=== PATIENT | female | born 1950 | race Caucasian/White ===

== ENCOUNTER → 2017-10-06 | Outpatient (CLI) | payer MEDICARE ==
[~2017-10-06] MED LIST: BACTRIM DS TAB1 EACH PO; COUMADIN 2.5MG2.5 M1 PO; DUONEB 2.5-0.5 M3 ML INH; LASIX 20 MG TAB20 MG PO; PERCOCET PO; POTASSIUM20 PO; PROTONIX40 M1 PO; TYLENOL325 MG PO
== END ==
LOC: M.WC 01:49
DX: I87.322 Chronic venous hypertension (idiopathic) with inflammation of left lower extremity (principal); I70.242 Atherosclerosis of native arteries of left leg with ulceration of calf; I70.245 Atherosclerosis of native arteries of left leg with ulceration of other part of foot; I70.248 Atherosclerosis of native arteries of left leg with ulceration of other part of lower leg; L97.821 Non-pressure chronic ulcer of other part of left lower leg limited to breakdown of skin; L97.221 Non-pressure chronic ulcer of left calf limited to breakdown of skin; L97.521 Non-pressure chronic ulcer of other part of left foot limited to breakdown of skin; J44.9 Chronic obstructive pulmonary disease, unspecified; E66.01 Morbid (severe) obesity due to excess calories; K21.9 Gastro-esophageal reflux disease without esophagitis; I50.9 Heart failure, unspecified; Z86.718 Personal history of other venous thrombosis and embolism; Z68.41 Body mass index [BMI] 40.0-44.9, adult; Z87.891 Personal history of nicotine dependence

== ENCOUNTER → 2017-10-13 | Outpatient (CLI) | payer MEDICARE | LOC: M.WC 02:41 | DX: E11.622 Type 2 diabetes mellitus with other skin ulcer (principal); I87.312 Chronic venous hypertension (idiopathic) with ulcer of left lower extremity; L97.821 Non-pressure chronic ulcer of other part of left lower leg limited to breakdown of skin; I70.242 Atherosclerosis of native arteries of left leg with ulceration of calf; L97.221 Non-pressure chronic ulcer of left calf limited to breakdown of skin; I87.321 Chronic venous hypertension (idiopathic) with inflammation of right lower extremity; E11.621 Type 2 diabetes mellitus with foot ulcer; L97.521 Non-pressure chronic ulcer of other part of left foot limited to breakdown of skin; E11.51 Type 2 diabetes mellitus with diabetic peripheral angiopathy without gangrene; I50.9 Heart failure, unspecified; K21.9 Gastro-esophageal reflux disease without esophagitis; J44.9 Chronic obstructive pulmonary disease, unspecified; E66.01 Morbid (severe) obesity due to excess calories; Z68.41 Body mass index [BMI] 40.0-44.9, adult; Z87.891 Personal history of nicotine dependence; Z86.718 Personal history of other venous thrombosis and embolism ==

== ENCOUNTER → 2017-10-20 | Outpatient (CLI) | payer MEDICARE | LOC: M.WC 01:23 | DX: I87.312 Chronic venous hypertension (idiopathic) with ulcer of left lower extremity (principal); E11.622 Type 2 diabetes mellitus with other skin ulcer; I70.242 Atherosclerosis of native arteries of left leg with ulceration of calf; L97.821 Non-pressure chronic ulcer of other part of left lower leg limited to breakdown of skin; E11.621 Type 2 diabetes mellitus with foot ulcer; L97.521 Non-pressure chronic ulcer of other part of left foot limited to breakdown of skin; I82.592 Chronic embolism and thrombosis of other specified deep vein of left lower extremity; J44.9 Chronic obstructive pulmonary disease, unspecified; K21.9 Gastro-esophageal reflux disease without esophagitis; E11.51 Type 2 diabetes mellitus with diabetic peripheral angiopathy without gangrene; I50.9 Heart failure, unspecified; E66.01 Morbid (severe) obesity due to excess calories; Z68.41 Body mass index [BMI] 40.0-44.9, adult; Z86.718 Personal history of other venous thrombosis and embolism; Z87.891 Personal history of nicotine dependence ==

== ENCOUNTER → 2017-10-27 | Outpatient (CLI) | payer MEDICARE | LOC: M.WC 01:16 | DX: E11.622 Type 2 diabetes mellitus with other skin ulcer (principal); I87.312 Chronic venous hypertension (idiopathic) with ulcer of left lower extremity; L97.321 Non-pressure chronic ulcer of left ankle limited to breakdown of skin; L97.811 Non-pressure chronic ulcer of other part of right lower leg limited to breakdown of skin; L97.821 Non-pressure chronic ulcer of other part of left lower leg limited to breakdown of skin; I70.242 Atherosclerosis of native arteries of left leg with ulceration of calf; J44.9 Chronic obstructive pulmonary disease, unspecified; E66.01 Morbid (severe) obesity due to excess calories; Z68.41 Body mass index [BMI] 40.0-44.9, adult ==

== ENCOUNTER → 2017-10-29 | Outpatient (CLI) | payer MEDICARE | LOC: M.WC 01:51 | DX: E11.622 Type 2 diabetes mellitus with other skin ulcer (principal); I70.242 Atherosclerosis of native arteries of left leg with ulceration of calf; L97.221 Non-pressure chronic ulcer of left calf limited to breakdown of skin; L97.521 Non-pressure chronic ulcer of other part of left foot limited to breakdown of skin; E11.51 Type 2 diabetes mellitus with diabetic peripheral angiopathy without gangrene; I50.9 Heart failure, unspecified; K21.9 Gastro-esophageal reflux disease without esophagitis; J44.9 Chronic obstructive pulmonary disease, unspecified; Z86.718 Personal history of other venous thrombosis and embolism; Z87.891 Personal history of nicotine dependence ==

== ENCOUNTER → 2017-11-03 | Outpatient (CLI) | payer MEDICARE | LOC: M.WC 01:26 | DX: I87.312 Chronic venous hypertension (idiopathic) with ulcer of left lower extremity (principal); I70.245 Atherosclerosis of native arteries of left leg with ulceration of other part of foot; I70.242 Atherosclerosis of native arteries of left leg with ulceration of calf; L97.221 Non-pressure chronic ulcer of left calf limited to breakdown of skin; L97.521 Non-pressure chronic ulcer of other part of left foot limited to breakdown of skin; J44.9 Chronic obstructive pulmonary disease, unspecified; E66.01 Morbid (severe) obesity due to excess calories; K21.9 Gastro-esophageal reflux disease without esophagitis; I50.9 Heart failure, unspecified; Z87.891 Personal history of nicotine dependence; Z68.41 Body mass index [BMI] 40.0-44.9, adult; Z86.718 Personal history of other venous thrombosis and embolism ==

== ENCOUNTER → 2017-11-11 | Outpatient (CLI) | payer MEDICARE | LOC: M.WC 01:49 | DX: E11.621 Type 2 diabetes mellitus with foot ulcer (principal); L97.521 Non-pressure chronic ulcer of other part of left foot limited to breakdown of skin; E11.622 Type 2 diabetes mellitus with other skin ulcer; I87.321 Chronic venous hypertension (idiopathic) with inflammation of right lower extremity; L97.821 Non-pressure chronic ulcer of other part of left lower leg limited to breakdown of skin; I82.592 Chronic embolism and thrombosis of other specified deep vein of left lower extremity; I87.312 Chronic venous hypertension (idiopathic) with ulcer of left lower extremity; J44.9 Chronic obstructive pulmonary disease, unspecified; E66.01 Morbid (severe) obesity due to excess calories; Z68.41 Body mass index [BMI] 40.0-44.9, adult; K21.9 Gastro-esophageal reflux disease without esophagitis; E11.51 Type 2 diabetes mellitus with diabetic peripheral angiopathy without gangrene; I50.9 Heart failure, unspecified; Z87.891 Personal history of nicotine dependence; Z86.718 Personal history of other venous thrombosis and embolism ==

== ENCOUNTER → 2017-11-17 | Outpatient (CLI) | payer MEDICARE | LOC: M.WC 11-10 10:00 | DX: E11.622 Type 2 diabetes mellitus with other skin ulcer (principal); I82.592 Chronic embolism and thrombosis of other specified deep vein of left lower extremity; I87.312 Chronic venous hypertension (idiopathic) with ulcer of left lower extremity; I70.242 Atherosclerosis of native arteries of left leg with ulceration of calf; I87.321 Chronic venous hypertension (idiopathic) with inflammation of right lower extremity; L97.821 Non-pressure chronic ulcer of other part of left lower leg limited to breakdown of skin; L97.811 Non-pressure chronic ulcer of other part of right lower leg limited to breakdown of skin; J44.9 Chronic obstructive pulmonary disease, unspecified; E66.01 Morbid (severe) obesity due to excess calories; Z68.41 Body mass index [BMI] 40.0-44.9, adult; K21.9 Gastro-esophageal reflux disease without esophagitis; E11.51 Type 2 diabetes mellitus with diabetic peripheral angiopathy without gangrene; I50.9 Heart failure, unspecified; Z86.718 Personal history of other venous thrombosis and embolism; Z87.891 Personal history of nicotine dependence ==

== ENCOUNTER → 2017-12-08 | Outpatient (CLI) | payer MEDICARE | LOC: M.WC 11:00 | DX: E11.621 Type 2 diabetes mellitus with foot ulcer (principal); L97.823 Non-pressure chronic ulcer of other part of left lower leg with necrosis of muscle; L97.521 Non-pressure chronic ulcer of other part of left foot limited to breakdown of skin; I87.332 Chronic venous hypertension (idiopathic) with ulcer and inflammation of left lower extremity; I70.242 Atherosclerosis of native arteries of left leg with ulceration of calf; E66.01 Morbid (severe) obesity due to excess calories; E11.51 Type 2 diabetes mellitus with diabetic peripheral angiopathy without gangrene; I50.9 Heart failure, unspecified; K21.9 Gastro-esophageal reflux disease without esophagitis; J44.9 Chronic obstructive pulmonary disease, unspecified; Z86.718 Personal history of other venous thrombosis and embolism; Z68.41 Body mass index [BMI] 40.0-44.9, adult; Z87.891 Personal history of nicotine dependence ==

== ENCOUNTER → 2017-12-22 | Outpatient (CLI) | payer MEDICARE | LOC: M.WC 12-15 01:56 | DX: I87.321 Chronic venous hypertension (idiopathic) with inflammation of right lower extremity (principal); E11.622 Type 2 diabetes mellitus with other skin ulcer; I87.312 Chronic venous hypertension (idiopathic) with ulcer of left lower extremity; I70.242 Atherosclerosis of native arteries of left leg with ulceration of calf; I82.592 Chronic embolism and thrombosis of other specified deep vein of left lower extremity; L97.821 Non-pressure chronic ulcer of other part of left lower leg limited to breakdown of skin; L97.811 Non-pressure chronic ulcer of other part of right lower leg limited to breakdown of skin; J44.9 Chronic obstructive pulmonary disease, unspecified; K21.9 Gastro-esophageal reflux disease without esophagitis; I50.9 Heart failure, unspecified; E11.51 Type 2 diabetes mellitus with diabetic peripheral angiopathy without gangrene; E66.01 Morbid (severe) obesity due to excess calories; Z68.41 Body mass index [BMI] 40.0-44.9, adult; Z87.891 Personal history of nicotine dependence ==

== ENCOUNTER → 2017-12-31 | Outpatient (CLI) | payer MEDICARE | LOC: M.WC 02:09 | DX: I87.321 Chronic venous hypertension (idiopathic) with inflammation of right lower extremity (principal); L97.811 Non-pressure chronic ulcer of other part of right lower leg limited to breakdown of skin; I87.312 Chronic venous hypertension (idiopathic) with ulcer of left lower extremity; L97.821 Non-pressure chronic ulcer of other part of left lower leg limited to breakdown of skin; L97.521 Non-pressure chronic ulcer of other part of left foot limited to breakdown of skin; I70.242 Atherosclerosis of native arteries of left leg with ulceration of calf; I82.592 Chronic embolism and thrombosis of other specified deep vein of left lower extremity; J44.9 Chronic obstructive pulmonary disease, unspecified; E66.01 Morbid (severe) obesity due to excess calories; Z68.41 Body mass index [BMI] 40.0-44.9, adult; K21.9 Gastro-esophageal reflux disease without esophagitis; E11.51 Type 2 diabetes mellitus with diabetic peripheral angiopathy without gangrene; I50.9 Heart failure, unspecified; Z86.718 Personal history of other venous thrombosis and embolism; Z87.891 Personal history of nicotine dependence ==

== ENCOUNTER → 2018-01-05 | Outpatient (CLI) | payer MEDICARE | LOC: M.WC 01:07 | DX: I87.321 Chronic venous hypertension (idiopathic) with inflammation of right lower extremity (principal); E11.622 Type 2 diabetes mellitus with other skin ulcer; I87.312 Chronic venous hypertension (idiopathic) with ulcer of left lower extremity; I70.242 Atherosclerosis of native arteries of left leg with ulceration of calf; L97.811 Non-pressure chronic ulcer of other part of right lower leg limited to breakdown of skin; L97.821 Non-pressure chronic ulcer of other part of left lower leg limited to breakdown of skin; I82.592 Chronic embolism and thrombosis of other specified deep vein of left lower extremity; J44.9 Chronic obstructive pulmonary disease, unspecified; E66.01 Morbid (severe) obesity due to excess calories; K21.9 Gastro-esophageal reflux disease without esophagitis; E11.51 Type 2 diabetes mellitus with diabetic peripheral angiopathy without gangrene; Z86.718 Personal history of other venous thrombosis and embolism; Z87.891 Personal history of nicotine dependence ==

== ENCOUNTER → 2018-01-12 | Outpatient (CLI) | payer MEDICARE | LOC: M.WC 02:48 | DX: E11.622 Type 2 diabetes mellitus with other skin ulcer (principal); I87.312 Chronic venous hypertension (idiopathic) with ulcer of left lower extremity; L97.821 Non-pressure chronic ulcer of other part of left lower leg limited to breakdown of skin; L97.521 Non-pressure chronic ulcer of other part of left foot limited to breakdown of skin; I82.592 Chronic embolism and thrombosis of other specified deep vein of left lower extremity; I70.242 Atherosclerosis of native arteries of left leg with ulceration of calf; E11.51 Type 2 diabetes mellitus with diabetic peripheral angiopathy without gangrene; E66.01 Morbid (severe) obesity due to excess calories; I11.0 Hypertensive heart disease with heart failure; I50.9 Heart failure, unspecified; K21.9 Gastro-esophageal reflux disease without esophagitis; J44.9 Chronic obstructive pulmonary disease, unspecified; F06.32 Mood disorder due to known physiological condition with major depressive-like episode; Z87.891 Personal history of nicotine dependence; Z68.41 Body mass index [BMI] 40.0-44.9, adult ==

== ENCOUNTER → 2018-01-19 | Outpatient (CLI) | payer MEDICARE | LOC: M.WC 03:06 | DX: E11.622 Type 2 diabetes mellitus with other skin ulcer (principal); I87.312 Chronic venous hypertension (idiopathic) with ulcer of left lower extremity; L97.821 Non-pressure chronic ulcer of other part of left lower leg limited to breakdown of skin; I87.321 Chronic venous hypertension (idiopathic) with inflammation of right lower extremity; I70.242 Atherosclerosis of native arteries of left leg with ulceration of calf; I82.592 Chronic embolism and thrombosis of other specified deep vein of left lower extremity; J44.9 Chronic obstructive pulmonary disease, unspecified; E66.01 Morbid (severe) obesity due to excess calories; Z68.41 Body mass index [BMI] 40.0-44.9, adult; F06.32 Mood disorder due to known physiological condition with major depressive-like episode; K21.9 Gastro-esophageal reflux disease without esophagitis; E11.51 Type 2 diabetes mellitus with diabetic peripheral angiopathy without gangrene; Z86.718 Personal history of other venous thrombosis and embolism; I50.9 Heart failure, unspecified; Z87.891 Personal history of nicotine dependence ==

== ENCOUNTER → 2018-01-26 | Outpatient (CLI) | payer MEDICARE | LOC: M.WC 04:28 | DX: E11.622 Type 2 diabetes mellitus with other skin ulcer (principal); I87.312 Chronic venous hypertension (idiopathic) with ulcer of left lower extremity; L97.821 Non-pressure chronic ulcer of other part of left lower leg limited to breakdown of skin; I70.242 Atherosclerosis of native arteries of left leg with ulceration of calf; I82.592 Chronic embolism and thrombosis of other specified deep vein of left lower extremity; J44.9 Chronic obstructive pulmonary disease, unspecified; E66.01 Morbid (severe) obesity due to excess calories; F06.32 Mood disorder due to known physiological condition with major depressive-like episode; K21.9 Gastro-esophageal reflux disease without esophagitis; E11.51 Type 2 diabetes mellitus with diabetic peripheral angiopathy without gangrene; I50.9 Heart failure, unspecified; Z68.41 Body mass index [BMI] 40.0-44.9, adult; Z86.718 Personal history of other venous thrombosis and embolism; Z87.891 Personal history of nicotine dependence ==

== ENCOUNTER → 2018-02-09 | Outpatient (CLI) | payer MEDICARE | LOC: M.WC 02-02 02:52 | DX: E11.622 Type 2 diabetes mellitus with other skin ulcer (principal); I87.312 Chronic venous hypertension (idiopathic) with ulcer of left lower extremity; L97.821 Non-pressure chronic ulcer of other part of left lower leg limited to breakdown of skin; I87.321 Chronic venous hypertension (idiopathic) with inflammation of right lower extremity; L97.811 Non-pressure chronic ulcer of other part of right lower leg limited to breakdown of skin; I70.242 Atherosclerosis of native arteries of left leg with ulceration of calf; E11.51 Type 2 diabetes mellitus with diabetic peripheral angiopathy without gangrene; I50.9 Heart failure, unspecified; E66.01 Morbid (severe) obesity due to excess calories; K21.9 Gastro-esophageal reflux disease without esophagitis; J44.9 Chronic obstructive pulmonary disease, unspecified; F06.32 Mood disorder due to known physiological condition with major depressive-like episode; Z87.891 Personal history of nicotine dependence; Z86.718 Personal history of other venous thrombosis and embolism; Z68.41 Body mass index [BMI] 40.0-44.9, adult ==

== ENCOUNTER → 2018-02-16 | Outpatient (CLI) | payer MEDICARE | LOC: M.WC 03:41 | DX: E11.622 Type 2 diabetes mellitus with other skin ulcer (principal); I87.312 Chronic venous hypertension (idiopathic) with ulcer of left lower extremity; L97.821 Non-pressure chronic ulcer of other part of left lower leg limited to breakdown of skin; I87.321 Chronic venous hypertension (idiopathic) with inflammation of right lower extremity; L97.811 Non-pressure chronic ulcer of other part of right lower leg limited to breakdown of skin; J44.9 Chronic obstructive pulmonary disease, unspecified; E66.01 Morbid (severe) obesity due to excess calories; F06.32 Mood disorder due to known physiological condition with major depressive-like episode; K21.9 Gastro-esophageal reflux disease without esophagitis; E11.51 Type 2 diabetes mellitus with diabetic peripheral angiopathy without gangrene; I50.9 Heart failure, unspecified; Z86.718 Personal history of other venous thrombosis and embolism; Z87.891 Personal history of nicotine dependence; Z68.41 Body mass index [BMI] 40.0-44.9, adult ==

== ENCOUNTER → 2018-03-02 | Outpatient (CLI) | payer MEDICARE | LOC: M.WC 04:13 | DX: E11.622 Type 2 diabetes mellitus with other skin ulcer (principal); I70.242 Atherosclerosis of native arteries of left leg with ulceration of calf; L97.821 Non-pressure chronic ulcer of other part of left lower leg limited to breakdown of skin; I87.312 Chronic venous hypertension (idiopathic) with ulcer of left lower extremity; I87.321 Chronic venous hypertension (idiopathic) with inflammation of right lower extremity; L97.811 Non-pressure chronic ulcer of other part of right lower leg limited to breakdown of skin; E11.51 Type 2 diabetes mellitus with diabetic peripheral angiopathy without gangrene; I50.9 Heart failure, unspecified; K21.9 Gastro-esophageal reflux disease without esophagitis; E66.01 Morbid (severe) obesity due to excess calories; F06.32 Mood disorder due to known physiological condition with major depressive-like episode; J44.9 Chronic obstructive pulmonary disease, unspecified; Z87.891 Personal history of nicotine dependence; Z68.41 Body mass index [BMI] 40.0-44.9, adult; Z86.73 Personal history of transient ischemic attack (TIA), and cerebral infarction without residual deficits; E11.621 Type 2 diabetes mellitus with foot ulcer ==

== ENCOUNTER → 2018-03-16 | Outpatient (CLI) | payer MEDICARE | LOC: M.WC 03-09 03:34 | DX: E11.622 Type 2 diabetes mellitus with other skin ulcer (principal); I70.242 Atherosclerosis of native arteries of left leg with ulceration of calf; L97.221 Non-pressure chronic ulcer of left calf limited to breakdown of skin; I50.9 Heart failure, unspecified; I87.2 Venous insufficiency (chronic) (peripheral); E66.01 Morbid (severe) obesity due to excess calories; K21.9 Gastro-esophageal reflux disease without esophagitis; J44.9 Chronic obstructive pulmonary disease, unspecified; F06.32 Mood disorder due to known physiological condition with major depressive-like episode; Z86.718 Personal history of other venous thrombosis and embolism; Z68.41 Body mass index [BMI] 40.0-44.9, adult; Z87.891 Personal history of nicotine dependence ==

== ENCOUNTER → 2018-03-23 | Outpatient (CLI) | payer MEDICARE | LOC: M.WC 04:05 | DX: I87.312 Chronic venous hypertension (idiopathic) with ulcer of left lower extremity (principal); E11.622 Type 2 diabetes mellitus with other skin ulcer; L97.821 Non-pressure chronic ulcer of other part of left lower leg limited to breakdown of skin; J44.9 Chronic obstructive pulmonary disease, unspecified; E66.01 Morbid (severe) obesity due to excess calories; F06.32 Mood disorder due to known physiological condition with major depressive-like episode; I50.9 Heart failure, unspecified; K21.9 Gastro-esophageal reflux disease without esophagitis; E11.51 Type 2 diabetes mellitus with diabetic peripheral angiopathy without gangrene; Z86.718 Personal history of other venous thrombosis and embolism; Z87.891 Personal history of nicotine dependence; Z68.41 Body mass index [BMI] 40.0-44.9, adult ==

== ENCOUNTER → 2018-04-13 | Outpatient (CLI) | payer MEDICARE | LOC: M.WC 04:39 | DX: I87.312 Chronic venous hypertension (idiopathic) with ulcer of left lower extremity (principal); E11.621 Type 2 diabetes mellitus with foot ulcer; L97.521 Non-pressure chronic ulcer of other part of left foot limited to breakdown of skin; E11.622 Type 2 diabetes mellitus with other skin ulcer; I70.248 Atherosclerosis of native arteries of left leg with ulceration of other part of lower leg; L97.821 Non-pressure chronic ulcer of other part of left lower leg limited to breakdown of skin; J44.9 Chronic obstructive pulmonary disease, unspecified; E66.01 Morbid (severe) obesity due to excess calories; K21.9 Gastro-esophageal reflux disease without esophagitis; E11.51 Type 2 diabetes mellitus with diabetic peripheral angiopathy without gangrene; I50.9 Heart failure, unspecified; Z86.718 Personal history of other venous thrombosis and embolism; Z87.891 Personal history of nicotine dependence ==

== ENCOUNTER → 2018-05-04 | Outpatient (CLI) | payer MEDICARE | LOC: M.WC 04-20 05:12 | DX: E11.622 Type 2 diabetes mellitus with other skin ulcer (principal); I70.242 Atherosclerosis of native arteries of left leg with ulceration of calf; I87.312 Chronic venous hypertension (idiopathic) with ulcer of left lower extremity; L97.221 Non-pressure chronic ulcer of left calf limited to breakdown of skin; I87.321 Chronic venous hypertension (idiopathic) with inflammation of right lower extremity; L97.811 Non-pressure chronic ulcer of other part of right lower leg limited to breakdown of skin; E11.51 Type 2 diabetes mellitus with diabetic peripheral angiopathy without gangrene; I89.0 Lymphedema, not elsewhere classified; K21.9 Gastro-esophageal reflux disease without esophagitis; E66.01 Morbid (severe) obesity due to excess calories; I82.592 Chronic embolism and thrombosis of other specified deep vein of left lower extremity; I50.9 Heart failure, unspecified; J44.9 Chronic obstructive pulmonary disease, unspecified; F06.32 Mood disorder due to known physiological condition with major depressive-like episode; Z68.41 Body mass index [BMI] 40.0-44.9, adult; Z87.891 Personal history of nicotine dependence ==

== ENCOUNTER → 2018-05-27 | Outpatient (CLI) | payer MEDICARE | LOC: M.WC 05-11 04:08 | DX: E11.622 Type 2 diabetes mellitus with other skin ulcer (principal); L97.221 Non-pressure chronic ulcer of left calf limited to breakdown of skin; E11.621 Type 2 diabetes mellitus with foot ulcer; L97.521 Non-pressure chronic ulcer of other part of left foot limited to breakdown of skin; I87.312 Chronic venous hypertension (idiopathic) with ulcer of left lower extremity; I70.242 Atherosclerosis of native arteries of left leg with ulceration of calf; I50.9 Heart failure, unspecified; E66.01 Morbid (severe) obesity due to excess calories; J44.9 Chronic obstructive pulmonary disease, unspecified; K21.9 Gastro-esophageal reflux disease without esophagitis; F32.9 Major depressive disorder, single episode, unspecified; F41.9 Anxiety disorder, unspecified; Z68.41 Body mass index [BMI] 40.0-44.9, adult; Z86.718 Personal history of other venous thrombosis and embolism; Z87.891 Personal history of nicotine dependence ==

== ENCOUNTER → 2018-07-14 | Outpatient (CLI) | payer MEDICARE | LOC: M.WC 07-08 04:56 → M.ULTRA 05:11 → M.WC 09:00 | DX: E11.622 Type 2 diabetes mellitus with other skin ulcer (principal); L97.811 Non-pressure chronic ulcer of other part of right lower leg limited to breakdown of skin; E11.621 Type 2 diabetes mellitus with foot ulcer; L97.521 Non-pressure chronic ulcer of other part of left foot limited to breakdown of skin; I82.592 Chronic embolism and thrombosis of other specified deep vein of left lower extremity; I87.312 Chronic venous hypertension (idiopathic) with ulcer of left lower extremity; I87.321 Chronic venous hypertension (idiopathic) with inflammation of right lower extremity; I70.242 Atherosclerosis of native arteries of left leg with ulceration of calf; E11.51 Type 2 diabetes mellitus with diabetic peripheral angiopathy without gangrene; E66.9 Obesity, unspecified; E66.01 Morbid (severe) obesity due to excess calories; I50.9 Heart failure, unspecified; J44.9 Chronic obstructive pulmonary disease, unspecified; K21.9 Gastro-esophageal reflux disease without esophagitis; F06.32 Mood disorder due to known physiological condition with major depressive-like episode; F41.1 Generalized anxiety disorder; F32.9 Major depressive disorder, single episode, unspecified; Z68.41 Body mass index [BMI] 40.0-44.9, adult; Z87.891 Personal history of nicotine dependence ==

== ENCOUNTER → 2018-07-19 | Outpatient (CLI) | payer MEDICARE | LOC: M.WC 05:20 | DX: E11.622 Type 2 diabetes mellitus with other skin ulcer (principal); I87.321 Chronic venous hypertension (idiopathic) with inflammation of right lower extremity; L97.811 Non-pressure chronic ulcer of other part of right lower leg limited to breakdown of skin; E11.621 Type 2 diabetes mellitus with foot ulcer; I87.312 Chronic venous hypertension (idiopathic) with ulcer of left lower extremity; L97.521 Non-pressure chronic ulcer of other part of left foot limited to breakdown of skin; I70.242 Atherosclerosis of native arteries of left leg with ulceration of calf; L97.228 Non-pressure chronic ulcer of left calf with other specified severity; I82.592 Chronic embolism and thrombosis of other specified deep vein of left lower extremity; E11.51 Type 2 diabetes mellitus with diabetic peripheral angiopathy without gangrene; E66.01 Morbid (severe) obesity due to excess calories; I50.9 Heart failure, unspecified; J44.9 Chronic obstructive pulmonary disease, unspecified; K21.9 Gastro-esophageal reflux disease without esophagitis; F32.9 Major depressive disorder, single episode, unspecified; F06.32 Mood disorder due to known physiological condition with major depressive-like episode; F41.1 Generalized anxiety disorder; Z87.891 Personal history of nicotine dependence; Z68.41 Body mass index [BMI] 40.0-44.9, adult ==

== ENCOUNTER → 2018-07-22 | Outpatient (CLI) | payer MEDICARE | LOC: M.WC 07-21 05:56 | DX: E11.621 Type 2 diabetes mellitus with foot ulcer (principal); I87.313 Chronic venous hypertension (idiopathic) with ulcer of bilateral lower extremity; L97.521 Non-pressure chronic ulcer of other part of left foot limited to breakdown of skin; I70.245 Atherosclerosis of native arteries of left leg with ulceration of other part of foot; E11.622 Type 2 diabetes mellitus with other skin ulcer; L97.811 Non-pressure chronic ulcer of other part of right lower leg limited to breakdown of skin; I82.592 Chronic embolism and thrombosis of other specified deep vein of left lower extremity; E11.51 Type 2 diabetes mellitus with diabetic peripheral angiopathy without gangrene; E66.01 Morbid (severe) obesity due to excess calories; I50.9 Heart failure, unspecified; J44.9 Chronic obstructive pulmonary disease, unspecified; K21.9 Gastro-esophageal reflux disease without esophagitis; F41.1 Generalized anxiety disorder; F32.9 Major depressive disorder, single episode, unspecified; F06.32 Mood disorder due to known physiological condition with major depressive-like episode; Z87.891 Personal history of nicotine dependence; Z68.41 Body mass index [BMI] 40.0-44.9, adult ==

== ENCOUNTER → 2018-07-25 | Outpatient (CLI) | payer MEDICARE | LOC: M.WC 01:49 | DX: E11.621 Type 2 diabetes mellitus with foot ulcer (principal); I87.323 Chronic venous hypertension (idiopathic) with inflammation of bilateral lower extremity; L97.521 Non-pressure chronic ulcer of other part of left foot limited to breakdown of skin; I70.245 Atherosclerosis of native arteries of left leg with ulceration of other part of foot; E11.622 Type 2 diabetes mellitus with other skin ulcer; L97.811 Non-pressure chronic ulcer of other part of right lower leg limited to breakdown of skin; E11.51 Type 2 diabetes mellitus with diabetic peripheral angiopathy without gangrene; I82.592 Chronic embolism and thrombosis of other specified deep vein of left lower extremity; I50.9 Heart failure, unspecified; J44.9 Chronic obstructive pulmonary disease, unspecified; E66.01 Morbid (severe) obesity due to excess calories; K21.9 Gastro-esophageal reflux disease without esophagitis; F06.32 Mood disorder due to known physiological condition with major depressive-like episode; F41.1 Generalized anxiety disorder; Z87.891 Personal history of nicotine dependence; Z68.41 Body mass index [BMI] 40.0-44.9, adult ==

== ENCOUNTER → 2018-07-29 | Outpatient (CLI) | payer MEDICARE | LOC: M.WC 05:28 | DX: E11.621 Type 2 diabetes mellitus with foot ulcer (principal); I87.312 Chronic venous hypertension (idiopathic) with ulcer of left lower extremity; L97.521 Non-pressure chronic ulcer of other part of left foot limited to breakdown of skin; E11.622 Type 2 diabetes mellitus with other skin ulcer; I87.321 Chronic venous hypertension (idiopathic) with inflammation of right lower extremity; L97.811 Non-pressure chronic ulcer of other part of right lower leg limited to breakdown of skin; I82.592 Chronic embolism and thrombosis of other specified deep vein of left lower extremity; E66.01 Morbid (severe) obesity due to excess calories; K21.9 Gastro-esophageal reflux disease without esophagitis; I73.9 Peripheral vascular disease, unspecified; I50.9 Heart failure, unspecified; E66.9 Obesity, unspecified; J44.9 Chronic obstructive pulmonary disease, unspecified; F41.1 Generalized anxiety disorder; Z87.891 Personal history of nicotine dependence; Z68.41 Body mass index [BMI] 40.0-44.9, adult ==

== ENCOUNTER → 2018-08-05 | Outpatient (CLI) | payer MEDICARE | LOC: M.WC 03:45 | DX: E11.621 Type 2 diabetes mellitus with foot ulcer (principal); I87.312 Chronic venous hypertension (idiopathic) with ulcer of left lower extremity; I70.245 Atherosclerosis of native arteries of left leg with ulceration of other part of foot; L97.521 Non-pressure chronic ulcer of other part of left foot limited to breakdown of skin; E11.622 Type 2 diabetes mellitus with other skin ulcer; I87.331 Chronic venous hypertension (idiopathic) with ulcer and inflammation of right lower extremity; L97.811 Non-pressure chronic ulcer of other part of right lower leg limited to breakdown of skin; E11.51 Type 2 diabetes mellitus with diabetic peripheral angiopathy without gangrene; E66.01 Morbid (severe) obesity due to excess calories; I82.592 Chronic embolism and thrombosis of other specified deep vein of left lower extremity; I50.9 Heart failure, unspecified; K21.9 Gastro-esophageal reflux disease without esophagitis; J44.9 Chronic obstructive pulmonary disease, unspecified; F06.32 Mood disorder due to known physiological condition with major depressive-like episode; F41.1 Generalized anxiety disorder; F32.9 Major depressive disorder, single episode, unspecified; Z68.41 Body mass index [BMI] 40.0-44.9, adult; Z87.891 Personal history of nicotine dependence ==

== ENCOUNTER → 2018-08-12 | Outpatient (CLI) | payer MEDICARE | LOC: M.WC 00:42 | DX: E11.621 Type 2 diabetes mellitus with foot ulcer (principal); I87.312 Chronic venous hypertension (idiopathic) with ulcer of left lower extremity; L97.521 Non-pressure chronic ulcer of other part of left foot limited to breakdown of skin; E11.622 Type 2 diabetes mellitus with other skin ulcer; I70.242 Atherosclerosis of native arteries of left leg with ulceration of calf; L97.221 Non-pressure chronic ulcer of left calf limited to breakdown of skin; I82.592 Chronic embolism and thrombosis of other specified deep vein of left lower extremity; I87.321 Chronic venous hypertension (idiopathic) with inflammation of right lower extremity; E11.51 Type 2 diabetes mellitus with diabetic peripheral angiopathy without gangrene; E66.01 Morbid (severe) obesity due to excess calories; I50.9 Heart failure, unspecified; J44.9 Chronic obstructive pulmonary disease, unspecified; K21.9 Gastro-esophageal reflux disease without esophagitis; F06.32 Mood disorder due to known physiological condition with major depressive-like episode; F41.1 Generalized anxiety disorder; F32.9 Major depressive disorder, single episode, unspecified; Z68.41 Body mass index [BMI] 40.0-44.9, adult; Z87.891 Personal history of nicotine dependence ==

== ENCOUNTER → 2018-08-22 | Outpatient (CLI) | payer MEDICARE | LOC: M.WC 08-19 04:49 | DX: E11.621 Type 2 diabetes mellitus with foot ulcer (principal); L97.521 Non-pressure chronic ulcer of other part of left foot limited to breakdown of skin; E11.622 Type 2 diabetes mellitus with other skin ulcer; I87.312 Chronic venous hypertension (idiopathic) with ulcer of left lower extremity; I70.242 Atherosclerosis of native arteries of left leg with ulceration of calf; L97.221 Non-pressure chronic ulcer of left calf limited to breakdown of skin; I87.321 Chronic venous hypertension (idiopathic) with inflammation of right lower extremity; L97.818 Non-pressure chronic ulcer of other part of right lower leg with other specified severity; L97.121 Non-pressure chronic ulcer of left thigh limited to breakdown of skin; L89.892 Pressure ulcer of other site, stage 2; L97.111 Non-pressure chronic ulcer of right thigh limited to breakdown of skin; E66.01 Morbid (severe) obesity due to excess calories; I50.9 Heart failure, unspecified; I82.592 Chronic embolism and thrombosis of other specified deep vein of left lower extremity; J44.9 Chronic obstructive pulmonary disease, unspecified; K21.9 Gastro-esophageal reflux disease without esophagitis; F32.9 Major depressive disorder, single episode, unspecified; F41.1 Generalized anxiety disorder; Z68.41 Body mass index [BMI] 40.0-44.9, adult; Z87.891 Personal history of nicotine dependence ==

== ENCOUNTER → 2018-09-02 | Outpatient (CLI) | payer MEDICARE | LOC: M.WC 04:35 | DX: E11.621 Type 2 diabetes mellitus with foot ulcer (principal); L97.521 Non-pressure chronic ulcer of other part of left foot limited to breakdown of skin; E11.622 Type 2 diabetes mellitus with other skin ulcer; I87.312 Chronic venous hypertension (idiopathic) with ulcer of left lower extremity; I70.242 Atherosclerosis of native arteries of left leg with ulceration of calf; L97.222 Non-pressure chronic ulcer of left calf with fat layer exposed; I87.321 Chronic venous hypertension (idiopathic) with inflammation of right lower extremity; L97.812 Non-pressure chronic ulcer of other part of right lower leg with fat layer exposed; L89.892 Pressure ulcer of other site, stage 2; L97.111 Non-pressure chronic ulcer of right thigh limited to breakdown of skin; L97.121 Non-pressure chronic ulcer of left thigh limited to breakdown of skin; E11.51 Type 2 diabetes mellitus with diabetic peripheral angiopathy without gangrene; E66.01 Morbid (severe) obesity due to excess calories; I11.0 Hypertensive heart disease with heart failure; I50.9 Heart failure, unspecified; I82.592 Chronic embolism and thrombosis of other specified deep vein of left lower extremity; J44.9 Chronic obstructive pulmonary disease, unspecified; K21.9 Gastro-esophageal reflux disease without esophagitis; F06.32 Mood disorder due to known physiological condition with major depressive-like episode; F41.1 Generalized anxiety disorder; F32.9 Major depressive disorder, single episode, unspecified; Z68.41 Body mass index [BMI] 40.0-44.9, adult; Z87.891 Personal history of nicotine dependence ==

== ENCOUNTER → 2018-09-16 | Outpatient (CLI) | payer MEDICARE | LOC: M.WC 04:26 | DX: I87.312 Chronic venous hypertension (idiopathic) with ulcer of left lower extremity (principal); L97.522 Non-pressure chronic ulcer of other part of left foot with fat layer exposed; I70.242 Atherosclerosis of native arteries of left leg with ulceration of calf; L97.221 Non-pressure chronic ulcer of left calf limited to breakdown of skin; E66.01 Morbid (severe) obesity due to excess calories; I82.592 Chronic embolism and thrombosis of other specified deep vein of left lower extremity; K21.9 Gastro-esophageal reflux disease without esophagitis; I50.9 Heart failure, unspecified; J44.9 Chronic obstructive pulmonary disease, unspecified; F06.32 Mood disorder due to known physiological condition with major depressive-like episode; F41.1 Generalized anxiety disorder; F41.9 Anxiety disorder, unspecified; F32.9 Major depressive disorder, single episode, unspecified; Z87.891 Personal history of nicotine dependence; Z68.41 Body mass index [BMI] 40.0-44.9, adult ==

== ENCOUNTER 2018-10-17 12:35 | Inpatient (IN) | payer MEDICARE ==
[~2018-10-17] VITALS: Ht 160 cm; Wt 144.7 kg
[~2018-10-17 12:35] MED LIST changes: -COUMADIN 2.5MG2.5 M1 PO; +COUMADIN 3 MG TA3 M1 PO
[2018-10-17 12:37] VITALS: BP 136/95
[2018-10-17] MEDS ORDERED: XANAX 0.5 MG0.5 MG PO (12:54)
[2018-10-17 13:11] LABS: HEMATOCRIT 31.8 % (37.0-47.0); HEMOGLOBIN 9.6 gm/dL (12.0-15.0); MCH 25.7 pg (26.0-34.0); MCHC 30.2 g/dL (28.0-37.0); MCV 85.2 fL (80.0-100.0); MPV 7.3 fl. (7.2-11.1); NUCLEATED RBCS 0 /100WBC; PLATELET COUNT* 432 thou/uL (150-400); RBC 3.74 mil/uL (4.20-5.00); RDW-CV 17.6 % (10.5-14.5); WBC 19.6 thou/uL (4.0-11.0)
[2018-10-17 13:18] LABS: BE 8.7 mmol/L (-2 to +3)
[2018-10-17 13:20] LABS: PCO2 77.8 mmHg (35.0-45.0); PO2 230.7 mmHg (75.0-100.0)
[2018-10-17 13:20] LABS: ANION GAP < 0 mmol/L (7-16); APTT 34.5 Seconds (25.0-31.3); BUN 28 mg/dL (7-18); CALCIUM 9.3 mg/dL (8.5-10.1); CHLORIDE 95 mmol/L (98-107); CO2 43 mmol/L (21-32); CREATININE 1.5 mg/dL (0.6-1.3); GLUCOSE 277 mg/dL (70-99); INR 1.7; POTASSIUM 5.3 mmol/L (3.5-5.1); SODIUM 137 mmol/L (136-145)
[2018-10-17 13:25] LABS: ABSOLUTE LYMPHOCYTES 0.8 thou/uL (0.8-5.3); ABSOLUTE MONOCYTES 0.6 thou/uL (0.0-1.2); ABSOLUTE NEUTROPHILS 18.2 thou/uL (1.6-8.1)
[2018-10-17 13:26] LABS: ANISOCYTOSIS 1+; HYPOCHROMASIA 1+; PLATELET ESTIMATE INCREASED
[2018-10-17 13:30] LABS: ALBUMIN 2.4 g/dL (3.4-5.0); ALKALINE PHOSPHATASE 113 U/L (46-116); LIPASE 144 U/L (73-393); MAGNESIUM 1.9 mg/dL (1.8-2.4); NT-PRO BRAIN NAT PEPTIDE 5517 pg/mL (<300); SGOT 83 U/L (15-37); SGPT 49 U/L (30-65); TOTAL BILIRUBIN 0.5 mg/dL (<0.1-1.0); TOTAL PROTEIN 7.9 g/dL (6.4-8.2)
[2018-10-17 13:32] LABS: TROPONIN-I LEVEL 16.19 ng/mL (<0.06)
[2018-10-17 13:45] LABS: URINE BILIRUBIN NEGATIVE (Negative); URINE BLOOD TRACE (Negative); URINE CLARITY CLEAR; URINE COLOR YELLOW; URINE GLUCOSE-RANDOM TRACE (Negative); URINE KETONES NEGATIVE (Negative); URINE LEUKOCYTES-REFLEX NEGATIVE (Negative); URINE NITRITE-REFLEX NEGATIVE (Negative); URINE PROTEIN 3+ (Negative); URINE SPECIFIC GRAVITY 1.025 (1.005-1.030)
[2018-10-17 13:52] LABS: SQUAMOUS >10 Many /LPF (0-3)
[2018-10-17 13:53] LABS: AMORPHOUS URATES Moderate /LPF (None Seen); BACTERIA-REFLEX None Seen /HPF (None Seen); CASTS None Seen /LPF (None Seen); URINE RBC None Seen /HPF (0-2); URINE WBC-REFLEX None Seen /HPF (0-5)
[2018-10-17 15:00] VITALS: BP 177/63
[2018-10-17 15:14] VITALS: BP 150/74
--- NOTE | 2018-10-17 15:39 | EKG ---
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 : 1950 Requested By: Gómez Palacios Order Number: [id number] MD: Keshav Ling Measurements Intervals [place] Rate: 101 P: 52 NC: 167 QRS: -55 QRSD: 131 T: 129 QT: 345 QTc: 448 Interpretive Statements Sinus tachycardia Probable left atrial enlargement Right bundle branch block LVH with IVCD and secondary repol abnrm Baseline wander in lead(s) V2 Electronically Signed On 10-17-2018 15:39:24 [employer]ING [employer]UTTER by Keshav Ling [email or web address] <ELECTRONICALLY SIGNED> By: Keshav Ling MD, [facility] 10/17/18 1539 1246 1246 Keshav Ling MD, [facility] /EPI
[2018-10-17 16:01] VITALS: BP 107/32
--- NOTE | 2018-10-17 16:19 | 2DMMODE ---
[place] [address] 2 D/M-MODE ECHOCARDIOGRAM Name: PAULYBASILIO MORAN Brandon Room: [address] IN [facility]#: [id number] Admission: 10/17/18 Attend Phys: Jennifer Vizcarra MD Discharge: Date of : 52 Date of Service: 10/17/18 1619 Report #: [id number] THIS REPORT FOR: //name// APPROVED REPORT Study performed: 10/17/2018 15:34:07 EXAM: Comprehensive 2D, Doppler, and color-flow Echocardiogram Patient Location: In-Patient Room #: [facility] Status: routine BSA: 2.34 HR: 94 bpm BP: 177/63 mmHg Rhythm: NSR Other Information Study Quality: Good Indications Elevated Troponin 2D Dimensions IVSd: 19.83 (7-11mm) LVOT Diam: 19.95 (18-24mm) LVDd: 43.46 mm PWd: 15.12 (7-11mm) Ascending Ao: 31.52 (22-36mm) LVDs: 29.22 (25-40mm) Aortic Root: 28.46 mm Pulmonary Valve PV Peak Gerard.: 1.33 m/s PV Peak Gr.: 7.10 mmHg Tricuspid Valve RAP Estimate: 5.00 mmHg TR Peak Gr.: 44.86 mmHg RVSP: 49.00 mmHg PA Pressure: 49.00 mmHg Left Ventricle The left ventricle is normal size. Moderate concentric left ventricular hypertrophy. The left ventricular systolic function is normal. The left ventricular ejection fraction is within the normal range. LVEF is 60%. Right Ventricle The right ventricle is normal size. The right ventricular systolic [facility] [address] [place] [address] 2 D/M-MODE ECHOCARDIOGRAM Name: BASILIO COATS Room: [address] IN [facility]#: [id number] Admission: 10/17/18 Attend Phys: Jennifer Vizcarra MD Discharge: Date of : 52 Date of Service: 10/17/18 1619 Report #: [id number] function is normal. Atria The left atrium size is normal. Aortic Valve Mild aortic valve sclerosis. No aortic regurgitation is present. Mitral Valve The mitral valve is normal in structure. There is no mitral valve regurgitation noted. Tricuspid Valve The tricuspid valve is normal in structure. Mild tricuspid regurgitation. Moderate pulmonary hypertension. Pulmonic Valve The pulmonary valve is normal in structure. There is no pulmonic valvular regurgitation. Great Vessels The aortic root is normal in size. Pericardium There is no pericardial effusion. <Conclusion> The left ventricle is normal size. Moderate concentric left ventricular hypertrophy. The left ventricular systolic function is normal. The left ventricular ejection fraction is within the normal range. LVEF is 60%. The right ventricle is normal size. The left atrium size is normal. Mild aortic valve sclerosis. The mitral valve is normal in structure. The tricuspid valve is normal in structure. <ELECTRONICALLY SIGNED> By: Keshav Ling MD, FACC 10/17/181618 18 18 Keshav Ling MD, FACC /INF
[2018-10-17 18:16] LABS: BE 12.7 mmol/L (-2 to +3); PO2 71.9 mmHg (75.0-100.0); pH 7.311 (7.340-7.450)
[2018-10-17 18:17] LABS: PCO2 83.6 mmHg (35.0-45.0)
[2018-10-17 20:00] VITALS: BP 133/49
[2018-10-17 21:00] VITALS: BP 128/51
[2018-10-18] VITALS (22 sets, daily range): BP systolic 87–112; BP diastolic 48–85
[2018-10-18 04:33] LABS: ABSOLUTE LYMPHOCYTES 0.5 thou/uL (0.8-5.3); ABSOLUTE MONOCYTES 0.4 thou/uL (0.0-1.2); ABSOLUTE NEUTROPHILS 18.2 thou/uL (1.6-8.1); BASOPHILS 0.1 %; HEMATOCRIT 30.5 % (37.0-47.0); HEMOGLOBIN 9.1 gm/dL (12.0-15.0); LYMPHOCYTES 2.6 %; MCH 26.4 pg (26.0-34.0); MCHC 29.9 g/dL (28.0-37.0); MCV 88.1 fL (80.0-100.0); MPV 7.4 fl. (7.2-11.1); NUCLEATED RBCS 0 /100WBC; PLATELET COUNT* 368 thou/uL (150-400); POLYS 95.3 %; RBC 3.46 mil/uL (4.20-5.00); RDW-CV 17.4 % (10.5-14.5); WBC 19.1 thou/uL (4.0-11.0)
[2018-10-18 04:55] LABS: ALBUMIN 2.1 g/dL (3.4-5.0); CALCIUM 8.3 mg/dL (8.5-10.1); CREATININE 1.3 mg/dL (0.6-1.3); PHOSPHORUS* 4.6 mg/dL (2.5-4.9); POTASSIUM 5.1 mmol/L (3.5-5.1); TOTAL BILIRUBIN 0.2 mg/dL (<0.1-1.0); TOTAL PROTEIN 6.7 g/dL (6.4-8.2)
[2018-10-18 05:53] LABS: BE 9.6 mmol/L (-2 to +3); PO2 72.8 mmHg (75.0-100.0)
[2018-10-18 05:57] LABS: PCO2 92.3 mmHg (35.0-45.0); pH 7.249 (7.340-7.450)
[2018-10-18 09:51] LABS: BE 12.5 mmol/L (-2 to +3); PCO2 89.4 mmHg (35.0-45.0); PO2 75.3 mmHg (75.0-100.0); pH 7.288 (7.340-7.450)
--- NOTE | 2018-10-18 11:10 | CON ---
[address] [address] CONSULTATION Name: PAULYBASILIO Brandon Room: [address] IN M.R.#: [id number] Admission: 10/17/18 Attend Phys: Jennifer Vizcarra MD Discharge: Date of : 52 Report #: [id number] THIS REPORT FOR: //name// CC: Kenny Vizcarra REASON FOR CONSULTATION: Respiratory failure. HISTORY OF PRESENT ILLNESS: This is a 67-year-old female patient with history of chronic respiratory failure, COPD, at baseline she is on Trilogy with 5 liters oxygen bled through the Trilogy during sleep and 2-3 liter oxygen during the daytime. Also, there is a mention of noncompliance in her history. She presented to the hospital with increasing shortness of breath of few days' duration. Apparently, she has been somnolent and falling back to sleep. Upon arrival to the ER, she was in distress and she was placed on BiPAP. This morning, she was changed to AVAPS. She has history of chronic wounds and she follows with the wound clinic. She has no chest pain. When I saw her this morning, she was on AVAPS, awake, alert, answered question appropriately, she was on 50% FiO2. She denied chest pain. She feels her breathing was at baseline while she was on the BiPAP, but per RN there were some episodes of desaturation occasionally. She remains n.p.o. She has no change in the chronic lower extremity edema. She denied any headache or blurring of vision. She reports that she has no wheezes at baseline, she is slightly more wheezy and she is having more cough. She has history of DVT, on Coumadin at home in addition to chronic kidney disease. ALLERGIES: FENTANYL. PAST MEDICAL HISTORY: History of COPD, chronic respiratory failure on oxygen and Trilogy, history of obesity, history of DVT on anticoagulation, history of diastolic heart failure, anemia. PAST SURGICAL HISTORY: Tonsillectomy, , leg surgery in the past with chronic wounds. SOCIAL HISTORY: Ex-smoker, smoked for significant number of years, but she quit. Does not drink alcohol excessively, does not abuse drugs. FAMILY HISTORY: Reviewed with the patient, noncontributory. HOME MEDICATIONS: Coumadin, Tylenol, Xanax, DuoNeb, Lasix and potassium supplement. REVIEW OF SYSTEMS: She denied any urinary frequency [place] [address] CONSULTATION Name: BASILIO COATS Room: [address] IN [facility]#: [id number] Admission: 10/17/18 Attend Phys: Jennifer Vizcarra MD Discharge: Date of : 52 Report #: [id number] nausea or vomiting, but she has shortness of breath. She has no chest pain or palpitation. She has no headache, no trauma, no dysphagia, no dysarthria, no change in vision, but she felt fever and chills at home. She denied any numbness. She has chronic wounds. PHYSICAL EXAMINATION: VITAL SIGNS: Her blood pressure is 112/70, breathing 20 times a minute, pulse rate of 94, temperature 36.8. HEENT: Head normocephalic, atraumatic. Pupils reactive to light. Oral cavity not examined, she has BiPAP mask in place. Her speech actually is clear, I was able to understand her through the BiPAP mask. External ears look healthy and normal. NECK: Supple. She has right IJ in place. CHEST: Diminished air movement bilaterally with an expiratory wheeze and rhonchi at the bases. HEART: S1, S2. ABDOMEN: Obese, soft, lax, benign, nontender. Positive bowel sounds. No masses felt. EXTREMITIES: Lower extremity, trace edema, but she has also dressing on both lower extremities for chronic wounds. I did not disturb the dressing. NEUROLOGIC: Moving 4 extremities spontaneously. No focal weakness. Cranial nerves grossly normal. PSYCHIATRIC: Mood and affect appropriate. Good insight and judgment. LYMPHATICS: No palpable lymph node. LABORATORY DATA: White blood count 19.6, hemoglobin 9.6 and platelets of 432. ABGs, she had multiple sets of ABGs, the last ABG this morning was 7.24/92/72, and this was done on BiPAP of 50%, but she was awake, alert, protecting the airways. Her INR upon hospitalization was 1.7. Her potassium is 5.3 with a chloride of 95, bicarbonate 43, BUN of 28, creatinine 1.5. Troponin elevated, BNP elevated. She had 3 sets of chest x-rays, the chest x-ray showed cardiomegaly with basilar infiltrates. IMPRESSION: 1. Uhmje-hs-vkresys hypoxic and hypercapnic respiratory failure. 2. Sepsis. 3. Wound infection. 4. Pulmonary infiltrate. 5. Pneumonia. 6. Decubitus ulcer. 7. Chronic obstructive pulmonary disease exacerbation. 8. Chronic obstructive pulmonary disease. 9. Chronic kidney disease. At this point, the patient does not require vasopressors. I would recommend gentle hydration given the diastolic heart failure and consider p.r.n. diuresis, [address] [address] CONSULTATION Name: BASILIO COATS Room: [address] IN [facility]#: [id number] Admission: 10/17/18 Attend Phys: Jennifer Vizcarra MD Discharge: Date of : 52 Report #: [id number] monitor electrolytes and kidney function. Continue antibiotics, continue steroids, scheduled nebulization treatments. The patient currently protecting the airways; however, I would still watch her in the ICU, keep low threshold for intubation. Continue to follow her ABGs. She was changed to AVAPS this morning by RT, which I agree with. We need to follow up ABGs. Cardiology following along. Discussed with the patient and her daughter and RN. Thank you for the consult. We will follow along with you. We will do followup ABGs, chest x-rays. <ELECTRONICALLY SIGNED> By: Luigi Parish MD 10/18/18 1110 0931 [id number] Parish MD /nt
[2018-10-19] VITALS (13 sets, daily range): BP systolic 95–136; BP diastolic 52–79
[2018-10-19 04:17] LABS: ABSOLUTE LYMPHOCYTES 0.5 thou/uL (0.8-5.3); ABSOLUTE MONOCYTES 0.4 thou/uL (0.0-1.2); ABSOLUTE NEUTROPHILS 14.2 thou/uL (1.6-8.1); BASOPHILS 0.1 %; HEMOGLOBIN 8.7 gm/dL (12.0-15.0); LYMPHOCYTES 3.1 %; MCH 26.3 pg (26.0-34.0); MCHC 30.1 g/dL (28.0-37.0); MCV 87.3 fL (80.0-100.0); MONOCYTES 2.8 %; MPV 7.4 fl. (7.2-11.1); NUCLEATED RBCS 0 /100WBC; PLATELET COUNT* 341 thou/uL (150-400); RBC 3.32 mil/uL (4.20-5.00); RDW-CV 17.5 % (10.5-14.5); WBC 15.1 thou/uL (4.0-11.0)
[2018-10-19 04:51] LABS: ALBUMIN 1.9 g/dL (3.4-5.0); ALKALINE PHOSPHATASE 88 U/L (46-116); ANION GAP < 0 mmol/L (7-16); BUN 38 mg/dL (7-18); CALCIUM 8.3 mg/dL (8.5-10.1); CHLORIDE 100 mmol/L (98-107); CO2 39 mmol/L (21-32); CREATININE 1.5 mg/dL (0.6-1.3); GLUCOSE 272 mg/dL (70-99); POTASSIUM 4.7 mmol/L (3.5-5.1); SGOT 37 U/L (15-37); SGPT 39 U/L (30-65); SODIUM 138 mmol/L (136-145); TOTAL BILIRUBIN 0.3 mg/dL (<0.1-1.0); TOTAL PROTEIN 7.2 g/dL (6.4-8.2)
[2018-10-19 08:23] LABS: BE 9.4 mmol/L (-2 to +3); PCO2 68.3 mmHg (35.0-45.0); PO2 79.6 mmHg (75.0-100.0)
--- NOTE | 2018-10-19 11:42 | CON ---
[address] [address] CONSULTATION Name: PAULYBASILIO Brandon Room: [address] IN .R.#: [id number] Admission: 10/17/18 Attend Phys: Jennifer Vizcarra MD Discharge: Date of : 52 Report #: [id number] THIS REPORT FOR: //name// CC: Kenny Vizcarra DATE OF SERVICE: 10/18/2018 INFECTIOUS DISEASE CONSULTATION ATTENDING PHYSICIAN: Jennifer Vizcarra MD. REASON FOR EVALUATION: Sepsis with associated respiratory failure, felt to have a pneumonitis as well as bilateral lower extremity inflammatory eruption, left lower extremity cellulitis. HISTORY OF PRESENT ILLNESS: Chart reviewed, patient examined. This is a 67-year-old woman with extensive medical history given her age, has underlying COPD, acute on chronic respiratory failure with hypercarbia, also has history of lymphedema in the lower extremities. She has had multiple wounds as well as skin and soft tissue infectious complications. She is followed intermittently at the wound care center. I had actually seen her in 03/2017. She presents to the hospital with progressive dyspnea, associated somnolence and encephalopathy. She does arouse only for brief periods. Due to her hemodynamic lability, she was transferred from the Emergency Room to the Intensive Care Unit. She is on BiPAP at this point. Blood cultures have been collected here sterile thus far. She was started empirically on broad-spectrum antibiotic therapy with cefepime, vancomycin and fluconazole. She does have a history of MRSA associated wound infections. ALLERGIES: FENTANYL. CURRENT MEDICATIONS: Include aspirin, levofloxacin, vancomycin, insulin lispro, cefepime, p.r.n. analgesics, antiemetics, enoxaparin, fluconazole, pantoprazole. PAST MEDICAL HISTORY: Above noted COPD, history of deep venous thrombosis, chronic anemia, cardiomyopathy with congestive heart failure. She is obese. SOCIAL HISTORY: Nonsmoker, no ethanol, no illicit drug use. FAMILY HISTORY: Noncontributory. REVIEW OF SYSTEMS: Somewhat limited due to her somnolence, otherwise unremarkable. A 10-point review of systems is otherwise noted in the [place] [address] CONSULTATION Name: BASILIO COATS Room: [address] IN [facility]#: [id number] Admission: 10/17/18 Attend Phys: Jennifer Vizcarra MD Discharge: Date of : 52 Report #: [id number] PHYSICAL EXAMINATION: GENERAL: She appears chronically ill, she is supine, maintained with BiPAP. She does arouse when her name is called and makes eye contact, moderate distress, appears to be undernourished. VITAL SIGNS: Temperature 98.2, pulse 80, respirations 20, blood pressure 105/65. SKIN: Warm, dry, no rashes. HEENT: BiPAP in place. Extraocular muscles intact. NECK: Supple. LUNGS: Scattered coarse breath sounds, occasional end-expiratory wheeze. HEART: Regular, distant. No appreciated murmur. ABDOMEN: Soft, nontender. There are no peritoneal signs. GENITOURINARY: Deferred. RECTAL: Deferred. EXTREMITIES: Lower extremities have compression dressings to below the knee. Toes are somewhat cool to touch. LABORATORY DATA: Blood cultures sterile thus far. Chest x-ray, some patchy infiltrates in the lung bases. Most recent ABG, pH 7.249, pCO2 of 92.3, pO2 of 72.8 on FiO2 of 50% BiPAP. TSH of 1.020. Troponin level was elevated at 17.9. CBC: White count 19.1, H and H 9.1 and 30.5, platelets of 368. Lactic acid of 1.4, down from 3.2 on admission. Urinalysis unremarkable. ASSESSMENT: Respiratory failure, acute on chronic situation. This is likely multifactorial, can exclude a pneumonitis, certainly appears to have a non-ST elevation myocardial infarction, which is certainly contributing. She is encephalopathic that will be due to the elevated carbon dioxide. I agree with empiric antimicrobial therapy presumption of pneumonitis, does have lower extremity wounds, I have seen there is a concern about skin and soft tissue infection as well. We will work with the wound care nurse. Continue to monitor expectantly. Wean off support as allowed. <ELECTRONICALLY SIGNED> By: Anjel Kang MD 10/19/18 1142 0930 [id number] Kang MD /nt
[2018-10-20] VITALS (14 sets, daily range): BP systolic 95–128; BP diastolic 54–69
[2018-10-20 06:08] LABS: HEMATOCRIT 25.7 % (37.0-47.0); HEMOGLOBIN 7.7 gm/dL (12.0-15.0); MCV 86.8 fL (80.0-100.0); MPV 7.5 fl. (7.2-11.1); RBC 2.97 mil/uL (4.20-5.00); RDW-CV 17.6 % (10.5-14.5); WBC 12.7 thou/uL (4.0-11.0)
[2018-10-20 06:12] LABS: ANION GAP < 0 mmol/L (7-16); BUN 43 mg/dL (7-18); CALCIUM 8.4 mg/dL (8.5-10.1); CHLORIDE 103 mmol/L (98-107); CO2 42 mmol/L (21-32); CREATININE 1.4 mg/dL (0.6-1.3); GLUCOSE 248 mg/dL (70-99); POTASSIUM 4.4 mmol/L (3.5-5.1); SODIUM 143 mmol/L (136-145)
[2018-10-20 11:22] LABS: BE 10.9 mmol/L (-2 to +3); PO2 64.5 mmHg (75.0-100.0); pH 7.325 (7.340-7.450)
[2018-10-20 11:24] LABS: PCO2 76.2 mmHg (35.0-45.0)
[2018-10-21] VITALS (14 sets, daily range): BP systolic 101–144; BP diastolic 58–79
[2018-10-21 11:53] LABS: CALCIUM 8.8 mg/dL (8.5-10.1); CREATININE 1.4 mg/dL (0.6-1.3); POTASSIUM 4.4 mmol/L (3.5-5.1)
[2018-10-22] VITALS (10 sets, daily range): BP systolic 96–129; BP diastolic 53–69
[2018-10-22 05:39] LABS: HEMATOCRIT 24.4 % (37.0-47.0); HEMOGLOBIN 7.4 gm/dL (12.0-15.0); MCH 26.3 pg (26.0-34.0); MCHC 30.4 g/dL (28.0-37.0); MCV 86.4 fL (80.0-100.0); MPV 7.5 fl. (7.2-11.1); RBC 2.82 mil/uL (4.20-5.00); RDW-CV 16.6 % (10.5-14.5); WBC 15.4 thou/uL (4.0-11.0)
[2018-10-22 05:44] LABS: CALCIUM 8.5 mg/dL (8.5-10.1); CREATININE 1.3 mg/dL (0.6-1.3); MAGNESIUM 2.2 mg/dL (1.8-2.4); POTASSIUM 4.2 mmol/L (3.5-5.1)
[2018-10-23] VITALS: BP 105/63
[2018-10-23 04:00] VITALS: BP 109/67
[2018-10-23 05:02] LABS: APTT 37.5 Seconds (25.0-31.3); INR 1.3; PROTIME 13.7 Seconds (9.20-11.50)
[2018-10-23 12:00] VITALS: BP 134/75
[2018-10-23 16:00] VITALS: BP 135/75
[2018-10-23 19:30] VITALS: BP 96/55
[2018-10-24] VITALS: BP 109/63
[2018-10-24 04:00] VITALS: BP 109/59
[2018-10-24 07:30] VITALS: BP 123/73
[2018-10-24 11:55] VITALS: BP 127/80
[2018-10-24 15:34] VITALS: BP 97/62
[2018-10-24 19:30] VITALS: BP 100/52
[2018-10-25] VITALS: BP 102/60
[2018-10-25 04:00] VITALS: BP 131/76
[2018-10-25 06:01] LABS: HEMATOCRIT 22.2 % (37.0-47.0); MCH 27.9 pg (26.0-34.0); MCHC 31.1 g/dL (28.0-37.0); MCV 89.8 fL (80.0-100.0); MPV 7.4 fl. (7.2-11.1); RBC 2.48 mil/uL (4.20-5.00); RDW-CV 18.3 % (10.5-14.5); WBC 10.9 thou/uL (4.0-11.0)
[2018-10-25 06:19] LABS: HEMOGLOBIN 6.9 gm/dL (12.0-15.0)
[2018-10-25 06:40] LABS: ANION GAP < 0 mmol/L (7-16); BUN 39 mg/dL (7-18); CALCIUM 8.5 mg/dL (8.5-10.1); CHLORIDE 102 mmol/L (98-107); CO2 44 mmol/L (21-32); GLUCOSE 220 mg/dL (70-99); MAGNESIUM 2.3 mg/dL (1.8-2.4); POTASSIUM 4.3 mmol/L (3.5-5.1); SODIUM 143 mmol/L (136-145)
[2018-10-25 08:00] VITALS: BP 130/60
[2018-10-25 11:51] VITALS: BP 114/70
[2018-10-25 13:31] VITALS: BP 109/47; BP 114/69; BP 138/81; BP 140/70
[2018-10-25 19:30] VITALS: BP 134/66
[2018-10-26] VITALS: BP 152/79
[2018-10-26 04:00] VITALS: BP 133/67
[2018-10-26 05:32] LABS: HEMATOCRIT 26.1 % (37.0-47.0); HEMOGLOBIN 8.3 gm/dL (12.0-15.0); MCH 28.4 pg (26.0-34.0); MCHC 31.7 g/dL (28.0-37.0); MCV 89.6 fL (80.0-100.0); MPV 7.5 fl. (7.2-11.1); RBC 2.91 mil/uL (4.20-5.00); RDW-CV 17.8 % (10.5-14.5); WBC 10.9 thou/uL (4.0-11.0)
[2018-10-26 05:49] LABS: ANION GAP < 0 mmol/L (7-16); BUN 36 mg/dL (7-18); CALCIUM 8.4 mg/dL (8.5-10.1); CHLORIDE 101 mmol/L (98-107); CO2 44 mmol/L (21-32); CREATININE 1.1 mg/dL (0.6-1.3); GLUCOSE 248 mg/dL (70-99); POTASSIUM 4.1 mmol/L (3.5-5.1); SODIUM 144 mmol/L (136-145)
[2018-10-26 07:35] VITALS: BP 127/54
[2018-10-26 11:53] VITALS: BP 158/78
[2018-10-26 16:00] VITALS: BP 117/69
[2018-10-26 19:30] VITALS: BP 110/54
[2018-10-27] VITALS (8 sets, daily range): BP systolic 96–135; BP diastolic 47–69
[2018-10-27 12:38] LABS: BUN 38 mg/dL (7-18); CALCIUM 8.7 mg/dL (8.5-10.1); CHLORIDE 97 mmol/L (98-107); CREATININE 1.2 mg/dL (0.6-1.3); GLUCOSE 202 mg/dL (70-99); MAGNESIUM 2.2 mg/dL (1.8-2.4); POTASSIUM 3.5 mmol/L (3.5-5.1); SODIUM 142 mmol/L (136-145)
[2018-10-27 12:40] LABS: CO2 > 45 mmol/L (21-32)
[2018-10-28] VITALS (8 sets, daily range): BP systolic 96–100; BP diastolic 45–63
[2018-10-28 05:43] LABS: BUN 39 mg/dL (7-18); CALCIUM 8.9 mg/dL (8.5-10.1); CHLORIDE 100 mmol/L (98-107); CREATININE 1.1 mg/dL (0.6-1.3); GLUCOSE 114 mg/dL (70-99); MAGNESIUM 2.3 mg/dL (1.8-2.4); POTASSIUM 3.8 mmol/L (3.5-5.1); SODIUM 144 mmol/L (136-145)
[2018-10-28 05:49] LABS: CO2 > 45 mmol/L (21-32)
[2018-10-28] MEDS ORDERED: IPRAT-ALBUT 0.5-3 ML INH (12:50)
[2018-10-28] MEDS ORDERED: CARVEDILOL3.125 MG PO (12:50)
[2018-10-28] MEDS ORDERED: ATORVASTATIN CA20 MG PO (12:50)
[2018-10-28] MEDS ORDERED: LASIX 40 MG TAB40 M1 PO (12:51)
[2018-10-28] MEDS ORDERED: ASPIR 8181 MG PO (12:51)
[2018-10-28] MEDS ORDERED: SENNA PLUS TAB1 EACH PO (12:52)
[2018-10-28] MEDS ORDERED: NYSTATIN15 G1 TOP (12:53)
[2018-10-28] MEDS ORDERED: LANTUS100 UNIT/M SUBQ (12:53)
[2018-10-28] MEDS ORDERED: HUMALOG100 UNIT/1 SUBQ ×2 (12:53)
[2018-10-28] MEDS ORDERED: VITAMIN D1000 UNI1 PO (12:54)
[2018-10-28] MEDS ORDERED: NEXIUM40 MG PO (12:54)
[2018-10-28] MEDS ORDERED: UNICOMPLEX M TA1 TA1 PO (12:55)
[2018-10-28] MEDS ORDERED: PREDNISONE 20 M20 MG PO (12:56)
== END 2018-10-28 16:00 | DRG 871 ==
LOC: M.ERS 12:35 → M.ICU 13:43 → M.TBA-ER 13:43 → M.ICU 13:43 → M.2W 10-22 14:29
PROVIDERS: Family Medicine; Internal Medicine; Internal Medicine Critical Care Medicine; Internal Medicine Pulmonary Disease; ADMIT Family Medicine
PROC: 02HV33Z Insertion of Infusion Device into Superior Vena Cava, Percutaneous Approach (ICD-10-PCS; principal; 2018-10-17)
PROC: 5A09457 Assistance with Respiratory Ventilation, 24-96 Consecutive Hours, Continuous Positive Airway Pressure (ICD-10-PCS; principal; 2018-10-17)
PROC: 5A09457 Assistance with Respiratory Ventilation, 24-96 Consecutive Hours, Continuous Positive Airway Pressure (ICD-10-PCS; 2018-10-19)
PROC: 5A09357 Assistance with Respiratory Ventilation, Less than 24 Consecutive Hours, Continuous Positive Airway Pressure (ICD-10-PCS; 2018-10-21)
PROC: 5A09357 Assistance with Respiratory Ventilation, Less than 24 Consecutive Hours, Continuous Positive Airway Pressure (ICD-10-PCS; 2018-10-22)
PROC: 5A09357 Assistance with Respiratory Ventilation, Less than 24 Consecutive Hours, Continuous Positive Airway Pressure (ICD-10-PCS; 2018-10-23)
PROC: 5A09357 Assistance with Respiratory Ventilation, Less than 24 Consecutive Hours, Continuous Positive Airway Pressure (ICD-10-PCS; 2018-10-24)
PROC: 5A09357 Assistance with Respiratory Ventilation, Less than 24 Consecutive Hours, Continuous Positive Airway Pressure (ICD-10-PCS; 2018-10-25)
PROC: 30233N1 Transfusion of Nonautologous Red Blood Cells into Peripheral Vein, Percutaneous Approach (ICD-10-PCS; 2018-10-25)
PROC: 5A09357 Assistance with Respiratory Ventilation, Less than 24 Consecutive Hours, Continuous Positive Airway Pressure (ICD-10-PCS; 2018-10-26)
PROC: 5A09357 Assistance with Respiratory Ventilation, Less than 24 Consecutive Hours, Continuous Positive Airway Pressure (ICD-10-PCS; 2018-10-27)
DX: A41.9 Sepsis, unspecified organism (principal); J96.22 Acute and chronic respiratory failure with hypercapnia; J96.21 Acute and chronic respiratory failure with hypoxia; I21.4 Non-ST elevation (NSTEMI) myocardial infarction; I50.33 Acute on chronic diastolic (congestive) heart failure; J15.6 Pneumonia due to other Gram-negative bacteria; Z68.43 Body mass index [BMI] 50.0-59.9, adult; L03.116 Cellulitis of left lower limb; J44.0 Chronic obstructive pulmonary disease with (acute) lower respiratory infection; J44.1 Chronic obstructive pulmonary disease with (acute) exacerbation; I42.9 Cardiomyopathy, unspecified; N18.4 Chronic kidney disease, stage 4 (severe); T82.838A Hemorrhage due to vascular prosthetic devices, implants and grafts, initial encounter; Y83.8 Other surgical procedures as the cause of abnormal reaction of the patient, or of later complication, without mention of misadventure at the time of the procedure; Y92.238 Other place in hospital as the place of occurrence of the external cause; G47.33 Obstructive sleep apnea (adult) (pediatric); R65.20 Severe sepsis without septic shock; I48.0 Paroxysmal atrial fibrillation; E66.01 Morbid (severe) obesity due to excess calories; B36.9 Superficial mycosis, unspecified; F41.9 Anxiety disorder, unspecified; D50.9 Iron deficiency anemia, unspecified; Z86.718 Personal history of other venous thrombosis and embolism; Z87.891 Personal history of nicotine dependence; Z98.891 History of uterine scar from previous surgery; Z79.01 Long term (current) use of anticoagulants; Z79.899 Other long term (current) drug therapy; Z88.8 Allergy status to other drugs, medicaments and biological substances

== ENCOUNTER 2019-06-13 14:22 | Inpatient (IN) | payer MEDICARE ==
[2019-06-13] VITALS (9 sets, daily range): BP systolic 92–155; BP diastolic 40–72
[~2019-06-13] VITALS: Ht 157.5 cm; Wt 145.8 kg
[~2019-06-13 14:22] MED LIST changes: +ASPIR 8181 MG PO; +ATORVASTATIN CA20 MG PO; +CARVEDILOL3.125 MG PO; +HUMALOG100 UNIT/1 SUBQ; +IPRAT-ALBUT 0.5-3 ML INH; +LANTUS100 UNIT/M SUBQ; +LASIX 40 MG TAB40 M1 PO; +NEXIUM40 MG PO; +NYSTATIN15 G1 TOP; +PREDNISONE 20 M20 MG PO; +SENNA PLUS TAB1 EACH PO; +UNICOMPLEX M TA1 TA1 PO; +VITAMIN D1000 UNI1 PO; +XANAX 0.5 MG0.5 MG PO
[2019-06-13 15:05] LABS: ABSOLUTE BASOPHILS 0.1 thou/uL (0.0-0.2); ABSOLUTE EOSINOPHILS 0.4 thou/uL (0.0-0.7); ABSOLUTE LYMPHOCYTES 3.6 thou/uL (0.8-5.3); ABSOLUTE MONOCYTES 1.2 thou/uL (0.0-1.2); ABSOLUTE NEUTROPHILS 12.8 thou/uL (1.6-8.1); BASOPHILS 0.6 %; EOSINOPHILS 2.1 %; HEMATOCRIT 37.1 % (37.0-47.0); HEMOGLOBIN 10.8 gm/dL (12.0-15.0); LYMPHOCYTES 19.8 %; MCHC 29.1 g/dL (28.0-37.0); MCV 89.3 fL (80.0-100.0); MONOCYTES 6.7 %; MPV 7.3 fl. (7.2-11.1); NUCLEATED RBCS 0 /100WBC; PLATELET COUNT* 576 thou/uL (150-400); POLYS 70.8 %; RBC 4.15 mil/uL (4.20-5.00); RDW-CV 17.8 % (10.5-14.5); WBC 18.1 thou/uL (4.0-11.0)
--- NOTE | 2019-06-13 15:08 | EKG ---
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 : 1950 Requested By: Jagdish Herring Order Number: [id number] MD: Kenny Nixon Measurements Intervals [place] Rate: 59 P: 0 ND: 107 QRS: -68 QRSD: 135 T: 97 QT: 342 QTc: 339 Interpretive Statements Sinus rhythm Ventricular premature complex Short ND interval Right bundle branch block LVH with IVCD and secondary repol abnrm Short QT interval Compared to ECG 10/17/2018 12:46:21 Ventricular premature complex(es) now present Short ND interval now present Short QT interval now present Sinus tachycardia no longer present Electronically Signed On 06-13-2019 15:08:29 CDT by Kenny Nixon [email or web address] <ELECTRONICALLY SIGNED> By: Kenny Nixon MD, FAC 06/13/19 1508 1434 1434 Kenny Nixon MD, [facility] /EPI
[2019-06-13 15:12] LABS: CALCIUM 9.7 mg/dL (8.5-10.1); CREATININE 1.4 mg/dL (0.6-1.3); POTASSIUM 4.6 mmol/L (3.5-5.1)
[2019-06-13 15:23] LABS: ALBUMIN 3.2 g/dL (3.4-5.0); TOTAL BILIRUBIN 0.3 mg/dL (<0.1-1.0); TOTAL PROTEIN 9.2 g/dL (6.4-8.2); TROPONIN-I LEVEL 0.14 ng/mL (<0.06)
[2019-06-13 15:29] LABS: INR 1.5; PROTIME 14.8 Seconds (9.20-11.50)
--- NOTE | 2019-06-13 16:06 | NUR ---
DR SOARES AT BEDSIDE SETTING UP FOR CENTRAL LINE PLACEMENT
[2019-06-13 16:22] LABS: BE 5.7 mmol/L (-2 to +3); pH 7.363 (7.340-7.450)
[2019-06-13 16:23] LABS: PCO2 59.4 mmHg (35.0-45.0); PO2 > 488.8 mmHg (75.0-100.0)
--- NOTE | 2019-06-13 19:54 | NUR ---
PATIENT ADMITTED TO ICU 4 REMAINS ON VENT SPOKE WITH DR DE JESUS AND JUDITH VIERA. CONSENT FOR CATH DONE.
[2019-06-14] VITALS (22 sets, daily range): BP systolic 102–163; BP diastolic 46–73
[2019-06-14 05:05] LABS: HEMATOCRIT 31.7 % (37.0-47.0); HEMOGLOBIN 9.8 gm/dL (12.0-15.0); MCH 26.5 pg (26.0-34.0); MCHC 30.8 g/dL (28.0-37.0); RBC 3.69 mil/uL (4.20-5.00); RDW-CV 17.8 % (10.5-14.5); WBC 10.7 thou/uL (4.0-11.0)
[2019-06-14 05:20] LABS: INR 1.5; PROTIME 15.6 Seconds (9.20-11.50)
[2019-06-14 05:28] LABS: CREATININE 1.7 mg/dL (0.6-1.3); MAGNESIUM 2.1 mg/dL (1.8-2.4); POTASSIUM 3.9 mmol/L (3.5-5.1)
--- NOTE | 2019-06-14 07:19 | NUR ---
RECEIVED REPORT AND ASSUMED CARE AT 1900. VSS. ASSESSMENT COMPLETED CHARTED. WOUND CARE CONSULTED/ PICTURES ON CHARTE. MEDICATION ADMIN PER EMAR. POSITION CHANGED EVERY TWO HOURS AND PRN.
[2019-06-14 08:30] LABS: BE 6.5 mmol/L (-2 to +3); pH 7.379 (7.340-7.450)
[2019-06-14 08:33] LABS: CHOLESTEROL 210 mg/dL (<200); HDL CHOLESTEROL 45 mg/dL (>40); LDL CHOLESTEROL 95 mg/dL (<100); TC:HDL 4.7 Ratio (Not establshd); TRIGLYCERIDE 354 mg/dL (<150); VLDL 71 mg/dL (<40)
[2019-06-14 08:34] LABS: SERUM ASSESSMENT Clear
[2019-06-14 08:34] LABS: PCO2 57.2 mmHg (35.0-45.0)
--- NOTE | 2019-06-14 13:22 | NUR ---
ICU rounds-Pt on vent. Per nurse, Pt hasn't left home since November. Wound care following. Pt may need at trach at some point during this hospital stay. ?ESLD. Pt to have heart cath today. Spoke with Pt's dtr, Pina via phone, she provided some history. Dtr confirmed that Pt hasn't "really" left the house since November. Dtr unsure if Pt has went to any Drs appts, dtr asked that CM speak with Pt's . Left left VM for Pt's and will continue to try to reach to obtain hx and to assess 's ability to continue to care for Pt at home. is Pt's CG. Per dtr, she believes that Pt and get along ok at home, dtr checks on them. Per previous note, Pt has home o2 and a trilogy through [facility]. Hx of [facility] skilled. CM to continue to follow for disposition.
--- NOTE | 2019-06-14 14:05 | 2DMMODE ---
[place] [address] 2 D/M-MODE ECHOCARDIOGRAM Name: BASILIO COATS Brandon Room: [address] IN [facility]#: [id number] Admission: 06/13/19 Attend Phys: Jefferson Ware, Discharge: Date of : 52 Date of Service: 06/14/19 1405 Report #: [id number] THIS REPORT FOR: //name// APPROVED REPORT Study performed: 06/14/2019 09:37:44 EXAM: Comprehensive 2D, Doppler, and color-flow Echocardiogram Patient Location: In-Patient Room #: [facility] Status: routine BSA: 2.33 HR: 74 bpm BP: 129/71 mmHg Rhythm: NSR Other Information Technically limited study due to body habitus, inability to position patient, off axis apical images. 2D Dimensions IVSd: 17.05 (7-11mm) LVOT Diam: 20.18 (18-24mm) LVDd: 48.85 mm PWd: 15.56 (7-11mm) Ascending Ao: 27.71 (22-36mm) LVDs: 32.46 (25-40mm) Aortic Root: 30.39 mm Aortic Valve AoV Peak Gerard.: 1.51 m/s AO Peak Gr.: 9.11 mmHg LVOT Max P.04 mmHg AO Mean Gr.: 4.77 mmHg LVOT Mean P.97 mmHg LVOT Max V: 1.12 m/s AO V2 VTI: 29.86 cm LVOT Mean V: 0.62 m/s SREEDHAR (VTI): 2.34 cm2 LVOT V1 VTI: 21.84 cm Mitral Valve E/A Ratio: 0.85 MV Decel. Time: 240.35 ms MV E Max Gerard.: 0.93 m/s MV PHT: 69.70 ms MVA (PHT): 3.16 cm2 Pulmonary Valve PV Peak Gerard.: 1.16 m/s PV Peak Gr.: 5[place]42 [place] [address] 2 D/M-MODE ECHOCARDIOGRAM Name: PAULYBASILIO MORAN Brandon Room: [address] IN [facility].#: [id number] Admission: 06/13/19 Attend Phys: Jefferson Ware, Discharge: Date of : 52 Date of Service: 06/14/19 1405 Report #: [id number] Tricuspid Valve RAP Estimate: 5.00 mmHg TR Peak Gr.: 36.26 mmHg RVSP: 41.00 mmHg PA Pressure: 41.00 mmHg Left Ventricle The left ventricle is normal size. There is normal LV segmental wall motion. Mild concentric left ventricular hypertrophy. Left ventricular systolic function is normal. The left ventricular ejection fraction is within the normal range. LVEF is 60%. Grade I - abnormal relaxation pattern. Right Ventricle The right ventricle is normal size. The right ventricular systolic function is normal. Atria The left atrium size is normal. The right atrium size is normal. Aortic Valve Mild aortic valve sclerosis. No aortic regurgitation is present. There is no aortic valvular stenosis. Mitral Valve Mild mitral annular calcification. Trace mitral regurgitation. No evidence of mitral valve stenosis. Tricuspid Valve The tricuspid valve is normal in structure. Mild tricuspid regurgitation Mild pulmonary hypertension. Pulmonic Valve The pulmonary valve is normal in structure. There is no pulmonic valvular regurgitation. Great Vessels The aortic root is normal in size. IVC is normal in size and collapses >50% with inspiration. Pericardium There is no pericardial effusion. <Conclusion> The left ventricle is normal size. Mild concentric [place] [address] 2 D/M-MODE ECHOCARDIOGRAM Name: BASILIO COATS Brandon Room: [address] IN [facility]#: [id number] Admission: 06/13/19 Attend Phys: Jefferson Ware, Discharge: Date of : 52 Date of Service: 06/14/19 1405 Report #: [id number] Left ventricular systolic function is normal. The left ventricular ejection fraction is within the normal range. LVEF is 60%. Grade I - abnormal relaxation pattern. The right ventricle is normal size. The left atrium size is normal. Mild aortic valve sclerosis. No aortic regurgitation is present. There is no aortic valvular stenosis. Mild mitral annular calcification. Trace mitral regurgitation. No evidence of mitral valve stenosis. The tricuspid valve is normal in structure. Mild tricuspid regurgitation Mild pulmonary hypertension. IVC is normal in size and collapses >50% with inspiration. There is no pericardial effusion. There is normal LV segmental wall motion. <ELECTRONICALLY SIGNED> By: Keshav Ling MD, [facility] 06/14/19 1405 1405 1405 Keshav Ling MD, FAC /INF
--- NOTE | 2019-06-14 16:12 | NUR ---
WOUND CARE NOTE: CONSULT RECEIVED FOR WOUNDS BLE PATIENT PRESENTS WITH WHAT APPEARS TO BE CELLULITIS TO BILATERAL LEGS. RED, HOT, EDEMATOUS GAITER AREAS. CLEANSED BILATERAL LEGS WITH SOAP AND WATER. APPLIED Z-GUARD TO REDDENED AREAS. 2-3+ EDEMA BILATERALLY. TO THE LEFT LEG AT THE ANTERIOR ASPECT OF THE TIBIA. WOUND MEASURES 4X1.8X0.2. MOIST, YELLOW, ADHERENT SLOUGH TISSUE. MORALES-WOUND IS MACERATED WITH REDNESS. APPLIED AQUACEL AG. COVERED WITH ABD. SECURED WITH KERLIX AND MARCIA. PATIENT ALSO HAS A FULL THICKNESS ULCERATION TO THE RIGHT GROIN. HYPERGRANULATION NOTED. MORALES-WOUND WITH FUNGAL RASH AND NEW EPITHELIUM. CLEANSED AREA. APPLIED OPTIFOAM AG. RECOMMEND TURN Q2 HOURS-KEEP ON PRASANNA MATTRESS ENCOURAGE GOOD NUTRITION/HYDRATION HUMERA'S ONCE MORE STABLE TO EVALUATE IF PATIENT COULD TOLERATE MORE COMPRESSION
[2019-06-14 18:52] LABS: CK-MB MASS 9.3 ng/mL (<0.5-3.6)
[2019-06-14 18:53] LABS: TROPONIN-I LEVEL 5.26 ng/mL (<0.06)
--- NOTE | 2019-06-14 20:32 | NUR ---
PATIENT RETURNED FROM RD SCIENTIST. REMAINS ON VENT BP STABLE. PROGRESSING.
[2019-06-15] VITALS (22 sets, daily range): BP systolic 110–193; BP diastolic 46–82
[2019-06-15 04:15] LABS: HEMATOCRIT 29.5 % (37.0-47.0); HEMOGLOBIN 9.2 gm/dL (12.0-15.0); MCH 26.9 pg (26.0-34.0); MCHC 31.2 g/dL (28.0-37.0); MCV 86.3 fL (80.0-100.0); MPV 7.6 fl. (7.2-11.1); RBC 3.41 mil/uL (4.20-5.00); RDW-CV 17.9 % (10.5-14.5); WBC 14.3 thou/uL (4.0-11.0)
[2019-06-15 04:32] LABS: INR 2.2; PROTIME 21.5 Seconds (9.20-11.50)
[2019-06-15 04:38] LABS: ALBUMIN 2.5 g/dL (3.4-5.0); CALCIUM 8.7 mg/dL (8.5-10.1); CREATININE 1.6 mg/dL (0.6-1.3); MAGNESIUM 2.4 mg/dL (1.8-2.4); POTASSIUM 3.7 mmol/L (3.5-5.1); TOTAL BILIRUBIN 0.3 mg/dL (<0.1-1.0)
[2019-06-15 04:50] LABS: CK-MB MASS 5.9 ng/mL (<0.5-3.6)
[2019-06-15 04:53] LABS: TROPONIN-I LEVEL 5.56 ng/mL (<0.06)
--- NOTE | 2019-06-15 05:44 | NUR ---
RECEIVED REPORT AND ASSUMED CARE AT 1900. VSS. ASSESSMENT COMPLETED CHARTED. MEDICATION ADMIN PER EMAR. POSITION CHANGED EVERY TWO HOURS, HEELS OFF LOADED. ROUNDING COMPLETED AND ALL NEEDS MET.
[2019-06-15 09:25] LABS: BE 9.1 mmol/L (-2 to +3); PO2 71.8 mmHg (75.0-100.0); pH 7.405 (7.340-7.450)
--- NOTE | 2019-06-15 10:46 | NUR ---
ICU rounds: Critical labs received. Cath yesterday, stent placed to LAD. Attempt to wean sedation today, once Pt is awake, RT to do a pressure support trial.
--- NOTE | 2019-06-15 10:50 | CON ---
[address] [address] CONSULTATION Name: PAULYBASILIO Brandon Room: [address] IN M.R.#: [id number] Admission: 06/13/19 Attend Phys: Jefferson Ware MD Discharge: Date of : 52 Report #: [id number] THIS REPORT FOR: //name// CC: Jefferson Mauricio DATE OF SERVICE: 06/14/2019 NEW PATIENT EVALUATION REASON FOR EVALUATION: COPD, obstructive sleep apnea per history, gniel-as-nxvyeoo respiratory failure. HISTORY OF PRESENT ILLNESS: The patient is a 68-year-old woman known to have severe COPD, on home oxygen, on home Trelegy, had recent hospitalization in October. At that time required AVAPS and had myocardial infarction as well with peak troponin of 17 at that time. This time, she came in with aucbn-ja-ymsabpi worsening of shortness of breath. 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 After admission, she required intubation. She had lactic acidosis, had elevated troponin with a troponin at this time around 6. With severity of respiratory distress, the patient was intubated, currently she is intubated and sedated on propofol, history was obtained from records, nurse and RT and staff. Apparently, we do not have significant secretion, had minimal 1 mucus plug this morning. Her airway pressure is adequate. A chest x-ray, which I have reviewed, showed left base infiltrate as well as pulmonary vascular congestion. Known to have hypercapnic respiratory failure. She has skin wounds as well, has past medical history of pulmonary embolism as well. She is on home Trelegy as above. Was admitted in October and was seen by our Pulmonary Team. PAST MEDICAL HISTORY: Significant for cellulitis, CHF, DVT, non-ST elevation SC, previous history of pneumonia, pulmonary embolism. Venous ulcers. COPD, on oxygen around 3 liters during daytime. ALLERGIES: FENTANYL. PAST SURGICAL HISTORY: Tonsillectomy, , leg surgery for chronic wounds. SOCIAL HISTORY: Ex-smoker, quit smoking. No alcohol. FAMILY HISTORY: No family history of pulmonary disease [place] [address] CONSULTATION Name: BASILIO COATS Room: [address] IN [facility]#: [id number] Admission: 06/13/19 Attend Phys: Jefferson Ware MD Discharge: Date of : 51 Report #: [id number] REVIEW OF SYSTEMS: Unobtainable other than reviewed by records, there is no history of fever, no significant mucus production. PHYSICAL EXAMINATION: GENERAL: On examination, the patient is sedated on propofol, not arousable, afebrile. VITAL SIGNS: Pulse is 78, respiratory rate 20, blood pressure 129/70, O2 saturation is 95%. HEAD AND NECK: Supple. Oral mucosa clear. No JVD. Eyes, nonicteric. CHEST: Clear to auscultation, equal breath sounds. ABDOMEN: Morbidly obese. EXTREMITIES: Edema. She has increased neck circumference. Otherwise unable to do psychiatry and neurology examination. LABORATORY AND OTHER DATABASE: Yesterday, her white blood cell count was 18,000, today is 10.7; hemoglobin 9.8 and stable. Platelets 398. Chemistry shows normal sodium and potassium. Her creatinine is 1.7, which is acute and yesterday it was 1.4. Troponin 6.8. Lactic acid was 1.3, yesterday it was 7.3. Chest x-ray, which I have reviewed yesterday had right mainstem intubation, which I discussed with the nurse and tube was retracted. Chest x-ray from today ET tube still is in better position, but would probably benefit from withdrawal of 2 cm as it is close to the kaushal with associated left lobe infiltrate, questionable atelectasis. ASSESSMENT AND PLAN: Ublpu-gh-ogxsjui respiratory failure. The patient is known to have hypercapnic respiratory failure related to chronic obstructive pulmonary disease, obstructive sleep apnea and obesity-hypoventilation. At this time, the patient is intubated, will keep sedated. The patient has myocardial infarction. We will wait until the patient is stabilized, have her cath before doing weaning of sedation and weaning of the ventilator. Per Cardiology, plan for cardiac catheterization today. At this time, continue nebulized treatment as well as steroids. Lkhrj-eh-iuuhqzf respiratory failure, chronic obstructive pulmonary disease exacerbation. Agree with steroid in this treatment, we will add antibiotics. Especially with lactic acidosis. Lactic acidosis, suspect related to hypoxemia. Differential diagnosis includes sepsis, hypoperfusion, especially with myocardial infarction. Cardiology following. Previous history of deep venous thrombosis, pulmonary embolism. Agree with anticoagulation. Prophylaxis. Recommend GI prophylaxis as well as she is on anticoagulation. [facility] [address] [facility] [place] [address] CONSULTATION Name: BASILIO COATS Room: [address] IN M.R.#: [id number] Admission: 06/13/19 Attend Phys: Jefferson Ware MD Discharge: Date of : 52 Report #: [id number] Tomorrow if not able to wean, recommend to start nutrition. This was discussed with her RT and nursing staff. Total critical care time with the patient's care was 40 minutes. <ELECTRONICALLY SIGNED> By: Theodore Munoz MD 06/15/19 1050 1122 0112Aamos Munoz MD /nt
[2019-06-15 11:26] LABS: PO2 77.7 mmHg (75.0-100.0); pH 7.362 (7.340-7.450)
[2019-06-15 11:34] LABS: PCO2 59.1 mmHg (35.0-45.0)
--- NOTE | 2019-06-15 12:26 | CON ---
[address] [address] CONSULTATION Name: PAULYBASILIO Brandon Room: [address] IN M.R.#: [id number] Admission: 06/13/19 Attend Phys: Jefferson Ware MD Discharge: Date of : 51 Report #: [id number] THIS REPORT FOR: //name// CC: Jefferson Mauricio DATE OF SERVICE: 06/14/2019 INFECTIOUS DISEASE CONSULTATION ATTENDING PHYSICIAN: Jefferson Ware MD. REASON FOR EVALUATION: Severe inflammatory eruption with ulceration involving the right inguinal site, in addition may have early sepsis. HISTORY OF PRESENT ILLNESS: Chart reviewed, patient examined. This is a 68-year-old, known to myself, has fairly significant medical history including COPD, morbid obesity, has cardiomyopathy as well, who presented with complaints of progressive dyspnea. She was scheduled to undergo outpatient visit with a barrel straightener. This led to extreme anxiety. Apparently, has an issue with leaving her house. Family describes possibility of a panic attack. She clinically deteriorated, ultimately needed intubation with mechanical ventilatory support. It is notable she has oxygen-requiring COPD. It is unclear if she had any fevers or chills. Appetite has been reasonable per family. No gastrointestinal-related complaints. She was found to have markedly elevated lactic acid of 7.3, lipase of 46. Initial CBC: White count of 18.1. Chest x-ray, no acute infiltrates, effusions, or pneumothoraces. Additional findings on exam, she has extensive inflammatory eruption involving her perineal area. It was consistent with candidiasis. She had an ulceration, suspected higx-qp-jsiy, due to a large pannus following the right inguinal site as well. She is empirically started on broad-spectrum therapy with linezolid, piperacillin, tazobactam, and fluconazole. She is nonresponsive at this point and maintained on the vent. ALLERGIES: TO FENTANYL. CURRENT MEDICATIONS: Include fluconazole, linezolid, Zosyn, aspirin, furosemide, insulin, pantoprazole, p.r.n. analgesics and antiemetics. PAST MEDICAL HISTORY: Above noted oxygen-requiring COPD, morbid obesity, history of DVT, chronic anemia, cardiomyopathy, history of congestive heart failure, previous section. She has venous stasis insufficiency, chronic ulcers of the lower extremities bilaterally, may be a component [place] [address] CONSULTATION Name: PAULYBASILIO MORAN Brandon Room: [address] IN [facility]#: [id number] Admission: 06/13/19 Attend Phys: Jefferson Ware MD Discharge: Date of : 51 Report #: [id number] SOCIAL HISTORY: Former smoker. No ethanol or illicit drug use. FAMILY HISTORY: Noncontributory. REVIEW OF SYSTEMS: Unobtainable. PHYSICAL EXAMINATION: GENERAL: She is not responsive, sedated and maintained on the vent via an endotracheal tube, does have a right-sided central venous catheter. VITAL SIGNS: Temperature is 97.7, pulse 78, respirations 19, blood pressure 129/71. HEENT: Normocephalic. NECK: Appears to be supple. SKIN: Warm and dry. HEART: Regular. I do not appreciate a murmur. LUNGS: Diminished breath sounds overall. ABDOMEN: Obese, large pannus. Inguinal site, in addition to lower extremities, proximal thighs, there is inflammatory eruption, some satellite lesions. There is a superficial ulceration involving the right inguinal site. This is all consistent with candidiasis. EXTREMITIES: Distal lower extremities have bilateral compressive dressings to below the knee. GENITOURINARY AND RECTAL: Deferred. LABORATORY DATA: Echo: LV size is normal; there is some hypertrophy, EF of 60%. Blood cultures are sterile thus far. Chest x-ray, no acute process. Electrolytes: Sodium 141, potassium 3.9, chloride 97, bicarbonate is 34, anion gap of 10, BUN and creatinine 37 and 1.7, glucose of 264. CBC: White count now 10.7, H and H 9.8 and 31.7, platelets of 398, is down from 576. Lactic acid, most recently is 1.3. ASSESSMENT: Multiorgan dysfunction. It is not entirely clear as to the etiology and cannot exclude early sepsis. At this point, she is maintaining her blood pressure, was very little reserve. Continue supportive therapy. I think antibacterials are reasonable. Secondly, has inflammatory eruption, certainly is suggestive of candidiasis. Discussed with the family. She takes sponge bath basically and it is not clear that she can even reach down there. We will continue InterDry. We will increase the fluconazole dose given her size. She remains quite tenuous at this point. We will pare down the therapy as well as try to wean off supports as allowed. Discussed with the family. <ELECTRONICALLY SIGNED> By: Anjel Kang MD 06/15/19 1226 1518 0316Anjel Kang MD /nt
--- NOTE | 2019-06-15 18:05 | EKG ---
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1950 Requested By: Kenny Nixon Order Number: [id number] Reading MD: Karlos Carl Measurements Intervals [place] Rate: 79 P: 71 SD: 113 QRS: -44 QRSD: 150 T: 164 QT: 402 QTc: 461 Interpretive Statements Sinus rhythm Borderline short SD interval Right bundle branch block LVH with IVCD and secondary repol abnrm Compared to ECG 06/13/2019 14:34:04 Ventricular premature complex(es) no longer present Short QT interval no longer present consider left anterior fascicular block Electronically Signed On 06-15-2019 18:05:04 CDT by Karlos Carl [email or web address] <ELECTRONICALLY SIGNED> By: Can Carl MD, [facility] 06/15/19 1805 0850 0850 Can Carl MD, [facility] /EPI
[2019-06-15 18:32] LABS: TROPONIN-I LEVEL 6.71 ng/mL (<0.06)
--- NOTE | 2019-06-15 18:41 | NUR ---
THIS CLOTH SHADER ASSUMED CARE OF PT AFTER RECEIVING REPORT AT 0700. pT PROGRESSED TOWARDS GOALS TODAY. WEINED OFF SEDATION AND EXTUBATED AT 1140, PT TOLERATED WELL PERFORMED BEDSIDE SWALLOW STUDY PT HAD NO ISSUES DURING SWALLOW STUDY ADVANCED TO DIET CONTROLLED CARB DIET.
[2019-06-16] VITALS (20 sets, daily range): BP systolic 112–157; BP diastolic 47–112
--- NOTE | 2019-06-16 05:50 | NUR ---
RECIEVED REPORT AND ASSUMED CARE AT 1900.VSS. MONITORING IN PLACE. PT DENIES COMPLAINTS OF PAIN. ASSESSMENT COMPLETED CHARTED. MEDICATION ADMIN PER EMAR. BED LOCKED IN LOWEST POSITION, CALL LIGHT WITHIN REACH. ROUNDING COMPLETED AND ALL NEEDS MET.
[2019-06-16 08:58] LABS: CALCIUM 8.4 mg/dL (8.5-10.1); CREATININE 1.7 mg/dL (0.6-1.3); POTASSIUM 3.8 mmol/L (3.5-5.1)
--- NOTE | 2019-06-16 10:29 | NUR ---
ICU rounds: Extubated yesterday. Continue IVABX and fluids. Wound care following. 6L o2 HF. Dtr discussed SNF with Pt yesterday, Pt will need encouragement to agree to skilled.
--- NOTE | 2019-06-16 15:36 | CARD ---
[address] [address] CARDIAC CATH REPORT Name: BASILIO COATS Room: [address] IN .R.#: [id number] Admission: 06/13/19 Attend Phys: Jefferson Ware MD Discharge: Date of : 51 Report #: [id number] THIS REPORT FOR: //name// APPROVED REPORT Study performed: 06/14/2019 15:56:50 Patient Details The patient is a 68 year-old female Event Personnel Kenny Nixon Surgical Tech, Jennifer Holland RN Civil Engineering Draftsperson, Jimmy JungIS Scrub, Maggie Jaffe RTR Monitor, Laura Thomas RN Monitor, Keshav Ling Want Ad Clerk Procedures Performed Art Access - R radial artery Left Heart Cath w/or w/o Coronaries [id number] [facility] w/wo Plasty Single LAD [id number] Hemostasis with Hemoband Admission/Lab Medications/Medications given during procedure Thrombin Inhibitors, Platelet Aff. Inhib., Effient PO 60 mg, Angiomax IV 22 ml, Angiomax Drip IV 50.4 ml per hr Procedure Narrative The patient was brought electively to the Cardiac Catheterization Laboratory and was prepped and draped in a sterile manner. The right wrist was infiltrated with 2% Lidocaine subcutaneous anesthesia. A Slender Glidesheath sheath was inserted into the right radial artery. Coronary angiography was performed using coronary diagnostic catheters. The right coronary system was accessed and visualized with a JR4 5fr catheter. The left coronary system was accessed and visualized with a JL4 6fr catheter. The left ventricle was accessed and visualized with a Angled Pig 6fr catheter. Closure device was deployed with a Fr vascband. The patient tolerated the procedure well and there were no complications associated with the procedure. There was no hematoma. Intraoperative Conscious Sedation Sedation start time: 1633 Case end Time: 1747 Propofol / Diprivan mg Fluoro Time: 24.1 minutes Dose: DAP [id number] cGycm2 4014 [place] [address] CARDIAC CATH REPORT Name: BASILIO COATS Brandon Room: [address] IN [facility].#: [id number] Admission: 06/13/19 Attend Phys: Jefferson Ware MD Discharge: Date of : 51 Report #: [id number] Contrast Type and Amount: Visipaque 360 ml Diagnostic Cath Left Main Normal. Long vessel prior to bifurcating into the LAD and circumflex. LAD Mildly plaqued calcified proximally. There is a 90% narrowing in the midportion just after the takeoff of a large first diagonal branch. The distal vessel is minimally plaqued. The distal LAD wraps around the apex. Diagonal 1 Large vessel that appears free of significant disease. Circumflex Minimally plaqued in the proximal origin. The circumflex complex is a large vessel that gives rise to 2 large obtuse marginal branches. OM1 Large in size mildly plaqued proximally without hemodynamically some stenoses. This is a large vessel. OM2 Moderate size vessel with no significant narrowing noted. Right Coronary Large vessel that is minimally plaqued in the proximal mid and distal portion. R PDA Free of significant disease. Hemodynamics The aortic pressure is 128/71 mmHg with a mean of 92 mmHg. The left ventricular pressure is 155/20 mmHg with a mean of mmHg. The left ventricular end diastolic pressure is 35 mmHg. PCI Technique Lesion Anticoagulation was achieved with Angiomax Drip. Patient was preloaded with Angiomax IV 22 ml. Percutaneous coronary intervention was performed on the mid left anterior descending artery segment. The lesion stenosis prior to intervention was 90% with NÉSTOR 3 flow. A 6FR LAUNCHER JL4.0 Guide Catheter was used to engage the left ostium. A IG: ProVokleFlex 180CM Interventional Guidewire was used to cross the lesion. BALLOON DILATION A Balloon catheter Trek RX 2.5 X 12 was inserted and inflated up to 12.00atm for 12seconds. Additional Inflation: 16.00atm for 11seconds. STENT DEPLOYMENT A drug-eluting stent Barrera 2.75 x 18 was inserted and inflated up to 12.00atm for 12seconds. Additional Inflation: 12.00atm for 10seconds. POST STENT DEPLOYMENT [place] [address] CARDIAC CATH REPORT Name: BASILIO COATS Room: [address] IN ..#: [id number] Admission: 06/13/19 Attend Phys: Jefferson Ware MD Discharge: Date of : 51 Report #: [id number] A Balloon catheter NC Trek RX 2.75 X 12 was inserted and inflated up to 16.00atm for 14seconds. Additional Inflation: 14.00atm for 7seconds. Final angiography reveals 10 % stenosis with NÉSTOR 3 flow. Conclusion 1. Critical 90% narrowing of the mid left anterior descending coronary artery. 2. Otherwise nonocclusive coronary artery disease as noted above. 3. Elevated left ventricular end-diastolic pressure consistent with acute diastolic heart failure. 4. Successful percutaneous coronary intervention with deployment of a drug-eluting stent at site of 90% mid LAD stenosis with 10% residual narrowing and NÉSTOR-3 flow the distal vessel Recommendations 1. Continue aggressive risk factor modification. 2. Percutaneous coronary intervention to the mid left anterior descending coronary artery. Medications Administered Aspirin (any) <ELECTRONICALLY SIGNED> By: Keshav Ling MD, [facility] 06/16/19 1536 1536 1536Keshav Ling MD, FACC /INF
--- NOTE | 2019-06-16 18:25 | NUR ---
PT IS A/O X4,VSS,TRACING SR WITH BBB ON THE MONITOR.PT REMAINS ON 6L O2 HF NC.SANABRIA SECURE AND PATENT.LEFT JUGULAR PATENT WITH IVF INFUSING PER ORDERS-DRESSING CHANGED THIS SHIFT DUE TO BLEEDING.RIGHT RADIAL CATH SITE BRUISED WITH SMALL HEMATOMA.BILATERAL LOWER EXTREMITIES DRESSINGS CHANGED.PT IS ANXIOUS BUT COOPERATIVE.NO C/O PAIN.PT LEFT RESTING IN BED WITH CALL LIGHT WITHIN REACH.WILL CONTINUE TO MONITOR FOR DURATION OF SHIFT.
[2019-06-16 18:26] LABS: CK-MB MASS 4.8 ng/mL (<0.5-3.6)
[2019-06-16 18:29] LABS: TROPONIN-I LEVEL 4.55 ng/mL (<0.06)
[2019-06-17 04:19] VITALS: BP 162/56
--- NOTE | 2019-06-17 05:01 | NUR ---
ASSUMED CARE AT 1910H, ON HIGH FLOW AT 6LPM AND TOLERATED. PUT ON BIPAP AND SLEPT WELL. NOTED CENTRAL LINE SITE AT LEFT JUGULAR BLEEDS, PRESSURE DRESSING APPLIED BUT STARTS TO BLEED WHEN SHE MOVES HER HEAD.CONTINUE MONITORING AND TOWARD GOALS.
[2019-06-17 10:34] VITALS: BP 131/72
[2019-06-17 12:45] VITALS: BP 154/52
--- NOTE | 2019-06-17 13:53 | NUR ---
PT TRANSFERED TO ROOM 204. REPORT GIVEN TO BELLE PEREIRA. ALL BELONGINGS THAT WERE IN THE PT ROOM WERE SENT TO ROOM 204 INCLUDING HOME TRILOGY.
[2019-06-17 15:37] VITALS: BP 153/47
--- NOTE | 2019-06-17 19:10 | NUR ---
PT TO UNIT AT APPROX 1400 FROM ICU. IJ DRESSING SATURATED MULTIPLE TIMES THIS SHIFT- DR. SUGGS AWARE AND ORDERS TO STOP LOVENOX AND RESTART HOME DOSE OF WARFARIN. VSS ON 6L NC. C/O ABD PAIN- MEDICATED PER EMAR. ELLY TO BEAU. NO CHANGES NOTED IN PREVIOUS NURSE ASSESSMENT. WILL CONT TO MONITOR
[2019-06-17 20:00] VITALS: BP 136/51
[2019-06-18] VITALS: BP 155/62
[2019-06-18 04:00] VITALS: BP 133/53
[2019-06-18 05:24] LABS: INR 1.4; PROTIME 13.9 Seconds (9.20-11.50)
--- NOTE | 2019-06-18 05:49 | NUR ---
ASSUMED CARE OF PT AFTER REPORT AT 1930. PT A&OX4. VSS. PHYSICAL ASSESSMENT COMPLETED AND CHARTED. PT ON O2 AT 6L/TRILOGY WHEN SLEEPING. PT COMPLAINED OF GENERALIZED BODY PAIN- MEDS GIVEN PER MAR. PT TURNED TO SIDES. PT WITH SANABRIA TO DEPENDENT DRAIN. CENTRAL LINE TO RIGHT IJ PATENT & INTACT BUT STILL LEAKING. CHANGE OF DRESSING DONE. PT ABLE TO SLEEP WELL ON BED. CALL LIGHT WITHIN REACH.
[2019-06-18 08:00] VITALS: BP 140/48
[2019-06-18 11:27] VITALS: BP 145/47
[2019-06-18 11:47] LABS: ALBUMIN 2.5 g/dL (3.4-5.0); CREATININE 1.6 mg/dL (0.6-1.3); POTASSIUM 3.8 mmol/L (3.5-5.1); TOTAL BILIRUBIN 0.3 mg/dL (<0.1-1.0); TOTAL PROTEIN 5.5 g/dL (6.4-8.2)
[2019-06-18 12:49] LABS: HEMOGLOBIN 7.3 gm/dL (12.0-15.0); MCH 26.8 pg (26.0-34.0); MCHC 30.4 g/dL (28.0-37.0); MCV 88.4 fL (80.0-100.0); MPV 7.5 fl. (7.2-11.1); NUCLEATED RBCS 0 /100WBC; PLATELET COUNT* 333 thou/uL (150-400); RBC 2.72 mil/uL (4.20-5.00); RDW-CV 18.2 % (10.5-14.5); WBC 15.6 thou/uL (4.0-11.0)
[2019-06-18 13:31] LABS: ABSOLUTE LYMPHOCYTES 1.4 thou/uL (0.8-5.3); ABSOLUTE MONOCYTES 0.5 thou/uL (0.0-1.2); ABSOLUTE NEUTROPHILS 13.7 thou/uL (1.6-8.1); ANISOCYTOSIS 1+; HYPOCHROMASIA 1+; PLATELET ESTIMATE ADEQUATE
--- NOTE | 2019-06-18 15:08 | NUR ---
CENTRAL LINE SITE CONTINUES TO OOZE. BLED THROUGH 3 ABD PADS AND WASH CLOTH. MANUAL PRESSURE APPLIED FOR 20 MIN. GEL FOAM AND ABD APPLIED. BLEEDING CONTROLLED AT THIS TIME. WILL CONTINUE TO MONITOR
[2019-06-18 15:25] VITALS: BP 177/63
--- NOTE | 2019-06-18 16:38 | NUR ---
PT RESTING IN BED THROUGHOUT SHIFT. PT REPOSITIONED FREQUENTLY. REPORTS GENERALIZED PAIN CONTROLLED WITH PO MEDS. POOR APPETITE. IVF INFUSING. NSR ON MONITOR
[2019-06-18 19:40] VITALS: BP 148/58
[2019-06-19] VITALS (43 sets, daily range): BP systolic 81–153; BP diastolic 48–71
--- NOTE | 2019-06-19 06:53 | NUR ---
PT CARE ASSUMED AT 1930. SAT MAINTAINED IN O2 AND TRILOGY. ALERT AND ORIENTED X4. CALL LIGHT WITHIN REACH AND BED IN LOW POSITION. DENIES PAIN AND SOB. HOURLY ROUNDING DONE FOR PT SAFETY.
--- NOTE | 2019-06-19 09:20 | NUR ---
INITAL ASSESMENT COMPLETED CHARTED. VSS. TRACING SR WITH BBB ON MONITOR. PT REFUSED TO GET UP TO CHAIR FOR BREAKFAST. PT CONTINUES ON 5 LPM VIA NC. SEE COMPUTER CHARTING FOR FURTHER DETAILS. HOURLY ROUNDING AND FALL PRECAUTIONS IN PLACE FOR PT SAFETY. CLWR.
--- NOTE | 2019-06-19 11:57 | NUR ---
Code danyel called, Pt transferred to ICU
[2019-06-19 12:11] LABS: BE 4.8 mmol/L (-2 to +3)
[2019-06-19 12:11] LABS: ABSOLUTE BASOPHILS 0.1 thou/uL (0.0-0.2); ABSOLUTE LYMPHOCYTES 0.5 thou/uL (0.8-5.3); ABSOLUTE MONOCYTES 0.5 thou/uL (0.0-1.2); ABSOLUTE NEUTROPHILS 15.3 thou/uL (1.6-8.1); BASOPHILS 0.4 %; EOSINOPHILS 0.1 %; HEMATOCRIT 22.2 % (37.0-47.0); MCH 26.3 pg (26.0-34.0); MCHC 30.1 g/dL (28.0-37.0); MCV 87.2 fL (80.0-100.0); MONOCYTES 2.9 %; MPV 7.6 fl. (7.2-11.1); NUCLEATED RBCS 0 /100WBC; PLATELET COUNT* 407 thou/uL (150-400); POLYS 93.6 %; RBC 2.55 mil/uL (4.20-5.00); RDW-CV 18.3 % (10.5-14.5); WBC 16.3 thou/uL (4.0-11.0)
[2019-06-19 12:15] LABS: HEMOGLOBIN 6.7 gm/dL (12.0-15.0)
[2019-06-19 12:16] LABS: PCO2 83.2 mmHg (35.0-45.0); PO2 26.8 mmHg (75.0-100.0); pH 7.222 (7.340-7.450)
--- NOTE | 2019-06-19 12:30 | NUR ---
CODE BLUE CALLED AT APPROXIMATELY 1100. SEE CODE BLUE SHEET.
[2019-06-19 12:41] LABS: ALBUMIN 2.2 g/dL (3.4-5.0); CALCIUM 8.3 mg/dL (8.5-10.1); CREATININE 1.8 mg/dL (0.6-1.3); POTASSIUM 4.5 mmol/L (3.5-5.1); TOTAL BILIRUBIN 0.5 mg/dL (<0.1-1.0); TOTAL PROTEIN 6.3 g/dL (6.4-8.2)
[2019-06-19 12:46] LABS: TROPONIN-I LEVEL 1.2 ng/mL (<0.06)
[2019-06-19 13:12] LABS: HEMATOCRIT 20.1 % (37.0-47.0); MCH 26.1 pg (26.0-34.0); MCHC 30.2 g/dL (28.0-37.0); MCV 86.5 fL (80.0-100.0); MPV 7.6 fl. (7.2-11.1); NUCLEATED RBCS 0 /100WBC; PLATELET COUNT* 339 thou/uL (150-400); RBC 2.32 mil/uL (4.20-5.00); RDW-CV 18.3 % (10.5-14.5); WBC 20.6 thou/uL (4.0-11.0)
[2019-06-19 13:15] LABS: HEMOGLOBIN 6.1 gm/dL (12.0-15.0)
[2019-06-19 13:54] LABS: ABSOLUTE LYMPHOCYTES 0.8 thou/uL (0.8-5.3); ABSOLUTE NEUTROPHILS 19.8 thou/uL (1.6-8.1)
[2019-06-19 13:56] LABS: HYPOCHROMASIA 1+; PLATELET ESTIMATE ADEQUATE
[2019-06-19 13:57] LABS: ANISOCYTOSIS 1+
[2019-06-19 14:10] LABS: BE 6.3 mmol/L (-2 to +3); PO2 87.9 mmHg (75.0-100.0); pH 7.307 (7.340-7.450)
[2019-06-19 14:13] LABS: PCO2 68.3 mmHg (35.0-45.0)
--- NOTE | 2019-06-19 16:30 | NUR ---
RIGHT INTRAJUGULAR VESSEL ACCESSED FOR J.A.C.C. (CENTRAL LINE CATHETER) PRIOR CHEST X-RAY REVIEWED NEGATIVE FOR PNEUMOTHORAX/HEMOTHORAX. GUIDE WIRE ADVANCED WITH NO RESISTANCE. MICROINTRODUCER CLEANLY CANNULATED VESSEL WITH NO ADVERSE EVENTS. LINE ADVANCED TO THE 20CM ALBERTO; GOOD BRISK BLOOD RETURN AND EASY FLUSHING FROM ALL THREE LUMEN APPRECIATED. POST PROCEDURE CXR SHOWS TIP TERMINATION AT THE CAVOATRIAL JUNCTION. INSERTION SITE DRESSED AND REPORT GIVEN TO MARCELINA ODONNELL.
--- NOTE | 2019-06-19 18:50 | NUR ---
RECEIVED PT FROM TELEMETRY POST CODE AT 1145. PT RESPONSIVE TO NAME AND TOUCH. BP INITIALLY HYPOTENSIVE WITH MAPS 60-63. RECEIVED ORDER FOR LEVOPHED AND PRIOR TO ADMININSTRATION BP ELEVATED TO SYSTOLIC BP >100 AND SUSTAINED. PT DID NOT REQUIRE PRESSURE SUPPORT THIS SHIFT. OG TUBE PLACED. RECEIVED ORDER FOR BLOOD TRANSFUSION. PER LAB, BLOOD WOULD TAKE "HOURS" PT POSITIVE FOR ANTIBIODIES. NOTIFIED AND MADE AWARE OF DELAY OF BLOOD TRANSFUSION. BLOOD TRANSFUSING PER PROTOCOL. SPOUSE AND DTR VISITED PT THIS SHIFT. PER CARDIOLOGY WARFAIN DC'D AT THIS TIME DUE TO LOW HEMOGLOBIN.
[2019-06-20] VITALS (24 sets, daily range): BP systolic 114–164; BP diastolic 42–72
[2019-06-20 01:36] LABS: ABSOLUTE LYMPHOCYTES 0.4 thou/uL (0.8-5.3); ABSOLUTE MONOCYTES 0.4 thou/uL (0.0-1.2); ABSOLUTE NEUTROPHILS 15.7 thou/uL (1.6-8.1); BASOPHILS 0.1 %; HEMATOCRIT 24.3 % (37.0-47.0); LYMPHOCYTES 2.6 %; MCH 27.9 pg (26.0-34.0); MCHC 32.9 g/dL (28.0-37.0); MCV 84.7 fL (80.0-100.0); MONOCYTES 2.4 %; MPV 7.8 fl. (7.2-11.1); NUCLEATED RBCS 0 /100WBC; PLATELET COUNT* 295 thou/uL (150-400); POLYS 94.9 %; RBC 2.87 mil/uL (4.20-5.00); RDW-CV 17.3 % (10.5-14.5); WBC 16.5 thou/uL (4.0-11.0)
[2019-06-20 03:10] LABS: CALCIUM 8.8 mg/dL (8.5-10.1); CREATININE 1.9 mg/dL (0.6-1.3); POTASSIUM 4.4 mmol/L (3.5-5.1)
[2019-06-20 03:20] LABS: PREALBUMIN 22.1 mg/dL (18.0-35.7)
--- NOTE | 2019-06-20 06:38 | NUR ---
RECEIVED REPORT AND ASSUMED CARE AT 1900. ICU MONIORING IN PLACE. PT INTUBATED/ SEDATED. NO APARENT PAIN. BED LOCKED IN LOWEST POSITION, POSITION CHANGED EVERY TWO HOURS, HEELS OFF LOADED. ROUNDING COMPLETED, ALL NEEDS MET.
[2019-06-20 08:19] LABS: pH 7.348 (7.340-7.450)
[2019-06-20 08:22] LABS: PCO2 58.9 mmHg (35.0-45.0)
[2019-06-20 14:02] LABS: ABSOLUTE LYMPHOCYTES 0.5 thou/uL (0.8-5.3); ABSOLUTE MONOCYTES 0.2 thou/uL (0.0-1.2); BASOPHILS 0.2 %; HEMATOCRIT 23.7 % (37.0-47.0); HEMOGLOBIN 7.7 gm/dL (12.0-15.0); LYMPHOCYTES 4.1 %; MCH 27.4 pg (26.0-34.0); MCHC 32.7 g/dL (28.0-37.0); MCV 83.9 fL (80.0-100.0); MONOCYTES 1.7 %; MPV 7.4 fl. (7.2-11.1); NUCLEATED RBCS 0 /100WBC; PLATELET COUNT* 287 thou/uL (150-400); RBC 2.83 mil/uL (4.20-5.00); RDW-CV 17.7 % (10.5-14.5); WBC 11.7 thou/uL (4.0-11.0)
[2019-06-20 15:08] LABS: PCO2 43.6 mmHg (35.0-45.0); pH 7.436 (7.340-7.450)
[2019-06-20 15:10] LABS: PO2 55.3 mmHg (75.0-100.0)
--- NOTE | 2019-06-20 15:15 | NUR ---
PATIENT REMAINS ON VENT RESPONDS TO VOICE. APPEARS COMFORTABLE.
--- NOTE | 2019-06-20 15:38 | NUR ---
ICU rounds: Pt nurse discussed pt has anxiety and panic attacks. No family present at this time; pt resting.
--- NOTE | 2019-06-20 17:19 | EKG ---
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: : 1950 Requested By: Rajesh Cuellar Order Number: [id number] Trinity MD: Kenny Nixon Measurements Intervals [place] Rate: 77 P: 66 [place]: 106 QRS: -39 QRSD: 142 T: 169 QT: 394 QTc: 446 Interpretive Statements Sinus rhythm Short [place] interval Right bundle branch block LVH with IVCD and secondary repol abnrm Compared to ECG 06/15/2019 08:50:46 No significant changes Electronically Signed On 06-20-2019 17:19:27 CDT by Kenny Nixon [email or web address] <ELECTRONICALLY SIGNED> By: Kenny Nixon MD, [facility] 06/20/19 1719 45 45 Kenny Nixon MD, [facility] /EPI
--- NOTE | 2019-06-20 17:24 | EKG ---
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: : 1950 Requested By: Rajesh Cuellar Order Number: [id number] Trinity MD: Kenny Nixon Measurements Intervals [place] Rate: 65 P: 58 [place]: 105 QRS: -31 QRSD: 150 T: 206 QT: 425 QTc: 442 Interpretive Statements Sinus rhythm Short [place] interval Right bundle branch block LVH with IVCD and secondary repol abnrm Compared to ECG 06/15/2019 08:50:46 No significant changes Electronically Signed On 06-20-2019 17:24:04 CDT by Kenny Nixon [email or web address] <ELECTRONICALLY SIGNED> By: Kenny Nixon MD, [facility] 06/20/19 1724 0853 0853 Kenny Nixon MD, [facility] /EPI
[2019-06-21] VITALS (47 sets, daily range): BP systolic 132–167; BP diastolic 42–68
[2019-06-21 05:36] LABS: MCH 28.2 pg (26.0-34.0); MCHC 33.4 g/dL (28.0-37.0); MCV 84.5 fL (80.0-100.0); MPV 7.5 fl. (7.2-11.1); RBC 2.84 mil/uL (4.20-5.00); RDW-CV 17.5 % (10.5-14.5)
[2019-06-21 05:39] LABS: pH 7.403 (7.340-7.450)
[2019-06-21 05:41] LABS: PCO2 53.4 mmHg (35.0-45.0)
[2019-06-21 05:56] LABS: ALBUMIN 2.2 g/dL (3.4-5.0); CALCIUM 8.6 mg/dL (8.5-10.1); CREATININE 2.1 mg/dL (0.6-1.3); MAGNESIUM 2.9 mg/dL (1.8-2.4); POTASSIUM 3.7 mmol/L (3.5-5.1); TOTAL BILIRUBIN 0.5 mg/dL (<0.1-1.0); TOTAL PROTEIN 5.9 g/dL (6.4-8.2)
--- NOTE | 2019-06-21 06:16 | NUR ---
RECIEVED REPORT AND ASSUMED CARE AT 1900. VSS. MONITORING IN PLACE. ASSESSMENT COMPLETED CHARTED.POSITION CHANGED EVERY TWO HOURS, ROUNDING COMPLETED AND ALL NEEDS MET. MEDICATION PER EMAR
--- NOTE | 2019-06-21 10:21 | NUR ---
Nutrition: Consult for TF goals. Recommend Glucerna 1.2 @ goal rate 60mL/hr. Water boluses: 175mL QID. See RD Reassessment form for details.
--- NOTE | 2019-06-21 10:37 | NUR ---
ICU rounds: Pt remains intubated/sedated. Awaiting SBT today. Pt nurse explained possible anxiety issues remain. SW/CM to remain available to assist with safe dc planning/support.
[2019-06-22] VITALS (40 sets, daily range): BP systolic 111–192; BP diastolic 39–81
[2019-06-22 05:37] LABS: HEMATOCRIT 25.8 % (37.0-47.0); HEMOGLOBIN 8.6 gm/dL (12.0-15.0); MCH 28.6 pg (26.0-34.0); MCHC 33.5 g/dL (28.0-37.0); MCV 85.4 fL (80.0-100.0); MPV 7.9 fl. (7.2-11.1); RBC 3.02 mil/uL (4.20-5.00); RDW-CV 17.5 % (10.5-14.5); WBC 8.8 thou/uL (4.0-11.0)
--- NOTE | 2019-06-22 05:50 | NUR ---
PT. PROGRESSING TOWARDS GOALS. TTT IN PROGRESS AT THIS TIME, TOLERATING WELL. SANABRIA CATHETER REPLACED DUE TO LEAKAGE. 18 ARMENIAN PLACED WITHOUT DIFFICULTY, DRAINAING WELL. REMAINS ON VENTILATOR WITH BILAT SOFT WRIST RESTRAINTS IN PLACE. COMPLETE BED BATH GIVEN. SINUS LENORE. BP'S WITHIN NORMAL LIMITS. WILL CONTINUE TO MONITOR.
[2019-06-22 05:53] LABS: ALBUMIN 2.3 g/dL (3.4-5.0); CALCIUM 8.3 mg/dL (8.5-10.1); CREATININE 2.2 mg/dL (0.6-1.3); POTASSIUM 3.3 mmol/L (3.5-5.1); TOTAL BILIRUBIN 0.6 mg/dL (<0.1-1.0); TOTAL PROTEIN 6.2 g/dL (6.4-8.2)
[2019-06-22 06:25] LABS: BE 1.1 mmol/L (-2 to +3); PCO2 45.9 mmHg (35.0-45.0); PO2 95.7 mmHg (75.0-100.0)
--- NOTE | 2019-06-22 10:48 | NUR ---
ICU rounds: No new concerns or questions from pt family. Possible trial extubate tomorrow? SW/CM to remain available to assist with safe dc planning/support as needed.
[2019-06-22 13:35] LABS: BE 2.4 mmol/L (-2 to +3); PCO2 48.1 mmHg (35.0-45.0); PO2 85.7 mmHg (75.0-100.0); pH 7.383 (7.340-7.450)
--- NOTE | 2019-06-22 16:36 | NUR ---
PT PROGRESSING TOWARDS GOALS THIS SHIFT. PT COMPLETED TWO WEANING TRIALS TODAY WITH ADEQUATE BLOOD GASES AND VITALS THROUGHOUT. ORDERED TO EXTUBATE FROM FRAME STYLIST. PT PLACED ON HEATED HIGH FLOW NC AT 40 FI02 AND TOLERATING WELL. PT REMAINS NPO AT THIS TIME. PT GIVEN ONE DOSE OF IVP ATIVAN FOR ANXIETY. FAMILY AT BEDSIDE. NO OTHER CONCERNS AT THIS TIME. CLWR. WCTM.
[2019-06-23] VITALS (19 sets, daily range): BP systolic 103–150; BP diastolic 61–86
[2019-06-23 04:37] LABS: HEMATOCRIT 29.2 % (37.0-47.0); MCH 26.6 pg (26.0-34.0); MCHC 30.8 g/dL (28.0-37.0); MCV 86.3 fL (80.0-100.0); MPV 7.5 fl. (7.2-11.1); RBC 3.39 mil/uL (4.20-5.00); RDW-CV 17.6 % (10.5-14.5); WBC 13.2 thou/uL (4.0-11.0)
[2019-06-23 04:55] LABS: ALBUMIN 2.6 g/dL (3.4-5.0); CALCIUM 8.7 mg/dL (8.5-10.1); CREATININE 1.8 mg/dL (0.6-1.3); MAGNESIUM 3.1 mg/dL (1.8-2.4); POTASSIUM 3.7 mmol/L (3.5-5.1); TOTAL BILIRUBIN 0.6 mg/dL (<0.1-1.0); TOTAL PROTEIN 6.6 g/dL (6.4-8.2)
--- NOTE | 2019-06-23 05:10 | NUR ---
ASSUMED CARE AT 1910H,ON HIGHFLOW AT 40% AND TOLERATED THE WHOLE NIGHT.PT SOMETIMES ANXIOUS, 3X LORAZEPAM IV GIVEN.NO RESPIRATORY DISTRESS NOTED.BEDSIDE SWALLOW TEST DONE AND PT TOLERATED WATER. NO CHEST PAIN.KEEP MONITORING AND TOWARDS GOAL.
--- NOTE | 2019-06-23 10:29 | NUR ---
PARTICIPATED IN TEAM ROUNDS. NOW EXTUBATED & ON HIGH FLOW. PT/OT TO SEE PT TODAY
--- NOTE | 2019-06-23 14:48 | NUR ---
ICU rounds: Pt weaned from vent last night and recommended to be able to transfer to tele after 2 pm if stable. PT/OT reordered for pt.
--- NOTE | 2019-06-23 15:49 | NUR ---
WOUND CARE NOTE: REASSESSMENT OF BILATERAL LEG WOUNDS AND RIGHT GROIN. RIGHT LEG HAS SIGNIFICANTLY IMPROVED. GAITER AREA NO LONGER RED, EDEMATOUS, AND DENUDED. CLEANSED WITH SOAP AND WATER, APPLIED LOTION. APPLIED DOUBLE LAYER TUBIGRIP. LEFT LEG: SIGNIFICANTLY IMPROVED. GAITER AREA REMAINS REDDENED, BUT NO LONGER DENUDED. EDEMA IS IMPROVED. ULCERATION TO THE ANTERIOR ASPECT NOW MEASURES 5X1X0.1. MOIST, PALE WOUND BED. CLEANSED ENTIRE LEG WITH SOAP AND WATER, PATTED DRY. APPLIED OPTIFOAM AG OVER ULCERATION AND SECURED WITH A DOUBLE LAYER TUBIGRIP. RIGHT GROIN: SIGNIFICANTLY IMPROVED. MOIST, RED, GRANULAR WOUND BED. WOUND MEASURES 4X1.8X0.2. APPEARS THAT MORALES-WOUND RASH IS RESOLVING. CLEANSED AND THEN APPLIED OPTIFOAM AG. WOUNDS ARE MAKING SIGNIFICANT PROGRESS. RECOMMEND TUBIGRIP-REMOVE, PERFORM CARES, THEN REAPPLY ENCOURAGE GOOD NUTRITION/HYDRATION
--- NOTE | 2019-06-23 17:56 | NUR ---
PATIENT SOMEWAHT PROGRESSING WELL TOWARDS GOALS. APPETITE INCREASING AND TOLERATING FULL LIQUIDS THROUGHOUT DAY. PATIENT WEARING HOME CPAP 1 HOUR BETWEEN MEALS AND WHEN SLEEPING AND TOLERATING MORE. MORE AWAKE BY END OF SHIFT COMPARED TO BEGINNING OF SHIFT. PATIENT HAS NOT REALLY BEEN ANXIOUS THROUGHOUT SHIFT, NO ATIVAN GIVEN THIS SHIFT. BATH COMPLETED, WOUNDS CHANGED. BED IN LOWEST POSITION. CONTINUE TO MONITOR.
[2019-06-24] VITALS (11 sets, daily range): BP systolic 123–157; BP diastolic 62–123
[2019-06-24 04:30] LABS: HEMATOCRIT 26.9 % (37.0-47.0); HEMOGLOBIN 8.6 gm/dL (12.0-15.0); MCH 27.3 pg (26.0-34.0); MCHC 31.8 g/dL (28.0-37.0); MCV 85.7 fL (80.0-100.0); MPV 7.3 fl. (7.2-11.1); RBC 3.14 mil/uL (4.20-5.00); RDW-CV 17.2 % (10.5-14.5); WBC 11.5 thou/uL (4.0-11.0)
--- NOTE | 2019-06-24 04:43 | NUR ---
ASSUMED CARE AT 1910H, PT ON CPAP AT 50% AND KEPT THE WHOLE NIGHT.PT SAT'S AT 91% WHEN SHE WAS SLEEPING AND BACK TO 96% WHWN AWAKE.NOTED PT WAS A SHALLOW BREATHER WHEN ON CPAP AND SLEEPING.CONTINUE MONITORING AND TOWARDS GOAL.
[2019-06-24 04:44] LABS: ALBUMIN 2.4 g/dL (3.4-5.0); CALCIUM 8.6 mg/dL (8.5-10.1); CREATININE 1.6 mg/dL (0.6-1.3); POTASSIUM 3.5 mmol/L (3.5-5.1); TOTAL BILIRUBIN 0.5 mg/dL (<0.1-1.0); TOTAL PROTEIN 6.1 g/dL (6.4-8.2)
[2019-06-24 06:35] LABS: BE 5.6 mmol/L (-2 to +3); PO2 70.1 mmHg (75.0-100.0); pH 7.396 (7.340-7.450)
[2019-06-24 06:39] LABS: PCO2 52.7 mmHg (35.0-45.0)
--- NOTE | 2019-06-24 16:13 | NUR ---
ASSUMED CARE OF PT AROUND 0730 THIS AM. REFER TO ASSESSMENT. PT DOWNGRADED TO TELE STATUS TODAY. ADVANCED TO LOW SODIUM DIET AND IS TOLERATING WELL. PAIN MANAGED WITH FREQUENT REPOSITIONING, DISTRACTION, AND PRN TRAMADOL. PT TOLERATED HEATED HIGH FLOW NC AND REMAINED ALERT THROUGHOUT SHIFT. PT TO WEAR CPAP WHILE SLEEPING. AT BEDSIDE. ENCOURAGED ORAL INTAKE AND PT COMPLIANT. NO OTHER CONCERNS AT THIS TIME. CLWR. WCTM.
[2019-06-25 00:01] VITALS: BP 119/63
[2019-06-25 04:00] VITALS: BP 120/60
[2019-06-25 04:02] LABS: HEMATOCRIT 28.4 % (37.0-47.0); MCH 27.1 pg (26.0-34.0); MCHC 31.6 g/dL (28.0-37.0); MCV 85.7 fL (80.0-100.0); MPV 7.2 fl. (7.2-11.1); RBC 3.31 mil/uL (4.20-5.00); RDW-CV 17.2 % (10.5-14.5); WBC 13.9 thou/uL (4.0-11.0)
[2019-06-25 04:17] LABS: ALBUMIN 2.3 g/dL (3.4-5.0); CALCIUM 8.5 mg/dL (8.5-10.1); CREATININE 1.3 mg/dL (0.6-1.3); MAGNESIUM 2.7 mg/dL (1.8-2.4); POTASSIUM 3.8 mmol/L (3.5-5.1); TOTAL BILIRUBIN 0.7 mg/dL (<0.1-1.0); TOTAL PROTEIN 5.9 g/dL (6.4-8.2)
--- NOTE | 2019-06-25 05:45 | NUR ---
ASSUMED CARE AT 1915H, ON HIGHFLOW AT 40% AND CHANGE TO CPAP AND WELL TOLERATED.NO RESPIRATORY DISTRESS AND PANIC ATTACK NOTED.BRUISING INCREASED NOTED IN ABDOMEN AND ARMS.CONTINUE MONITORING AND TOWARDS GOAL.
[2019-06-25 08:01] VITALS: BP 138/77
--- NOTE | 2019-06-25 16:07 | NUR ---
ASSUMED CARE OF PT AROUND 0700 THIS AM. REFER TO ASSESSMENT. PT OOB WITH KAMINI LIFT AND ASSIST X2 TO CHAIR. PT TOLERATED BEING UP IN CHAIR FOR ABOUT SIX HOURS. ABLE TO TITRATE OXYGEN TO 35% FIO2 AND 35 LITERS WITH HEATED HIGH FLOW. PT WEARS TRILOGY WHILE SLEEPING. TOLERATING DIET. NO OTHER CONCERNS AT THIS TIME. CLWR. WCTM.
[2019-06-26 03:58] LABS: HEMATOCRIT 27.6 % (37.0-47.0); HEMOGLOBIN 8.7 gm/dL (12.0-15.0); MCHC 31.4 g/dL (28.0-37.0); MCV 85.8 fL (80.0-100.0); MPV 7.2 fl. (7.2-11.1); RBC 3.22 mil/uL (4.20-5.00); RDW-CV 17.6 % (10.5-14.5); WBC 15.4 thou/uL (4.0-11.0)
[2019-06-26 04:14] LABS: ALBUMIN 2.3 g/dL (3.4-5.0); CALCIUM 8.4 mg/dL (8.5-10.1); CREATININE 1.3 mg/dL (0.6-1.3); MAGNESIUM 2.4 mg/dL (1.8-2.4); POTASSIUM 3.8 mmol/L (3.5-5.1); TOTAL BILIRUBIN 0.6 mg/dL (<0.1-1.0); TOTAL PROTEIN 5.9 g/dL (6.4-8.2)
--- NOTE | 2019-06-26 06:49 | NUR ---
ASSESSMENT CHARTED. PATIENT SLEPT FOR THE SHIFT, TURNS Q2H ON JOJO BED. VSS. LABWORK STABLE. NO SIGNIFICANT EVENTS DURING SHIFT.
[2019-06-26 08:29] VITALS: BP 125/70
[2019-06-26 12:55] VITALS: BP 137/68
--- NOTE | 2019-06-26 14:14 | NUR ---
REHAB CONSULT ORDERED AND PENDING THERPY ASSESSMENT AND DECISION. TRANSFER TO TELE BED 06/26. PATIENT'S HOME TRILOGY HERE FOR BEDSIDE USE PER ASSIGNED UNIT RN. PLAN: PENDING REHAB EVAL AND DECISION.
[2019-06-26 16:34] VITALS: BP 124/49
--- NOTE | 2019-06-26 17:28 | NUR ---
PATIENT PROGRESSING WELL TOWARDS GOALS THIS SHIFT. UP IN CHAIR FOR DINNER WITH KAMINI. TOLERATING WELL. VITALS STABLE THROUGHOUT SHIFT. NO PAIN, NAUSEA OR SHORTNESS OF BREATH AT THIS TIME. AT BEDSIDE HELPING THROUGHOUT CARE. ALL QUESTIONS ANSWERED. PATIENT REMAINS TELE STATUS. BED IN LOWEST POSITION, CALL LIGHT IN REACH, ENGRAVING SUPERVISOR IN PLACE.
[2019-06-26 21:02] VITALS: BP 135/72
[2019-06-27] VITALS: BP 120/57
[2019-06-27 04:00] VITALS: BP 128/54
[2019-06-27 07:50] VITALS: BP 106/65
--- NOTE | 2019-06-27 10:30 | NUR ---
SPOKE WITH [facility] AFTER THEY WORKED WITH PATIENT. PATIENT SITTING UP IN THE CHAIR. REHAB EVAL PENDING. WILL NEED TO SEE HOW PATIENT DOES WITH THERAPIES, HOW MOTIVATED SHE IS TO PARTICIPATE. PT IS FROM HOME, HAD NOT LEFT THE HOUSE FOR MONTHS. PT HAS A HISTORY OF ANXIETY WHICH MAY IMPACT HER RECOVERY ALSO. CASE MGT WILL CONTINUE TO FOLLOW.
[2019-06-27 12:00] VITALS: BP 116/78
--- NOTE | 2019-06-27 15:07 | NUR ---
REPORT GIVEN TO BELLE MEAD, ALL BELONGINGS TRANSFERRED WITH PT INCLUDING TRILOGY, AND MEDICATIONS, GLASSES AND CELL PHONE, HAS CELL PHONE REAL ESTATE MANAGEMENT SPECIALIST, PT ALERT AND ORIENTED, ALL ORDERS AND PAIN MEDS GIVEN REPORTED TO BELLE MEAD.
--- NOTE | 2019-06-27 15:33 | NUR ---
VSS, ASSUMED CARE OF PT FROM ICU I AGREE WITH ICU FINDINGS AND CHARTINGS, WILL FOLLOW WITH PLAN OF CARE.
[2019-06-27 17:05] VITALS: BP 153/56
[2019-06-27 20:00] VITALS: BP 102/60; BP 119/67
[2019-06-28] VITALS: BP 110/50
[2019-06-28 04:00] VITALS: BP 167/61
[2019-06-28 04:54] LABS: HEMATOCRIT 26.1 % (37.0-47.0); HEMOGLOBIN 8.3 gm/dL (12.0-15.0); MCH 27.4 pg (26.0-34.0); MCHC 31.8 g/dL (28.0-37.0); MCV 86.3 fL (80.0-100.0); MPV 6.8 fl. (7.2-11.1); RBC 3.03 mil/uL (4.20-5.00); RDW-CV 17.6 % (10.5-14.5); WBC 15.2 thou/uL (4.0-11.0)
[2019-06-28 05:09] LABS: ALBUMIN 2.1 g/dL (3.4-5.0); CALCIUM 8.6 mg/dL (8.5-10.1); POTASSIUM 3.5 mmol/L (3.5-5.1); TOTAL BILIRUBIN 0.7 mg/dL (<0.1-1.0); TOTAL PROTEIN 5.6 g/dL (6.4-8.2)
--- NOTE | 2019-06-28 05:56 | NUR ---
ASSUMED PT CARE AT 1930. NURSING ASSESSMENT COMPLETED AT START OF SHIFT. SR ON BAKER HELPER. PT VOICED NO CONCERNS THIS SHIFT. Q2H REPOSITIONING COMPLETED. CONTINUES ON 4L NC. TRILOGY HS. NEGATIVE SEPSIS SCREENING THIS SHIFT. CALL LIGHT WITHIN REACH.
--- NOTE | 2019-06-28 07:25 | NUR ---
CHANGE OF SHIFT, BEDSIDE REPIORT GIVEN PATIENT SEEN AT BEDSIDE, IN BED ASLEEP ASSUMED PATIENT CARE
[2019-06-28 08:00] VITALS: BP 104/60
[2019-06-28 12:00] VITALS: BP 135/75
[2019-06-28 16:00] VITALS: BP 97/80
[2019-06-28 20:00] VITALS: BP 128/66
[2019-06-29] VITALS: BP 106/48
[2019-06-29 04:00] VITALS: BP 112/61
--- NOTE | 2019-06-29 06:19 | NUR ---
ASSUMED PATIENT CARE AT 1900. BOILER FIREMAN COMPLETED CHARTED. NO QUESTIONS OR CONCERNS AT THIS TIME. MINOR COMPLAINTS OF PAIN THROUGH THE NIGHT, CONTROLLED WITH ORAL MEDICATION
--- NOTE | 2019-06-29 07:12 | NUR ---
CHANGE OF SHIFT, BEDSIDE REPORT GIVEN PATIENT SEEN AT BEDSIDE, IN BED RESTING ASSUMED PATIENT CARE
[2019-06-29 08:00] VITALS: BP 144/75
[2019-06-29 11:43] VITALS: BP 131/72
[2019-06-29 12:11] LABS: HEMATOCRIT 25.3 % (37.0-47.0); HEMOGLOBIN 7.8 gm/dL (12.0-15.0); MCH 27.1 pg (26.0-34.0); MCHC 30.8 g/dL (28.0-37.0); MCV 88.2 fL (80.0-100.0); MPV 7.9 fl. (7.2-11.1); RBC 2.87 mil/uL (4.20-5.00); RDW-CV 18.5 % (10.5-14.5); WBC 12.6 thou/uL (4.0-11.0)
--- NOTE | 2019-06-29 13:04 | NUR ---
Spoke with , anticipate that Pt is getting close to dc, updated rehabilitation teacher.
[2019-06-29 16:23] VITALS: BP 96/51
[2019-06-29 21:13] VITALS: BP 169/66
[2019-06-30] VITALS: BP 106/55
[2019-06-30 04:00] VITALS: BP 95/57
[2019-06-30 04:38] LABS: HEMATOCRIT 24.7 % (37.0-47.0); HEMOGLOBIN 7.7 gm/dL (12.0-15.0); MCH 27.5 pg (26.0-34.0); MCHC 31.2 g/dL (28.0-37.0); RBC 2.81 mil/uL (4.20-5.00); RDW-CV 18.7 % (10.5-14.5); WBC 14.3 thou/uL (4.0-11.0)
[2019-06-30 04:50] LABS: CALCIUM 8.7 mg/dL (8.5-10.1); MAGNESIUM 1.9 mg/dL (1.8-2.4); POTASSIUM 3.4 mmol/L (3.5-5.1)
[2019-06-30 07:31] VITALS: BP 154/56
--- NOTE | 2019-06-30 07:42 | NUR ---
INITAL ASSESSMENT COMPLETED CHARTED. VSS. TRACING SR WITH BBB ON MONITOR. PT DENIES PAIN, SOA, CP, N/V/D AT THIS TIME. PT DENIES ANY FURTHER NEEDS AT THIS TIME. HOURLY ROUNDING AND FALL PRECAUTIONS IN PLACE FOR PT SAFETY. Q2 TURNS TO MAINTAIN SKIN INTEGRITY. CLWR.
--- NOTE | 2019-06-30 08:29 | NUR ---
PT IS ABLE TO COMMUNICATE HER NEEDS TO STAFF EFFECTIVELY. CURRENT PAIN MEDICATION REGIMEN HAS BEEN ADEQUATE FOR CONTROLLING HER PAIN UP TO 0700 THIS MORNING. ELLY IS PATENT. PT WEARING HOME TRILOGY WHILE SLEEPING; TOLERATED WELL.
[2019-06-30] MEDS ORDERED: EFFIENT10 MG PO (11:15)
[2019-06-30] MEDS ORDERED: COLACE100 MG PO (11:16)
[2019-06-30] MEDS ORDERED: TRAMADOL 50 MG50 MG PO (11:17)
[2019-06-30] MEDS ORDERED: IPRATROPIU0.2 MG/1 M INH (11:47)
[2019-06-30] MEDS ORDERED: GLUTOSE GEL 1515 G1 PO (11:49)
[2019-06-30] MEDS ORDERED: GLUCAGON HCL1 MG IM (11:49)
[2019-06-30] MEDS ORDERED: GLUCOSE4 GM PO (11:51)
[2019-06-30] MEDS ORDERED: PROTONIX40 M2 PO (11:53)
[2019-06-30] MEDS ORDERED: LEVALBUTER1.25 MG/0. INH (11:56)
[2019-06-30 12:00] VITALS: BP 125/53
--- NOTE | 2019-06-30 12:48 | NUR ---
Dc orders written for Pt to dc to acute rehab. CM went in post Pt's discusstion with , Pt now stating that she wants to dc to Skilled at [facility]. Dtr in room. health outcomes liaison down to provide information on acute rehab. Per dtr they need to discuss as a family. CM contacted [facility], they may have beds later today and tomorrow, faxed referral they will review and let CM know if they are able to accept Pt for skilled. If Pt decides that she wants to dc to acute rehab, they can accept Pt on Wednesday or Wednesday. Updated Dr and nurse.
[2019-06-30 16:26] VITALS: BP 121/48
[2019-07-01] VITALS: BP 128/52
--- NOTE | 2019-07-01 02:40 | NUR ---
PT ALERT ORIENTED. UP TO BSC WITH ONE PERSON ASSIST. TELEMETRY SHOWS SR BBB. O2 AT 4 LITERS. ON TRILOGY CPAP HS. REFUSING TO TURN AT 2200 AND MN.
[2019-07-01 04:00] VITALS: BP 98/58
[2019-07-01 07:00] VITALS: BP 152/52
--- NOTE | 2019-07-01 07:54 | NUR ---
INITAL ASSESSMENT COMPLETED CHARTED. TRACING SR WITH BBB ON MONITOR. PT C/O CHRONIC GENERALIZED PAIN. PT SONTINUES TO REFUSE TURNS, EDUCATED ON IMPORTANCE OF MAINTAINING SKIN INTEGRITY, VERBALIZES UNDERSTANDING. PT CARLOS ANY FURTHER NEEDS AT THIS TIME. HOURLY ROUNDING AND FALL PRECAUTIONS IN PLACE FOR PT SAFETY. CLWR.
--- NOTE | 2019-07-01 10:56 | NUR ---
PT CHANGED TO M/S STATUS PER
--- NOTE | 2019-07-01 13:31 | NUR ---
MET WITH PT, SHE HAS DECIDED TO GO TO IN REHAB. MESSAGE TO [facility] TO SEE ABOUT PT DCING THERE ON WEDNESDAY
[2019-07-01 15:32] VITALS: BP 101/57
[2019-07-01 20:00] VITALS: BP 129/60
[2019-07-02 04:00] VITALS: BP 161/57
[2019-07-02 04:44] LABS: HEMATOCRIT 23.4 % (37.0-47.0); HEMOGLOBIN 7.3 gm/dL (12.0-15.0); MCH 27.4 pg (26.0-34.0); MCV 88.5 fL (80.0-100.0); MPV 7.9 fl. (7.2-11.1); RBC 2.65 mil/uL (4.20-5.00); RDW-CV 20.2 % (10.5-14.5); WBC 9.2 thou/uL (4.0-11.0)
[2019-07-02 04:54] LABS: CALCIUM 8.7 mg/dL (8.5-10.1); CREATININE 1.1 mg/dL (0.6-1.3); MAGNESIUM 1.7 mg/dL (1.8-2.4); POTASSIUM 3.1 mmol/L (3.5-5.1)
--- NOTE | 2019-07-02 05:11 | NUR ---
ASSUMED PT CARE AT APPROX 1930. PT IS AWAKE AND ORIENTED X4. VSS ON 4L OF O2/NC. ASSESSMENT DONE AND CHARTED. PT USES HOME TRILOGY AT HS. POSITION CHANGES DONE, PT REFUSED SOME TURNS, EDUCATION GIVEN. PT DENIES PAIN THIS SHIFT. CALL LIGHT WITHIN REACH. HOURLY ROUNDING DONE FOR PT SAFETY.
[2019-07-02 07:05] VITALS: BP 153/51
--- NOTE | 2019-07-02 10:52 | NUR ---
INITAL ASSESSMENT COMPLETED CHARTED. VSS. PT C/O CHRONIC PAIN. COMPLETE BED BATH GIVEN, WOUND DRESSINGS CHANGED, PICTURES TAKEN. MEDS GIVEN PER EMAR. HOURLY ROUNDING AND FALL PRECAUTIONS IN PLACE FOR PT SAFETY. CLWR.
[2019-07-02 12:17] VITALS: BP 102/46
[2019-07-02 20:00] VITALS: BP 138/52
[2019-07-03 04:00] VITALS: BP 145/50
--- NOTE | 2019-07-03 05:35 | NUR ---
ASSUMED PT CARE AT APPROX 1930. PT IS AWAKE AND ORIENTED X4. VSS ON 3L OF O2/NC. ASSESSMENT DONE AND CHARTED. PT REFUSED SOME TURNS, PT REMINDED OF THE IMPORTANCE OF REPOSITIONING. PT IS ABLE TO SLEEP MOST OF THE NIGHT WITH TRILOGY ON. CALL LIGHT WITHIN REACH. HOURLY ROUNDING DONE FOR PT SAFETY.
[2019-07-03 05:46] LABS: MAGNESIUM 1.7 mg/dL (1.8-2.4); POTASSIUM 3.8 mmol/L (3.5-5.1)
[2019-07-03 07:46] VITALS: BP 156/61
--- NOTE | 2019-07-03 09:20 | NUR ---
ASSUMED CARE AFTER REPORT APPROX 0730. A&OX4, ABLE TO EXPRESS NEEDS TO STAFF. MED/SURG STATUS. NO C/O PAIN, N/V, SOA OR OTHER DISTRESS. LIFT DEVICE TRANSFERS. CALL LIGHT WITHIN REACH. HOURLY ROUNDING FOR SAFETY AND PATIENT NEEDS.
[2019-07-03 12:00] VITALS: BP 108/50
--- NOTE | 2019-07-03 13:29 | NUR ---
Pt discharging to acute rehab today to room 321. CM faxed orders and updated Pt.
[2019-07-03] MEDS ORDERED: NYSTATIN 100,0015 G1 TOP (15:01)
[2019-07-03] MEDS ORDERED: SENOKOT-S1 TA2 PO (15:03)
--- NOTE | 2019-07-03 15:56 | NUR ---
REPORT GIVEN TO RIP FLOWER ARRANGER. PATIENT BELONGINGS MOVED FROM ROOM 205 TO ROOM 320. TRILOGY MOVED. WALKER MOVED. PATIENT TRANSPORTED VIA BED, O2 AND 2 STAFF MEMBERS. CHART AND ONE VIAL OF INSULIN FROM PATIENT ACCESS BIN. PATIENT'S SPOUSE ACCOMPANIED PATIENT & STAFF TO REHAB UNIT.
== END 2019-07-03 15:59 | DRG 853 ==
LOC: M.ERS 14:22 → M.TBA-ER 15:52 → M.ICU 15:52 → M.2W 06-17 13:49 → M.ICU 06-19 11:32 → M.2W 06-27 13:04
PROVIDERS: Emergency Medicine; Internal Medicine; Internal Medicine Cardiovascular Disease; Internal Medicine Pulmonary Disease; Registered Nurse; ADMIT Internal Medicine
PROC: 02HV33Z Insertion of Infusion Device into Superior Vena Cava, Percutaneous Approach (ICD-10-PCS; principal; 2019-06-13)
PROC: 0BH17EZ Insertion of Endotracheal Airway into Trachea, Via Natural or Artificial Opening (ICD-10-PCS; principal; 2019-06-13)
PROC: 5A1945Z Respiratory Ventilation, 24-96 Consecutive Hours (ICD-10-PCS; principal; 2019-06-13)
PROC: B211YZZ Fluoroscopy of Multiple Coronary Arteries using Other Contrast (ICD-10-PCS; 2019-06-14)
PROC: 027034Z Dilation of Coronary Artery, One Artery with Drug-eluting Intraluminal Device, Percutaneous Approach (ICD-10-PCS; 2019-06-14)
PROC: 4A023N7 Measurement of Cardiac Sampling and Pressure, Left Heart, Percutaneous Approach (ICD-10-PCS; 2019-06-14)
PROC: 5A09357 Assistance with Respiratory Ventilation, Less than 24 Consecutive Hours, Continuous Positive Airway Pressure (ICD-10-PCS; 2019-06-15)
PROC: 5A09357 Assistance with Respiratory Ventilation, Less than 24 Consecutive Hours, Continuous Positive Airway Pressure (ICD-10-PCS; 2019-06-16)
PROC: 5A09357 Assistance with Respiratory Ventilation, Less than 24 Consecutive Hours, Continuous Positive Airway Pressure (ICD-10-PCS; 2019-06-17)
PROC: 5A09357 Assistance with Respiratory Ventilation, Less than 24 Consecutive Hours, Continuous Positive Airway Pressure (ICD-10-PCS; 2019-06-19)
PROC: 0BH17EZ Insertion of Endotracheal Airway into Trachea, Via Natural or Artificial Opening (ICD-10-PCS; 2019-06-19)
PROC: 5A1945Z Respiratory Ventilation, 24-96 Consecutive Hours (ICD-10-PCS; 2019-06-19)
PROC: 30233N1 Transfusion of Nonautologous Red Blood Cells into Peripheral Vein, Percutaneous Approach (ICD-10-PCS; 2019-06-19)
PROC: 5A09357 Assistance with Respiratory Ventilation, Less than 24 Consecutive Hours, Continuous Positive Airway Pressure (ICD-10-PCS; 2019-06-23)
PROC: 5A09357 Assistance with Respiratory Ventilation, Less than 24 Consecutive Hours, Continuous Positive Airway Pressure (ICD-10-PCS; 2019-06-24)
PROC: 5A09357 Assistance with Respiratory Ventilation, Less than 24 Consecutive Hours, Continuous Positive Airway Pressure (ICD-10-PCS; 2019-06-25)
PROC: 5A09357 Assistance with Respiratory Ventilation, Less than 24 Consecutive Hours, Continuous Positive Airway Pressure (ICD-10-PCS; 2019-06-28)
PROC: 5A09357 Assistance with Respiratory Ventilation, Less than 24 Consecutive Hours, Continuous Positive Airway Pressure (ICD-10-PCS; 2019-06-29)
PROC: 5A09357 Assistance with Respiratory Ventilation, Less than 24 Consecutive Hours, Continuous Positive Airway Pressure (ICD-10-PCS; 2019-06-30)
PROC: 5A09357 Assistance with Respiratory Ventilation, Less than 24 Consecutive Hours, Continuous Positive Airway Pressure (ICD-10-PCS; 2019-07-01)
PROC: 5A09357 Assistance with Respiratory Ventilation, Less than 24 Consecutive Hours, Continuous Positive Airway Pressure (ICD-10-PCS; 2019-07-02)
DX: A41.50 Gram-negative sepsis, unspecified (principal); J96.21 Acute and chronic respiratory failure with hypoxia; N17.0 Acute kidney failure with tubular necrosis; I21.4 Non-ST elevation (NSTEMI) myocardial infarction; I50.33 Acute on chronic diastolic (congestive) heart failure; J96.22 Acute and chronic respiratory failure with hypercapnia; J69.0 Pneumonitis due to inhalation of food and vomit; I46.9 Cardiac arrest, cause unspecified; Z68.43 Body mass index [BMI] 50.0-59.9, adult; I42.9 Cardiomyopathy, unspecified; E66.2 Morbid (severe) obesity with alveolar hypoventilation; J44.1 Chronic obstructive pulmonary disease with (acute) exacerbation; E87.2 Acidosis; D68.59 Other primary thrombophilia; G93.1 Anoxic brain damage, not elsewhere classified; K56.7 Ileus, unspecified; I13.0 Hypertensive heart and chronic kidney disease with heart failure and stage 1 through stage 4 chronic kidney disease, or unspecified chronic kidney disease; E87.0 Hyperosmolality and hypernatremia; E46 Unspecified protein-calorie malnutrition; F41.9 Anxiety disorder, unspecified; I89.0 Lymphedema, not elsewhere classified; N18.2 Chronic kidney disease, stage 2 (mild); I87.2 Venous insufficiency (chronic) (peripheral); E11.22 Type 2 diabetes mellitus with diabetic chronic kidney disease; I25.10 Atherosclerotic heart disease of native coronary artery without angina pectoris; K59.00 Constipation, unspecified; B35.6 Tinea cruris; D64.9 Anemia, unspecified; E86.0 Dehydration; R00.1 Bradycardia, unspecified; Z99.81 Dependence on supplemental oxygen; Z86.718 Personal history of other venous thrombosis and embolism; Z90.89 Acquired absence of other organs; Z98.891 History of uterine scar from previous surgery; Z79.899 Other long term (current) drug therapy; Z79.82 Long term (current) use of aspirin; Z79.4 Long term (current) use of insulin; Z79.01 Long term (current) use of anticoagulants; Z88.8 Allergy status to other drugs, medicaments and biological substances; Z87.891 Personal history of nicotine dependence; Z86.711 Personal history of pulmonary embolism; I25.2 Old myocardial infarction; Z87.01 Personal history of pneumonia (recurrent)

== ENCOUNTER 2019-07-03 13:45 | Inpatient (IN) | payer MEDICARE ==
[~2019-07-03] VITALS: Ht 160 cm; Wt 149.7 kg
[~2019-07-03 13:45] MED LIST changes: +COLACE100 MG PO; +EFFIENT10 MG PO; +GLUCAGON HCL1 MG IM; +GLUCOSE4 GM PO; +GLUTOSE GEL 1515 G1 PO; +IPRATROPIU0.2 MG/1 M INH; +LEVALBUTER1.25 MG/0. INH; +PROTONIX40 M2 PO; +TRAMADOL 50 MG50 MG PO
[2019-07-03] MEDS ORDERED: NYSTATIN 100,0015 G1 TOP (15:01)
[2019-07-03] MEDS ORDERED: SENOKOT-S1 TA2 PO (15:03)
[2019-07-03 16:00] VITALS: BP 88/52
--- NOTE | 2019-07-03 16:34 | NUR ---
WOUND NURSE: PATIENT SEEN FOR WOUND CARE WHILE IN RM: 205: HAS A SHALLOW OPEN LESION ON THE LEFT TIBIA CONTAINING PINK GRANULATION AND EPITHELIAL TISSUE IN THE WOUND BED. THERE IS A SMALL AMOUNT OF YELLOW DRAINAGE. CLEANSED BLE WITH SOAP AND WATER, RINSED WITH WATER,THEN PATTED DRY. APPLIED OPTIFOAM GENTLE AG TO WOUND BED, THE 2 LAYER TUBIGRIP SIZE E TO BLE. ALSO SHALLOW WOUND IN THE RIGHT GROIN AREA CONTAINING RED, GRANULATION TISSUE AND SEROUSANGUINOS DRAINAGE. CLEANSED ALSO PREVIOUSLY MENTIONED AND REAPPLIED OPTIFOAM GENTLE AG.
--- NOTE | 2019-07-03 17:56 | NUR ---
PT. ARRIVED PER SPECIALTY BED AT 1605 WITH . ALERT ORIENTED PLEASANT COOPERATIVE. HX OF DEBILITY RESP FAILURE. WEARING O2 AT 3L/M PER N/C CONTINOUSLY. ABLE TO ANSWER QUESTIONS ADMISSION ASSESSMENT. PT. HAS LARGE OPEN AREA UNDER RT. PANNUS. SOME REDNESS BUTTOCKS NO OPEN AREAS NOTED. SANABRIA PATENT WITH ORANGE SHAN URINE TO DD BAG. PT. ANXIOUS RE REHAB AND SHE FEELS VERY TIRED SHES BEEN IN HOSPITAL 20 DAYS. STATES SHES HAD PANIC ATTACKS. OBTAINED ORDER FOR PRN XANAX FROM EVELIO JANE. WEARING TUBIGRIPS BLES DID FEEL LIKE THEY ARE TIGHT READJUSTED SOME AND ELEVATED ON PILLOW. HOB ELEVATED FOR BETTER BREATHING. PT, VERY MORBIDLY OBESE. EXPLAINED REHAB ROUTINE TO PT. AND . PT. STATES L HIP AND SIDE PAIN BRUISING LARGE L SIDE. IJ RT. NECK TRIPPLE LUMEN. SIDE. IJ RT. NECK TRIPLE LUMEN.
[2019-07-03 20:19] VITALS: BP 161/55
[2019-07-04 04:19] LABS: HEMOGLOBIN 7.3 gm/dL (12.0-15.0); MCHC 31.8 g/dL (28.0-37.0); MCV 88.2 fL (80.0-100.0); MPV 7.3 fl. (7.2-11.1); RBC 2.61 mil/uL (4.20-5.00); RDW-CV 19.9 % (10.5-14.5); WBC 7.1 thou/uL (4.0-11.0)
[2019-07-04 04:26] LABS: CREATININE 0.7 mg/dL (0.6-1.3)
[2019-07-04 04:28] LABS: POTASSIUM 2.2 mmol/L (3.5-5.1)
[2019-07-04 04:29] LABS: CALCIUM 5.9 mg/dL (8.5-10.1)
--- NOTE | 2019-07-04 06:55 | NUR ---
ASSUMED PT CARE AT 1930. PT ALERT AND ORIENTED X4, POLITE AND COOPERATIVE WITH CARES. PT ON SPECIALTY BED. HX OF DEBILITY AND RESPIRATORY FAILURE. WORE HOME TRILOGY OVERNIGHT, 02 AT 3L. LARGE OPEN AREA UNDER RIGHT PANUS. REDNESS TO BUTTOCK BUT NO OPEN AREAS, BARRIER CREAM APPLIED. SANABRIA PATENT TO DD WITH SHAN URINE. TUBIGRIPS REMOVED FROM BLE, PT C/O LE PAIN. DRESSING TO RIGHT CHARLES INTACT. STOOL X1 THIS SHIFT. PT HAS LARGE BRUISES TO LEFT HIP AND THIGH. Q2 TURNS. PT SLEPT WELL. PT QUITE MORBIDLY OBESE. IJ RIGHT NECK, TRIPLE LUMEN. WHITE AND BLUE LUMENS FLUSH AND DRAW BACK. PINK LUMNEN FLUSHES BUT DOES NOT DRAW BACK. TRAMADOL ONCE THIS SHIFT FOR PAIN. HOURLY ROUNDING COMPLETE.
[2019-07-04 08:16] VITALS: BP 157/63
[2019-07-04 09:00] LABS: CREATININE 1.2 mg/dL (0.6-1.3); MAGNESIUM 1.6 mg/dL (1.8-2.4)
[2019-07-04 09:01] LABS: CALCIUM 8.8 mg/dL (8.5-10.1); POTASSIUM 3.7 mmol/L (3.5-5.1)
--- NOTE | 2019-07-04 16:04 | NUR ---
PT EARLY AM LABS REPORTED K+ TO BE 2.2. IV POTASSIUN STARTED TO RT.IJ PER PUMP ELECTROLYTE PROTOCAL. HERE THIS AM AND LABS WERE REDRAWN WITH K+ WNL AND IV POTASSIUM STOPPED. O2 REMAINS AT 3L PER NC. PT WAS GIVEN PRN FOR ANXIETY PER REQUEST THIS AM. PT WAS ASSISTED TO W/C WITH PT AND USE OF KAMINI LIFT AND WAS UP FOR 45-60MIN. PT DID NOT WANT TO EAT LUNCH BUT DID DRINK APPLE JUICE AND MILK AND THEN ATE TOMATO SOUP WITH CRACKERS.PT HAD BEEN PUT TO BED DUE TO C/O PAINFULL BUTTOX. PT TURNED AND REPOSITIONED WITH C/O LT PANUS PAIN WHEN POSITIONED TO RT.SIDE,PILLOW PLACED UNDER PANUS WITH RELIEF.INSULIN HELD AT LUNCH DUE TO LOW BG AND PT REQUEST AND POOR APPETITE. PT IN BED WITH PERICARE AND CLEANSING OF SANABRIA AND PANUS DONE.PT RESTS ON SPECIALTY BED.PT IS ALERT AND ORIENTATED WITH POOR ENERGY LEVEL.
--- NOTE | 2019-07-04 18:39 | NUR ---
PT HAS NOT EATEN SUPPER WELL THIS EVENING AND REQUESTS NOT TO TAKE INSULIN. PT REQUESTS PRN FOR ANXIETY AND PAIN OF BUTTOX AND IS GIVEN MEDICATIONS.PT REMAINS ON O2 AT 3L PER NC. PT VISITS WITH DAUGHTERS AND REMAINS ALERT AND ORIENTATED.PT TURNED AND REPOSITIONED Q2 HOUR AND PRN.
[2019-07-04 19:30] VITALS: BP 93/50
[2019-07-05 05:20] LABS: HEMATOCRIT 25.1 % (37.0-47.0); HEMOGLOBIN 7.9 gm/dL (12.0-15.0); MCH 27.8 pg (26.0-34.0); MCHC 31.5 g/dL (28.0-37.0); MCV 88.3 fL (80.0-100.0); MPV 7.5 fl. (7.2-11.1); RBC 2.84 mil/uL (4.20-5.00); RDW-CV 19.7 % (10.5-14.5); WBC 6.9 thou/uL (4.0-11.0)
[2019-07-05 05:46] LABS: CALCIUM 9.1 mg/dL (8.5-10.1); CREATININE 1.2 mg/dL (0.6-1.3); MAGNESIUM 1.7 mg/dL (1.8-2.4); POTASSIUM 3.3 mmol/L (3.5-5.1)
--- NOTE | 2019-07-05 06:11 | NUR ---
ASSUMED PT CARE AT 1930. PT ALERT AND ORIENTED X4, POLITE AND COOPERATIVE WITH CARES. PT ALREADY WEARING HOME TRILOGY AT SHIFT CHANGE. NO PAIN OR ANXIETY MEDS REQUESTED. STOOL X2 THIS SHIFT, BARRIER CREAM APPLIED. PT TURNED Q2 AND PRN. PT WEARING FOAM BOOTS TO PROTECT HER HEELS. DRESSING TO LEFT CHARLES INTACT. NYSTATIN TO UNDERSIDE OF LEFT PANUS. PT ON SPECIALTY BED. USES CALL LIGHT APPROPRIATELY. HOURLY ROUNDING COMPLETED.
[2019-07-05 07:55] VITALS: BP 157/56
--- NOTE | 2019-07-05 13:20 | NUR ---
Nutrition: Assess for rehab admit, no intake record since admit. Prior intake 75% avg. Wt down from acute admit, past week wt 320-330 lb. Lasix and other meds reviewed. B-99, BUN 19, no recent albumin. Pt reports she does not care for the meals served stating they are too heavy. Pt stated she has not used the alternative menu. Explained menu to pt and reviewed many of the "aircraft ordnance systems mechanic" options that are availble if she orders in advance. Encouraged pt to pick out items she would like and call in the entire days order in the am. Assess at low nutrition risk at this time, RD to follow weekly.
--- NOTE | 2019-07-05 13:42 | NUR ---
PT RESTLESS AND HAS C/O BLADDER SPASMS. SANABRIA IRRIGATED WITH 60 ML STERILE WATER WITH GOOD RETURN,CLEAR SHAN URINE WITH SEDIMENT NOTED. PT HAS LOOSE COUGH WITH POOR PRODUCTION. RESPITORY HAS BEEN CALLED TO GIVE PT BREATHING TX. PT SAT WITH COUGHING IS 83-88, O2 INCREASED TO 4L PER NC. RESP THERAPIST REPORTS SAT AT 99 DURING BREATHING TREATMENT AND HAS BROUGHT O2 BACK TO 3L PER NC. PT AT BEDSIDE AND HAS QUESTIONS ABOUT MEDICATIONS AND WANTING TO TALK TO DR. DR. MIKE NOTIFIED AND WILL WILL SPEAK WITH IN AM.
--- NOTE | 2019-07-05 14:36 | NUR ---
PT RESTING QUIETLY NOW WITH RESPIRATIONS EVEN AND UNLABORED. PT HAS NOW TAKEN PAIN MEDICATION. WOUND NURSE TO COME AND CHANGE DRESSINGS THIS AFTERNOON TO LEGS.SNACKS GIVEN TO PT,PT ONLY ATE 20% OF LUNCH.
--- NOTE | 2019-07-05 15:08 | NUR ---
RENEE and Dr Daugherty met with pt and pt to review team conference summary and RENEE initial assessment on inpt rehab unit. Safe dc plan for pt to dc to SNF at pt preference [facility]. RENEE faxed referral and spoke with Ramona in admissions at [facility] who is reviewing and won't accept yet due to pt participation/progress in therapy. Admissions at [facility] requesting therapy notes tomorrow and then would be willing to reconsider accepting pt if pt participates with therapies.
[2019-07-05 20:00] VITALS: BP 150/57
--- NOTE | 2019-07-06 01:41 | NUR ---
ASSUMED CARE @ 1924-.AWAKE IN BED W/ @ BEDSIDE.APPEARS SLEEPY.HOB UP ALMOST 90 DEGREES.02 ON @ 3L/NC.ON BED SPECIALTY.SANABRIA CATHETER PATENT. REFUSED RN TO GIVE 20 UNITS LANTUS @ HS.ACCUCHECK-92.RN EXPLAINED TO THAT IF PATIENT EATS HS SNACK-RN CAN GIVE LANTUS SINCE IT IS A LONG ACTING INSULIN. CLAIMED PATIENT DID NOT EAT DINNER.LANTUS INSULIN NOT GIVEN.SEE PAIN MANAGEMENT @ 2047.3 PORTS LEFT JUGULAR CENTRAL LINE HAS ALL 3 PORTS BLOOD RETURN & FLUSHED @ 2099.PATIENT DRANK ALL 120 ML APPLE JUICE W/ 10 % GURMEET CRACKERS HS SNACKS.TRILOGY PUT ON BY VARNISH INSPECTOR W/ 5L 02 @ 2129.PREVALON BOOTS APPLIED NILESH @ 2139.ON HOURLY ROUNDS.VARNISH INSPECTOR DOING ODD HOUR ROUNDS. O2 @ 2129.
--- NOTE | 2019-07-06 05:13 | NUR ---
SLEEPING SINCE 2129 & SLEPT GOOD ALL NIGHT.AWAKENED TO TURN.FOR DISCHARGE TO THE [facility] TODAY-07/06-WEDNESDAY.
[2019-07-06 07:45] VITALS: BP 139/89
[2019-07-06 09:07] LABS: BE 10.4 mmol/L (-2 to +3); pH 7.305 (7.340-7.450)
[2019-07-06 09:08] LABS: PO2 43.6 mmHg (75.0-100.0)
[2019-07-06 09:10] LABS: PCO2 79.8 mmHg (35.0-45.0)
[2019-07-06 10:50] LABS: BE 9.2 mmol/L (-2 to +3); PO2 77.2 mmHg (75.0-100.0)
[2019-07-06 10:53] LABS: PCO2 74.3 mmHg (35.0-45.0)
--- NOTE | 2019-07-06 10:55 | NUR ---
0745: PATIENT RESTING IN BED. REQUESTING REPOSITIONED OFF OF LT HIP. STATES IT HURTS. REPOSITIONING DONE W/ X3 NURSES, PATIENT ENC TO ASST. O2 3L/NC. REPORT REC'D PATIENT USED TRILOGY MACHINE THRU NOC. VS NOTED O2 SAT 87% 3L/NC, RECHECK 94% W/ HOB ELEVATED. PATIENT STATES SHE LOWERED THE HOB FOR COMFORT. ENC TO KEEP HOB UP. 0810: DTR IN TO SEE PATIENT STATES THAT PATIENT IS NOT HERSELF THIS AM, SEEMS MORE SLEEPY THAN USUAL. 0817: MESSAGE TO W/ UPDATE. 0825: ORDER FOR ABGs REC'D. 0910: BECKIE FROM LAB CALLED W/ CRITICAL VALUES: PC02 79.8, PO2 43.6, O2 74.9. DR MIKE PAGED. 0915: RT IN W/ BIPAP. 0920: CALL TO MONITOR TECHNICIAN W/ UPDATE. CALL TO DR FRASER W/ UPDATE. 0925: ORDER REC'D TO TRANSFER TO TELEMETRY UNIT FOR MONITORING. 1020: REPORT TO BELLE SCHUSTERMANNEQUIN MOLD MAKER UNIT. 1052: ABG CRITICAL REDRAW RESULT FROM BECKIE IN LAB, PCO2 74.3. 1055: CALL TO TELEMETRY FOR UPDATE, PATIENT TRANSFERRED FROM [facility] TO TELEMETRY PER JUMPBASTING COLLAR BASTER X2 AND RT PRESENT. REPOSITIONED IN BED PER PATIENT REQUEST. BIPAP ON AND FUNCTIONING APPROPRAITELY. JUMPBASTING COLLAR BASTER REPORTS PATIENT RESTING W/ EYES CLOSED DURING TRANSFER. ~TJRN
== END 2019-07-06 10:26 | disposition short-term general hospital (02) | DRG 189 ==
LOC: M.REH 13:45
PROVIDERS: Internal Medicine; ADMIT Physical Medicine & Rehabilitation
PROC: 5A09357 Assistance with Respiratory Ventilation, Less than 24 Consecutive Hours, Continuous Positive Airway Pressure (ICD-10-PCS; principal; 2019-07-04)
DX: J96.20 Acute and chronic respiratory failure, unspecified whether with hypoxia or hypercapnia (principal); J18.9 Pneumonia, unspecified organism; I50.32 Chronic diastolic (congestive) heart failure; Z68.43 Body mass index [BMI] 50.0-59.9, adult; R53.81 Other malaise; J44.9 Chronic obstructive pulmonary disease, unspecified; E66.9 Obesity, unspecified; E11.9 Type 2 diabetes mellitus without complications; I11.0 Hypertensive heart disease with heart failure; Z86.718 Personal history of other venous thrombosis and embolism; Z79.01 Long term (current) use of anticoagulants; Z98.891 History of uterine scar from previous surgery; Z87.891 Personal history of nicotine dependence; Z87.01 Personal history of pneumonia (recurrent); Z88.8 Allergy status to other drugs, medicaments and biological substances

== ENCOUNTER 2019-07-06 09:50 | Inpatient (IN) | payer MEDICARE ==
[~2019-07-06] VITALS: Ht 160 cm; Wt 149.7 kg
[~2019-07-06 09:50] MED LIST changes: +NYSTATIN 100,0015 G1 TOP; +SENOKOT-S1 TA2 PO
[2019-07-06 11:30] VITALS: BP 122/40
--- NOTE | 2019-07-06 13:34 | NUR ---
Pt transfer to acute from inpt rehab today. Plan was for pt to dc to SNF when medically ready; [facility] was pending acceptance due to request for therapy notes/pt needing to participate in therapies. Vs possible dc home if pt chooses not to participate in therapies.
--- NOTE | 2019-07-06 15:01 | NUR ---
Nutrition: consult for poor appetite. Pt just seen/assessed yesterday on rehab. Pt requesting "air conditioning manager" meals, explain how to use alternative menu. No intake recorded since Wednesday. Wt stable this week per records. Lasix, solumedrol and other meds reviewed. K+ 3.3, BUN 19, CO2 37, no recent albumin. Assess at mild nutrition risk. Currently pt on clear liquids, will order Ensure Clear BID.
[2019-07-06 15:33] LABS: PO2 66.3 mmHg (75.0-100.0); pH 7.338 (7.340-7.450)
[2019-07-06 15:37] LABS: PCO2 71.7 mmHg (35.0-45.0)
--- NOTE | 2019-07-06 16:55 | NUR ---
ASSUMED PT CARE AT AROUND 1100. ASSESSMENT COMPLETED CHARTED. ABLE TO MAKE NEEDS KNOWN NOW. PT IN ROOM WITH PT. C/O PAIN IN LEGS AND HIPS, GAVE PRN PAIN MEDICATION CHARTED AND [id number] COMPLETED CHARTED. PT RESTING IN BED AND EATING SUPPER AT THIS TIME. ON BIPAP WHILE NOT EATING. WILL CONTINUE TO MONITOR.
--- NOTE | 2019-07-06 18:00 | CON ---
[facility] [address] [place] [address] CONSULTATION Name: PAULYBASILIO Brandon Room: [address] [place] .R.#: [id number] Admission: 07/06/19 Attend Phys: Shari Mazariegos MD Discharge: Date of : 52 Report #: [id number] THIS REPORT FOR: //name// CC: Shari Mauricio DATE OF SERVICE: 07/06/2019 REQUESTING PHYSICIAN: Shari Mazariegos MD REASON FOR CONSULTATION: Acute respiratory failure, superimposed on chronic respiratory failure. DISCUSSION: The patient is a 68-year-old woman who is a remote smoker, quitting over 9 years ago. She has a history of COPD as well as a presumed obstructive sleep apnea and possibly obesity hypoventilation syndrome. She is on Trilogy at home and has been on that for some time according to her . She has had a hospital stay here since 06/13. At that time, she was admitted through the ED with acute onset respiratory failure and altered level of consciousness. She was intubated in the Emergency Department. She was quite hypercapnic. Our group did see her at that time. She is also noted to have an AK and heart failure, was quite ill. Did undergo cardiac catheterization and had stents placed. She was able to be extubated within several days, but subsequently did require reintubation and was able to be extubated on 06/22/2019. She did fair after that. Was requiring high flow nasal cannula. Was able to resume use of her home Trilogy at night. After spending some additional time on the floor (tele), she subsequently was transferred to rehabilitation. She had been doing relatively well there. Plans were in place for her to actually be discharged from rehabilitation today, but was going to go to group home and was not thought she was safe for her to return home at this time. She was noted to be quite lethargic and somnolent. Prior to that had been somewhat confused. Blood gases were done revealing worsening of her hypercapnia. BiPAP was started. I saw her this afternoon at the request of Dr. Mazariegos. She was remaining quite somnolent. Follow up gases have been done, continued to show hypercapnia though there has been some improvement in her pCO2 as well as some improvement in her pH. Given the alterations in her LOC, a CT head is to be done as well. PAST MEDICAL HISTORY: She has a very extensive past medical history. Morbid obesity is noted. She has been on Trilogy for a period of time. She has been treated for volume overload, had pneumonia recently. Also, has a past history of thromboembolic disease. She is on chronic supplemental O2 at home. She has chronic kidney disease. PAST SURGICAL HISTORY: She has had prior C-sections, tonsillectomy, chronic [place] [address] CONSULTATION Name: BASILIO COATS Room: [address] IN [facility]#: [id number] Admission: 07/06/19 Attend Phys: Shari Mazariegos MD Discharge: Date of : 52 Report #: [id number] SOCIAL HISTORY: She is . Remote smoker, quitting about 9 years ago. REVIEW OF SYSTEMS: Unable to obtain from the patient given her condition. Talking with her at the bedside, he notes her appetite has been just fair. She has not had any nausea or vomiting he is aware of. I see no documentation for that. He does believe she has been wearing her Trilogy every night. He had not noted any difficulty with p.o. intake, only that she has not had much of an appetite. No nausea or vomiting. She is not aware of any diarrhea. She is physically not very active, has not been up doing much in the way of any ambulation. Does appear Therapy have been working with her in attempts to do that. She has chronic issues with lower extremity edema. She had not complained of any chest pain to her . MEDICATIONS: Reviewed. She has been started on methylprednisolone. Her nebulizer treatments have been continued. PHYSICAL EXAMINATION: GENERAL APPEARANCE: Morbidly obese woman. Currently, he is on the BiPAP. FiO2 is down to 35%. Her SpO2 is running in the mid 90s. She is responding to noxious stimuli. HEENT: Sclerae nonicteric. Mucous membranes do look dry. NECK: Full. No definite JVD or adenopathy is appreciated. HEART: Tones are distant given her body habitus. They are regular. LUNGS: Sounds are a little coarse. No definite wheezing is heard. Breath sounds are diminished in part because of her body habitus. Excursion appears equal. She is drawing reasonable tidal volumes on the BiPAP. ABDOMEN: Very obese, appear soft. No definite hepatosplenomegaly is noted. No clubbing is noted. Radial pulses are present. EXTREMITIES: Warm. She does have some bandages present over parts of her lower extremity where she has wounds. SKIN: Warm. Turgor is fair. LABORATORY AND X-RAY FINDINGS: Arterial blood gas done earlier this morning, she had a pH of 7.31, a pCO2 of 80, pO2 of 44 on 5 liters. Follow up on blood gases with her most recent one being done a short time ago. Her pH is 7.34, pCO2 is 72, pO2 is 66, bicarbonate 38 with a saturation of 91%. A chest x-ray done today shows mild cardiomegaly. There is improvement changes of pulmonary edema, which had been noted earlier studies done in this hospital stay. Potassium is 3.3, BUN of 19, creatinine of 1.2, bicarbonate is 37. Magnesium yesterday was 1.7. White blood cell count 6900, hemoglobin 7.9, hematocrit 25.1, platelets are normal. Her last echocardiogram, which was done last month around the time of admission, was somewhat limited given her body habitus. Did appear EF was normal at 60%, but she did have grade 1 diastolic dysfunction. Had mild concentric LVH. RV was normal. She had mild pulmonary hypertension. IMPRESSION: [place] [address] CONSULTATION Name: BASILIO COATS Room: [address] IN [facility]#: [id number] Admission: 07/06/19 Attend Phys: Shari Mazariegos MD Discharge: Date of : 52 Report #: [id number] 1. Acute respiratory failure superimposed on chronic respiratory failure. Has had worsening of her hypercapnia. Does appear overall her baseline pCO2 is probably in the high 50s. Her last gas done here before the change in her status was close to that, it has been over a week ago. It is not clear why she had a change. As I review her medications, she has not had any new medications added such as benzodiazepines or narcotics, which could have contributed to this. She has not had a recent TSH done at this facility. Hypothyroidism could certainly be a consideration. 2. Alterations in mental status. This could be related to her hypercapnia. However, with her pH so close to normal, I would anticipate that mentation would be better. Do need to consider a neurological event. 3. Status post brief cardiopulmonary arrest. Known coronary artery disease, had stents placed last month. 4. Anemia has been an issue since admission. Did require transfusions. 5. Morbid obesity. 6. Chronic respiratory failure. She is on chronic O2 at home and use a Trilogy at night. Probably a combination of her chronic obstructive pulmonary disease, obstructive sleep apnea and obesity hypoventilation syndrome. 7. Remote history of thromboembolic disease. She had been on anticoagulation therapy. 8. Overall prognosis is guarded. RECOMMENDATIONS: 1. Did discuss with Dr. Mazariegos. We would recommend a CT head given the change in her condition that will be done. 2. Follow up blood gases. If they worsen or she did not improve, may need ICU transfer and possible intubation. 3. We will also check TSH and free T4. 4. Agree with IV steroids, which have been started and continue her nebulizer treatments every 4 hours. 5. Discussed with her at the bedside. <ELECTRONICALLY SIGNED> By: Basilio Verma MD 07/06/19 1800 [id number] Verma MD /nt
[2019-07-06 18:32] VITALS: BP 111/95
[2019-07-06 20:00] VITALS: BP 96/47
[2019-07-07] VITALS (9 sets, daily range): BP systolic 104–167; BP diastolic 41–76
[2019-07-07 04:06] LABS: HEMATOCRIT 22.2 % (37.0-47.0); MCH 27.1 pg (26.0-34.0); MCHC 31.1 g/dL (28.0-37.0); MCV 87.1 fL (80.0-100.0); MPV 7.6 fl. (7.2-11.1); RBC 2.55 mil/uL (4.20-5.00); RDW-CV 19.5 % (10.5-14.5); WBC 3.6 thou/uL (4.0-11.0)
[2019-07-07 04:16] LABS: HEMOGLOBIN 6.9 gm/dL (12.0-15.0)
[2019-07-07 04:23] LABS: CALCIUM 8.7 mg/dL (8.5-10.1); CREATININE 1.5 mg/dL (0.6-1.3); MAGNESIUM 1.7 mg/dL (1.8-2.4); POTASSIUM 4.1 mmol/L (3.5-5.1); TOTAL BILIRUBIN 0.5 mg/dL (<0.1-1.0); TOTAL PROTEIN 6.4 g/dL (6.4-8.2)
[2019-07-07 05:04] LABS: BE 9.3 mmol/L (-2 to +3); PO2 78.5 mmHg (75.0-100.0); pH 7.375 (7.340-7.450)
[2019-07-07 05:06] LABS: PCO2 62.9 mmHg (35.0-45.0)
--- NOTE | 2019-07-07 13:00 | NUR ---
ASSUMED PT CARE AT 0730, FULL ASSESMENT DONE CHARTED. PT A/OX4 BUT DROWSY THIS AM. PT FUSSING ABOUT POSITIONING IN BED, PT UP WITH KAMINI BUT HAS NOT WANTED OUT OF BED THIS AM. PTS VSS, SR/BBB ON THE MONITOR. PT USING BED AGUILAR FOR BM. PT TO RECEIVE 1 UNIT PRBC'S TODAY. ON BIPAP WHILE SLEEPING. 5L HIGH FLOW AWAKE. ACCU CHECKS DONE ACHS. PT TURNED Q 2 HR, MAX ASSIST. REPORT HANDED OFF TO LUCINA ODONNELL AT APPROX 1230
--- NOTE | 2019-07-07 17:30 | NUR ---
WOUND CARE NOTE: CONSULT RECIEVED FOR MULTIPLE LE WOUNDS PATIENT KNOWN TO ME FROM PREVIOUS HOSPITAL STAYS. CONTINUES TO HAVE AN ULCERATION TO HER LEFT PRETIBIAL AREA. WOUND MEASURES 3.8X2.5X0.1. PALE, MOIST WOUND BED DRAINING SMALL AMOUNTS OF SEROSANGUINEOUS DRAINAGE. MORALES-WOUND IS EDEMATOUS. REDDENED AT THE GAITER AREA. RIGHT LEG WITH EDEMA. RIGHT LEG WITH REDNESS AT THE GAITER AREA. PATIENT DOES NOT HAVE ANY TUBIGRIPS TO EITHER LEG. CLEANSED BILATERAL LEGS WITH SOAP AND WATER, PATTED DRY. APPLIED LOTION TO INTACT SKIN. APPLIED SIZE F DOUBLE LAYER TUBIGRIPS TO BOTH LEGS. PATIENT TOLERATED WELL. ADMITS TO HER HEELS HURTING, STATES SHE HAS BEEN WEARING THE BOOTS AT NIGHT. EDUCATED PATIENT THAT IT WOULD BE IMPORTANT TO WEAR THESE BOOTS WHEN SHE IS IN BED. RIGHT HEEL IS REDDENED, BUT BLANCHES. PATIENT COMMUNICATES UNDERSTANDING AND ALLOWED FOR THE PLACEMENT OF THE BOOTS. RECOMMEND REMOVE TUBIGRIPS DAILY, WASH LEGS WITH SOAP AND WATER, APPLY LOTION TO INTACT SKIN. APPLY NEW OPTIFOAM AG TO LEFT LEG ULCER. REPLACE TUBIGRIPS-MAY USE CURRENT ONES LONG THEY ARE NOT VISIBLY SOILED ENCOURAGE GOOD NUTRTION/HYDRATION OFFLOADING BOOTS WHEN IN BED. TURN Q2 HOURS TIGHT BLOOD GLUCOSE CONTROL.
--- NOTE | 2019-07-07 18:58 | NUR ---
RECEIVED REPORT FROM ARMANDO ODONNELL. ASSUMED CARE OF PT AROUND 1245. PT A&O X4. VSS. O2 SAT >90% ON 5L PER HF CANNULA, PT USING BIPAP DURING SLEEP. PT RECEVIED 1 UINT PRBC'S, NO REACTION. PT SEEN BY WOUND CARE THIS AFTERNOON - LEGS WRAPPED WITH TUBIGRIPS. PT TURNED Q2HRS AND NEEDED. PROPULSION SYSTEMS ENGINEER IN PLACE TRACING SR WITH BBB WITH NO CHANGES THIS SHIFT. PT TOLERATING DIET. AT BEDSIDE. FOELY IN PLACE TO DD. PT COMPLAINING OF GENERALIZED PAIN THIS EVENING AND RECEIVED PO PAIN MEDICATION. CENTRAL LINE INTACT, SLUGGISH TO FLUSH. DOCTOR MESSAGED FOR POSSIBLE REPLACEMENT OF CENTRAL LINE/DC ORDERS. PT CURRENTLY RESTING IN BED. CALL LIGHT IS WITHIN REACH,. HOURLY ROUNDING PERFORMED. FALL PRECAUTIONS IN PLACE.
--- NOTE | 2019-07-07 19:04 | NUR ---
THIS RN HAS REVIEWED AND AGREES WITH THE ASSESSMENT AND CHARTING OF ALBERTO ODONNELL.
[2019-07-07 23:04] LABS: HEMATOCRIT 25.1 % (37.0-47.0)
[2019-07-08 04:00] VITALS: BP 153/66
--- NOTE | 2019-07-08 05:30 | NUR ---
ASSUMED PATIENT CARE AT 1900. ASSESSMENT COMPLETED CHARTED. VSS. PATIENT ON 5L NC. SR/BBB ON MONITOR. HOURLY ROUNDING IN PLACE FOR PATIENT SAFETY. CLWR
--- NOTE | 2019-07-08 06:09 | NUR ---
I HAVE REVIEWED AND AGREE WITH NURSING ASSESSMENT COMPLETED BY CLEO BATRES RN.
[2019-07-08 08:00] VITALS: BP 158/68
[2019-07-08 09:07] LABS: CALCIUM 8.9 mg/dL (8.5-10.1); CREATININE 1.8 mg/dL (0.6-1.3); POTASSIUM 3.9 mmol/L (3.5-5.1)
[2019-07-08 09:08] LABS: HEMATOCRIT 25.4 % (37.0-47.0); HEMOGLOBIN 8.1 gm/dL (12.0-15.0); MCHC 31.9 g/dL (28.0-37.0); MCV 87.9 fL (80.0-100.0); MPV 7.8 fl. (7.2-11.1); NUCLEATED RBCS 0 /100WBC; PLATELET COUNT* 382 thou/uL (150-400); RBC 2.89 mil/uL (4.20-5.00); RDW-CV 18.3 % (10.5-14.5); WBC 5.1 thou/uL (4.0-11.0)
[2019-07-08 10:02] LABS: ABSOLUTE LYMPHOCYTES 0.3 thou/uL (0.8-5.3); ABSOLUTE MONOCYTES 0.1 thou/uL (0.0-1.2); ABSOLUTE NEUTROPHILS 4.8 thou/uL (1.6-8.1)
[2019-07-08 10:03] LABS: HYPOCHROMASIA 1+; PLATELET ESTIMATE ADEQUATE; POLYCHROMASIA 1+
[2019-07-08 10:04] LABS: ANISOCYTOSIS 1+; POIKILOCYTOSIS 1+
[2019-07-08 11:30] VITALS: BP 152/62
[2019-07-08 18:07] VITALS: BP 167/64
[2019-07-08 20:00] VITALS: BP 113/49
[2019-07-09] VITALS (7 sets, daily range): BP systolic 116–186; BP diastolic 52–68
--- NOTE | 2019-07-09 04:46 | NUR ---
ASSUMED PATIENT CARE AT 1900. ASSESSMENT COMPLETED CHARTED. VSS. SR WITH BBB ON MONITOR. HOURLY ROUNDING IN PLACE FOR PATIENT SAFETY. CLWR.
--- NOTE | 2019-07-09 06:12 | NUR ---
I HAVE REVIEWED AND AND AGREE WITH NURSING ASSESSMENT COMPLETED BY CLEO BATRES RN.
--- NOTE | 2019-07-09 16:14 | NUR ---
ASSUSSMED CARE OF PT APPROX 0730. REASSESSMENT COMPLETED CHARRTED. MEDICATIONS GIVEN CHARTED. CARE DISCUSSED WITH PT, PT VERBALIZED UNDERSTAND. AT LUNCH TIME PTS HAD QUESTIONS ABOUT INSULIN GIVEN THIS SHIFT. SLIDING SCALE AND SCHEDULED INSULIN DISCUSSED WITH PTS . PTS APPEARED AGITATED ABOUT INSULIN GIVEN. AFTER DISCUSSION WITH PTS HUBAND CHARGE NURSE WENT TO DISCUSS MEDICATIONS WITH PT. PTS GLUCOSE RECHECKED 1 HOUR AFTER INSULIN ADMINISTRATION, RESULTS REVIEWED. SAFTEY PRECATIONS INPLACE. HOURLY ROUNING FOR PT SAFTEY. CALL LIGHT WITHIN REACH.
[2019-07-10 04:07] VITALS: BP 130/62
--- NOTE | 2019-07-10 04:18 | NUR ---
ASSUMED PATIENT CARE 1899. ASSESSMENT COMLPETED CHARTED. VSS. SR WITH BBB ON MONITOR. HOURLY ROUNDING IN PLACE FOR PATIENT SAFETY. CLWR.
--- NOTE | 2019-07-10 07:05 | NUR ---
I HAVE REVIEWED AND AGREE WITH NURSING ASSESSMENT COMPLETED BY CLEO BATRES RN
[2019-07-10 08:00] VITALS: BP 118/38
[2019-07-10 11:30] VITALS: BP 174/56
[2019-07-10] MEDS ORDERED: LANTUS100 UNIT/M SUBQ (13:25)
--- NOTE | 2019-07-10 14:50 | NUR ---
CONTINUE TO FOLLOW. MET WITH PT, SHE WAS READMITTED TO ACUTE CARE FROM [facility] AND NOW PLANS TO GO TO [facility] AT ME. MET WITH PT. ORDER RECEIVED TO HAVE HER TRILOGY CHECKED. CALLED AND SPOKE WITH [facility]. BARBI FROM [facility] HERE THIS AFTERNOON AND EXCHANGED UNIT. HE ALSO SPOKE WITH RT AND ADJUSTED MACHINE. PT TO WEAR TONIGHT AND POSSIBLE DC TO SNF TOMORROW. CALLED AND FAXED UPDATE TO [facility], THEY CAN ACCEPT AT [place]. WILL FOLLOW
[2019-07-10 16:00] VITALS: BP 174/61
[2019-07-10 20:00] VITALS: BP 176/51
[2019-07-11 00:05] VITALS: BP 121/46
[2019-07-11 04:42] VITALS: BP 154/64
--- NOTE | 2019-07-11 05:23 | NUR ---
ASSUMED CARE AT 1900. ASSESSMENT COMPLETED CHARTED. VSS. PATIENT IS SR/BBB ON MONITOR. HOURLY ROUNDING IN PLACE FOR PATIENT SAFETY. CLWR.
[2019-07-11 06:10] LABS: HEMATOCRIT 28.6 % (37.0-47.0); MCH 27.4 pg (26.0-34.0); MCHC 31.6 g/dL (28.0-37.0); MCV 86.8 fL (80.0-100.0); MPV 7.1 fl. (7.2-11.1); RBC 3.29 mil/uL (4.20-5.00); RDW-CV 18.5 % (10.5-14.5); WBC 5.4 thou/uL (4.0-11.0)
[2019-07-11 06:21] LABS: CALCIUM 9.2 mg/dL (8.5-10.1); CREATININE 1.4 mg/dL (0.6-1.3); MAGNESIUM 1.5 mg/dL (1.8-2.4); POTASSIUM 3.4 mmol/L (3.5-5.1)
--- NOTE | 2019-07-11 06:34 | NUR ---
I HAVE REVIEWED AND AGREE WITH NURSING ASSESSMENT COMPLETED BY CLEO BATRES RN.
[2019-07-11 08:24] VITALS: BP 121/51
[2019-07-11] MEDS ORDERED: HYDROCODON-ACE1 EAC7 PO (11:04)
[2019-07-11] MEDS ORDERED: ALPRAZOLAM0.5 M2 PO (11:04)
[2019-07-11] MEDS ORDERED: TRAMADOL 50 MG50 MG PO (11:04)
[2019-07-11] MEDS ORDERED: ENOXAPARIN40 MG/0.1 SUBQ (11:56)
[2019-07-11] MEDS ORDERED: MIRALAX17 GM PO (11:58)
[2019-07-11] MEDS ORDERED: PAXIL10 MG PO (12:01)
[2019-07-11] MEDS ORDERED: PREDNISONE 20 M20 MG PO (12:02)
[2019-07-11 12:07] VITALS: BP 121/51
--- NOTE | 2019-07-11 13:58 | NUR ---
REPORT GIVEN TO RECEIVING NURSE AT [facility]. ANTICIPATE TRANSPORTATION AROUND 1500 TODAY. ASSUMED CARE OF PT AROUND 0730 THIS AM. REFER TO ASSESSMENT. CENTRAL LINE DC'D INTACT THIS AFTERNOON. [place] DC'D THIS AFTERNOON WELL. PT HAS NOT VOIDED POST [place] AT THIS TIME. PT TOLERATING HOME DOSE O2 AT 2L/NC. NO OTHER CONCERNS AT THIS TIME. CLWR. WCTM.
--- NOTE | 2019-07-11 14:18 | NUR ---
ORDERS NOTED FOR DC TO SNF/[facility]. PT CLEARED BY DR ZULUAGA.PT HAS TRILOGY TO TAKE WITH HER. CHART COPIED. ORDERS CALLED AND FAXED TO [facility], THEY WILL ACCEPT TODAY. ARRANGED AMBULANCE FOR 3PM. RN HAS NUMBER TO CALL REPORT AND TO GIVE TO SPOUSE AT BEDSIDE. PT AND SPOUSE AWARE AND AGREE WITH PLAN
== END 2019-07-11 14:58 | DRG 291 ==
LOC: M.2W 09:50
PROVIDERS: Family Medicine; Internal Medicine Pulmonary Disease; ADMIT Internal Medicine
PROC: 5A09357 Assistance with Respiratory Ventilation, Less than 24 Consecutive Hours, Continuous Positive Airway Pressure (ICD-10-PCS; principal; 2019-07-06)
PROC: 30233N1 Transfusion of Nonautologous Red Blood Cells into Peripheral Vein, Percutaneous Approach (ICD-10-PCS; 2019-07-07)
PROC: 5A09357 Assistance with Respiratory Ventilation, Less than 24 Consecutive Hours, Continuous Positive Airway Pressure (ICD-10-PCS; 2019-07-07)
PROC: 5A09357 Assistance with Respiratory Ventilation, Less than 24 Consecutive Hours, Continuous Positive Airway Pressure (ICD-10-PCS; 2019-07-08)
PROC: 5A09357 Assistance with Respiratory Ventilation, Less than 24 Consecutive Hours, Continuous Positive Airway Pressure (ICD-10-PCS; 2019-07-09)
PROC: 5A09357 Assistance with Respiratory Ventilation, Less than 24 Consecutive Hours, Continuous Positive Airway Pressure (ICD-10-PCS; 2019-07-10)
DX: I50.33 Acute on chronic diastolic (congestive) heart failure (principal); J96.22 Acute and chronic respiratory failure with hypercapnia; J96.21 Acute and chronic respiratory failure with hypoxia; G93.41 Metabolic encephalopathy; R65.11 Systemic inflammatory response syndrome (SIRS) of non-infectious origin with acute organ dysfunction; E66.2 Morbid (severe) obesity with alveolar hypoventilation; J44.1 Chronic obstructive pulmonary disease with (acute) exacerbation; Z68.43 Body mass index [BMI] 50.0-59.9, adult; N18.9 Chronic kidney disease, unspecified; D64.9 Anemia, unspecified; I25.10 Atherosclerotic heart disease of native coronary artery without angina pectoris; I87.8 Other specified disorders of veins; I25.2 Old myocardial infarction; Z99.81 Dependence on supplemental oxygen; Z87.01 Personal history of pneumonia (recurrent); Z90.89 Acquired absence of other organs; Z98.891 History of uterine scar from previous surgery; Z95.5 Presence of coronary angioplasty implant and graft; Z87.891 Personal history of nicotine dependence; Z79.01 Long term (current) use of anticoagulants; Z79.899 Other long term (current) drug therapy; Z79.4 Long term (current) use of insulin; Z86.718 Personal history of other venous thrombosis and embolism

== ENCOUNTER → 2019-07-27 | Outpatient (CLI) | payer MEDICARE ==
[~2019-07-27] MED LIST changes: +ALPRAZOLAM0.5 M2 PO; +ENOXAPARIN40 MG/0.1 SUBQ; +HYDROCODON-ACE1 EAC7 PO; +MIRALAX17 GM PO; +PAXIL10 MG PO
== END ==
LOC: M.WC 07-20 09:00
DX: E11.622 Type 2 diabetes mellitus with other skin ulcer (principal); I87.312 Chronic venous hypertension (idiopathic) with ulcer of left lower extremity; L97.822 Non-pressure chronic ulcer of other part of left lower leg with fat layer exposed; I70.242 Atherosclerosis of native arteries of left leg with ulceration of calf; L97.221 Non-pressure chronic ulcer of left calf limited to breakdown of skin; L89.892 Pressure ulcer of other site, stage 2; L98.491 Non-pressure chronic ulcer of skin of other sites limited to breakdown of skin; E11.51 Type 2 diabetes mellitus with diabetic peripheral angiopathy without gangrene; E66.01 Morbid (severe) obesity due to excess calories; I50.9 Heart failure, unspecified; J44.9 Chronic obstructive pulmonary disease, unspecified; K21.9 Gastro-esophageal reflux disease without esophagitis; F41.9 Anxiety disorder, unspecified; F32.9 Major depressive disorder, single episode, unspecified; Z86.718 Personal history of other venous thrombosis and embolism; Z79.4 Long term (current) use of insulin; Z68.43 Body mass index [BMI] 50.0-59.9, adult; Z87.891 Personal history of nicotine dependence

== ENCOUNTER → 2019-08-10 | Outpatient (CLI) | payer MEDICARE | LOC: M.WC 05:38 | DX: E11.622 Type 2 diabetes mellitus with other skin ulcer (principal); I87.313 Chronic venous hypertension (idiopathic) with ulcer of bilateral lower extremity; L97.812 Non-pressure chronic ulcer of other part of right lower leg with fat layer exposed; I70.242 Atherosclerosis of native arteries of left leg with ulceration of calf; L97.222 Non-pressure chronic ulcer of left calf with fat layer exposed; E11.51 Type 2 diabetes mellitus with diabetic peripheral angiopathy without gangrene; E66.01 Morbid (severe) obesity due to excess calories; L89.892 Pressure ulcer of other site, stage 2; K21.9 Gastro-esophageal reflux disease without esophagitis; I50.9 Heart failure, unspecified; J44.9 Chronic obstructive pulmonary disease, unspecified; F41.9 Anxiety disorder, unspecified; F32.9 Major depressive disorder, single episode, unspecified; Z87.891 Personal history of nicotine dependence; Z86.718 Personal history of other venous thrombosis and embolism; Z68.43 Body mass index [BMI] 50.0-59.9, adult ==

== ENCOUNTER → 2019-09-13 | Outpatient (CLI) | payer MEDICARE | LOC: M.WC 10:00 | DX: E11.622 Type 2 diabetes mellitus with other skin ulcer (principal); I87.312 Chronic venous hypertension (idiopathic) with ulcer of left lower extremity; I70.242 Atherosclerosis of native arteries of left leg with ulceration of calf; L97.821 Non-pressure chronic ulcer of other part of left lower leg limited to breakdown of skin; E11.51 Type 2 diabetes mellitus with diabetic peripheral angiopathy without gangrene; E11.65 Type 2 diabetes mellitus with hyperglycemia; E66.01 Morbid (severe) obesity due to excess calories; I50.9 Heart failure, unspecified; J44.9 Chronic obstructive pulmonary disease, unspecified; K21.9 Gastro-esophageal reflux disease without esophagitis; F41.9 Anxiety disorder, unspecified; F32.9 Major depressive disorder, single episode, unspecified; Z86.718 Personal history of other venous thrombosis and embolism; Z68.43 Body mass index [BMI] 50.0-59.9, adult; Z87.891 Personal history of nicotine dependence ==

== ENCOUNTER → 2019-10-11 | Outpatient (CLI) | payer MEDICARE | LOC: M.WC 10:00 | DX: E11.622 Type 2 diabetes mellitus with other skin ulcer (principal); I87.313 Chronic venous hypertension (idiopathic) with ulcer of bilateral lower extremity; I70.242 Atherosclerosis of native arteries of left leg with ulceration of calf; L97.222 Non-pressure chronic ulcer of left calf with fat layer exposed; L97.811 Non-pressure chronic ulcer of other part of right lower leg limited to breakdown of skin; E11.51 Type 2 diabetes mellitus with diabetic peripheral angiopathy without gangrene; E11.65 Type 2 diabetes mellitus with hyperglycemia; E66.01 Morbid (severe) obesity due to excess calories; I11.0 Hypertensive heart disease with heart failure; I50.9 Heart failure, unspecified; J44.9 Chronic obstructive pulmonary disease, unspecified; K21.9 Gastro-esophageal reflux disease without esophagitis; F41.9 Anxiety disorder, unspecified; F32.9 Major depressive disorder, single episode, unspecified; Z86.718 Personal history of other venous thrombosis and embolism; Z68.43 Body mass index [BMI] 50.0-59.9, adult; Z87.891 Personal history of nicotine dependence ==

== ENCOUNTER → 2019-11-01 | Outpatient (CLI) | payer MEDICARE, MEDICAID | LOC: M.WC 04:33 | DX: E11.622 Type 2 diabetes mellitus with other skin ulcer (principal); I87.313 Chronic venous hypertension (idiopathic) with ulcer of bilateral lower extremity; I70.242 Atherosclerosis of native arteries of left leg with ulceration of calf; L97.222 Non-pressure chronic ulcer of left calf with fat layer exposed; L97.822 Non-pressure chronic ulcer of other part of left lower leg with fat layer exposed; L97.811 Non-pressure chronic ulcer of other part of right lower leg limited to breakdown of skin; E11.51 Type 2 diabetes mellitus with diabetic peripheral angiopathy without gangrene; E11.65 Type 2 diabetes mellitus with hyperglycemia; E66.01 Morbid (severe) obesity due to excess calories; I11.0 Hypertensive heart disease with heart failure; I50.9 Heart failure, unspecified; J44.9 Chronic obstructive pulmonary disease, unspecified; K21.9 Gastro-esophageal reflux disease without esophagitis; F41.9 Anxiety disorder, unspecified; F32.9 Major depressive disorder, single episode, unspecified; Z68.43 Body mass index [BMI] 50.0-59.9, adult; Z86.718 Personal history of other venous thrombosis and embolism; Z87.891 Personal history of nicotine dependence ==

== ENCOUNTER → 2019-11-22 | Outpatient (CLI) | payer MEDICARE, MEDICAID | LOC: M.WC 00:20 | DX: L97.313 Non-pressure chronic ulcer of right ankle with necrosis of muscle (principal); L97.822 Non-pressure chronic ulcer of other part of left lower leg with fat layer exposed; L97.222 Non-pressure chronic ulcer of left calf with fat layer exposed; L97.811 Non-pressure chronic ulcer of other part of right lower leg limited to breakdown of skin; E11.51 Type 2 diabetes mellitus with diabetic peripheral angiopathy without gangrene; E11.65 Type 2 diabetes mellitus with hyperglycemia; E66.9 Obesity, unspecified; I11.0 Hypertensive heart disease with heart failure; I50.9 Heart failure, unspecified; J44.9 Chronic obstructive pulmonary disease, unspecified; K21.9 Gastro-esophageal reflux disease without esophagitis; F41.9 Anxiety disorder, unspecified; F32.9 Major depressive disorder, single episode, unspecified; Z68.43 Body mass index [BMI] 50.0-59.9, adult; Z86.718 Personal history of other venous thrombosis and embolism; Z87.891 Personal history of nicotine dependence ==

== ENCOUNTER → 2019-12-06 | Outpatient (CLI) | payer MEDICARE, MEDICAID ==
[2019-12-06 11:52] LABS: ABSOLUTE BASOPHILS 0.1 thou/uL (0.0-0.2); ABSOLUTE EOSINOPHILS 0.2 thou/uL (0.0-0.7); ABSOLUTE LYMPHOCYTES 2.3 thou/uL (0.8-5.3); ABSOLUTE MONOCYTES 0.6 thou/uL (0.0-1.2); ABSOLUTE NEUTROPHILS 9.1 thou/uL (1.6-8.1); BASOPHILS 0.7 %; EOSINOPHILS 1.7 %; HEMATOCRIT 32.1 % (37.0-47.0); HEMOGLOBIN 10.4 gm/dL (12.0-15.0); LYMPHOCYTES 18.6 %; MCH 28.5 pg (26.0-34.0); MCHC 32.3 g/dL (28.0-37.0); MCV 88.2 fL (80.0-100.0); MPV 7.2 fl. (7.2-11.1); NUCLEATED RBCS 0 /100WBC; PLATELET COUNT* 632 thou/uL (150-400); RBC 3.64 mil/uL (4.20-5.00); RDW-CV 17.5 % (10.5-14.5); WBC 12.3 thou/uL (4.0-11.0)
[2019-12-06 12:14] LABS: ALBUMIN 2.2 g/dL (3.4-5.0); ALKALINE PHOSPHATASE 177 U/L (46-116); ANION GAP 5 mmol/L (7-16); BUN 30 mg/dL (7-18); CHLORIDE 101 mmol/L (98-107); CHOLESTEROL 106 mg/dL (<200); CO2 35 mmol/L (21-32); CREATININE 2.2 mg/dL (0.6-1.3); GLUCOSE 148 mg/dL (70-99); HDL CHOLESTEROL 29 mg/dL (>40); LDL CHOLESTEROL 43 mg/dL (<100); POTASSIUM 4.2 mmol/L (3.5-5.1); SERUM ASSESSMENT Clear; SGOT 28 U/L (15-37); SGPT 16 U/L (30-65); SODIUM 141 mmol/L (136-145); TC:HDL 3.7 Ratio (Not establshd); TOTAL BILIRUBIN 0.3 mg/dL (<0.1-1.0); TOTAL PROTEIN 7.9 g/dL (6.4-8.2); TRIGLYCERIDE 174 mg/dL (<150); VLDL 35 mg/dL (<40)
[2019-12-06 13:16] LABS: MAGNESIUM 0.6 mg/dL (1.8-2.4)
[2019-12-07 02:07] LABS: GLYCOHEMOGLOBIN (HGB A1C) 4.9 % (4.8-5.6)
== END ==
LOC: M.WC 04:26 → M.LAB 04:26 → M.WC 10:00
PROVIDERS: Surgery
DX: E11.622 Type 2 diabetes mellitus with other skin ulcer (principal); I87.313 Chronic venous hypertension (idiopathic) with ulcer of bilateral lower extremity; L97.822 Non-pressure chronic ulcer of other part of left lower leg with fat layer exposed; L97.222 Non-pressure chronic ulcer of left calf with fat layer exposed; E11.51 Type 2 diabetes mellitus with diabetic peripheral angiopathy without gangrene; E11.65 Type 2 diabetes mellitus with hyperglycemia; E66.9 Obesity, unspecified; I11.0 Hypertensive heart disease with heart failure; I50.9 Heart failure, unspecified; K21.9 Gastro-esophageal reflux disease without esophagitis; J44.9 Chronic obstructive pulmonary disease, unspecified; F41.9 Anxiety disorder, unspecified; F32.9 Major depressive disorder, single episode, unspecified; Z87.891 Personal history of nicotine dependence; Z86.718 Personal history of other venous thrombosis and embolism; Z68.43 Body mass index [BMI] 50.0-59.9, adult